=== PATIENT | female | born 1950 | race Caucasian/White ===

== ENCOUNTER → 2016-03-24 | Outpatient (REF) | payer MEDICARE ==
[2016-03-24 12:50] LABS: ALBUMIN 4.2 GM/DL (3.2-5.2); ALBUMIN/GLOBULIN RATIO 1.68 (1.00-1.93); BILIRUBIN,TOTAL 0.5 MG/DL (0.2-1.0); CALCIUM LEVEL 9.8 MG/DL (8.8-10.2); CREATININE FOR GFR 1.12 MG/DL (0.55-1.02); POTASSIUM SERUM 4.5 MEQ/L (3.5-5.1); TOTAL PROTEIN 6.7 GM/DL (6.4-8.2)
[2016-03-24 13:06] LABS: MEAN CORPUSCULAR HEMOGLOBIN 28.9 pg (27.0-33.0); MEAN CORPUSCULAR HGB CONC 32.9 g/dl (32.0-36.5); WHITE BLOOD COUNT 4.5 K/mm3 (4.0-10.0)
== END ==
LOC: M SFHCPLAZ 08:20
PROVIDERS: ATTEND Internal Medicine
DX: Z85.3 Personal history of malignant neoplasm of breast (principal); E11.9 Type 2 diabetes mellitus without complications; E78.00 Pure hypercholesterolemia, unspecified; M85.80 Other specified disorders of bone density and structure, unspecified site

== ENCOUNTER → 2016-05-16 | Outpatient (RCR) | payer MEDICARE | LOC: M PT 08:58 | PROVIDERS: ATTEND Physician Assistant Medical | DX: Z51.89 Encounter for other specified aftercare (principal); M76.62 Achilles tendinitis, left leg | CPT/HCPCS: 97161; G8978; G8979 ==

== ENCOUNTER 2016-06-12 08:44 | Outpatient (RCR) | payer MEDICARE | END 2016-06-15 | LOC: M PT 08:44 | PROVIDERS: ATTEND Physician Assistant Medical | DX: M76.62 Achilles tendinitis, left leg (principal) ==

== ENCOUNTER 2016-07-08 10:57 | Outpatient (RCR) | payer MEDICARE | END 2016-07-08 12:32 | disposition home or self-care (01) | LOC: M PT 10:57 | PROVIDERS: ATTEND Physician Assistant Medical | DX: Z51.89 Encounter for other specified aftercare (principal); M76.62 Achilles tendinitis, left leg | CPT/HCPCS: 97110; 97140; 97530; G8978; G8979; G8980 ==

== ENCOUNTER → 2016-07-31 | Outpatient (CLI) | payer MEDICARE ==
--- NOTE | 2016-07-31 12:36 | REP ---
Chest two views HISTORY: Cough Comparison: 02/21/2011 The lungs are clear. The heart is normal in size. The pulmonary vasculature is normal in appearance. The bony structure is intact. IMPRESSION: No acute disease. Signed by Mike Garcia MD 07/31/2016 12:28 P
== END ==
LOC: M SMT 12:04
PROVIDERS: ATTEND Family Medicine
DX: R05 Cough (principal)
CPT/HCPCS: 71020; 94010; G0463

== ENCOUNTER → 2016-09-12 | Outpatient (CLI) | payer MEDICARE ==
--- NOTE | 2016-09-12 11:56 | REP ---
MRI LEFT ANKLE: TECHNIQUE: Sagittal proton density, STIR, axial proton density fat sat, T1, coronal proton density, STIR. The Achilles tendon is thickened diffusely with mild intrasubstance increased signal. There is diffuse high signal edema in the soft tissues directly anterior to the tendon. Findings are compatible with tendinopathy and significant tendonitis. The anterior tibial, posterior tibial, flexor hallucis longus, flexor digitorum longus, and peroneal tendons are all intact without significant tenosynovitis. The plantar tendon is intact. There is no evidence of plantar fascitis. Anterior and posterior talofibular, calcaneofibular, and deltoid ligaments appear intact. No fluid collections are seen. Visualized osseous structures demonstrate normal marrow signal with no occult fracture. Tibiotalar joint is unremarkable with no osteochrondral lesion identified. IMPRESSION: Findings consistent with significant Achilles tendonitis and peritendinitis. Possible tiny intrasubstance tear in the Achilles denoted by a tiny high signal focus on STIR images and other T2-weighted sequences. No other evidence of tendon or ligament tear. Signed by Yuri Hernandez MD 09/12/2016 03:30 P
== END ==
LOC: M RAD 10:11
PROVIDERS: ATTEND Orthopaedic Surgery
DX: M25.572 Pain in left ankle and joints of left foot (principal)

== ENCOUNTER → 2016-11-06 | Outpatient (REF) | payer MEDICARE ==
[2016-11-06 12:51] LABS: CREATININE FOR GFR 1.05 MG/DL (0.55-1.02); GLOMERULAR FILTRATION RATE 55.8 (>45)
[2016-11-06 12:52] LABS: ALBUMIN 3.8 GM/DL (3.2-5.2); ALBUMIN/GLOBULIN RATIO 1.23 (1.00-1.93); BILIRUBIN,TOTAL 0.7 MG/DL (0.2-1.0); CALCIUM LEVEL 9.4 MG/DL (8.8-10.2); POTASSIUM SERUM 4.6 MEQ/L (3.5-5.1); TOTAL PROTEIN 6.9 GM/DL (6.4-8.2)
== END ==
LOC: M SFHCPLAZ 08:52
PROVIDERS: ATTEND Internal Medicine
DX: I10 Essential (primary) hypertension (principal); E11.9 Type 2 diabetes mellitus without complications; E78.00 Pure hypercholesterolemia, unspecified

== ENCOUNTER → 2017-05-01 | Outpatient (REF) | payer MEDICARE ==
[2017-05-01 11:03] LABS: ALBUMIN 3.8 GM/DL (3.2-5.2); ALBUMIN/GLOBULIN RATIO 1.31 (1.00-1.93); ALKALINE PHOSPHATASE 73 U/L (45-117); ALT/SGPT 28 U/L (12-78); ANION GAP 7 MEQ/L (8-16); AST/SGOT 15 U/L (7-37); BILIRUBIN,TOTAL 0.5 MG/DL (0.2-1.0); BLOOD UREA NITROGEN 21 MG/DL (7-18); CARBON DIOXIDE LEVEL 28 MEQ/L (21-32); CHLORIDE LEVEL 109 MEQ/L (98-107); GLOMERULAR FILTRATION RATE 59.1 (>45); GLUCOSE, FASTING 95 MG/DL (70-100); MAGNESIUM LEVEL 1.8 MG/DL (1.8-2.4); POTASSIUM SERUM 4.6 MEQ/L (3.5-5.1); SODIUM LEVEL 144 MEQ/L (136-145); TOTAL PROTEIN 6.7 GM/DL (6.4-8.2)
[2017-05-01 11:05] LABS: ESTIMATED AVERAGE GLUCOSE 111 MG/DL (60-110); HEMOGLOBIN A1c 5.5 %
[2017-05-01 11:29] LABS: MALB URINE SIEMENS 18.1 MG/L; MAU/CREAT RATIO 10.2 MCG/MG (0.0-30.0)
[2017-05-01 12:05] LABS: FOLATE 22.9 NG/ML; VITAMIN B12 LEVEL 478 PG/ML
== END ==
LOC: M SFHCPLAZ 08:06
DX: R53.82 Chronic fatigue, unspecified (principal); E11.9 Type 2 diabetes mellitus without complications; I10 Essential (primary) hypertension
CPT/HCPCS: 82746

== ENCOUNTER → 2017-10-26 | Outpatient (REF) | payer MEDICARE ==
[2017-10-26 10:31] LABS: ALBUMIN 3.8 GM/DL (3.2-5.2); ALBUMIN/GLOBULIN RATIO 1.23 (1.00-1.93); ALKALINE PHOSPHATASE 76 U/L (45-117); ALT/SGPT 26 U/L (12-78); ANION GAP 7 MEQ/L (8-16); AST/SGOT 16 U/L (7-37); BILIRUBIN,TOTAL 0.5 MG/DL (0.2-1.0); BLOOD UREA NITROGEN 20 MG/DL (7-18); CALCIUM LEVEL 9.4 MG/DL (8.8-10.2); CARBON DIOXIDE LEVEL 29 MEQ/L (21-32); CHLORIDE LEVEL 106 MEQ/L (98-107); GLOMERULAR FILTRATION RATE 52.7 (>45); GLUCOSE, FASTING 102 MG/DL (70-100); POTASSIUM SERUM 4.3 MEQ/L (3.5-5.1); SODIUM LEVEL 142 MEQ/L (136-145); TOTAL PROTEIN 6.9 GM/DL (6.4-8.2)
[2017-10-26 14:53] LABS: MALB URINE SIEMENS 53.2 MG/L
[2017-10-27 01:22] LABS: ESTIMATED AVERAGE GLUCOSE 108 MG/DL (60-110); HEMOGLOBIN A1c 5.4 %
[2017-10-27 04:36] LABS: MAU/CREAT RATIO 0.2 MCG/MG (0.0-30.0)
== END ==
LOC: M SFHCPLAZ 08:11
DX: I10 Essential (primary) hypertension (principal); E11.9 Type 2 diabetes mellitus without complications
CPT/HCPCS: 80053

== ENCOUNTER → 2018-01-17 | Outpatient (CLI) | payer MEDICARE | LOC: M WUC 13:52 | DX: S40.012A Contusion of left shoulder, initial encounter (principal); S40.022A Contusion of left upper arm, initial encounter; S70.01XA Contusion of right hip, initial encounter; M19.012 Primary osteoarthritis, left shoulder; X58.XXXA Exposure to other specified factors, initial encounter; Y92.9 Unspecified place or not applicable; Y93.9 Activity, unspecified; Y99.9 Unspecified external cause status | CPT/HCPCS: 73000 ==

== ENCOUNTER → 2018-04-22 | Outpatient (REF) | payer MEDICARE ==
[~2018-04-22] MED LIST: ACET25TA12 PO; CALCTAB41 PO; D3 22000 PO; ESOM40CA35 PO; FLUTISP NARES; HUMI40IN2 SC; HUMI40KI2; HYDR200T3 PO; LISI-538 PO; MIRA3350 PO; MIRA33504 PO; MULTCAP PO; NAPR-885 PO; NEXI40GR PO; VITA200025 PO; VITMTA PO; plaquenil
[2018-04-22 14:07] LABS: ALBUMIN 3.7 GM/DL (3.2-5.2); BILIRUBIN,TOTAL 0.6 MG/DL (0.2-1.0); CALCIUM LEVEL 8.6 MG/DL (8.8-10.2); CHOLESTEROL RISK RATIO 3.029 (<5); CREATININE FOR GFR 1.05 MG/DL (0.55-1.30); GLOMERULAR FILTRATION RATE 55.7 (>45); MAGNESIUM LEVEL 2.1 MG/DL (1.8-2.4); POTASSIUM SERUM 4.7 MEQ/L (3.5-5.1); TOTAL PROTEIN 6.6 GM/DL (6.4-8.2)
[2018-04-22 14:44] LABS: HEMOGLOBIN A1c 5.8 %
== END ==
LOC: M SFHCPLAZ 07:52
PROVIDERS: ATTEND Internal Medicine
DX: I10 Essential (primary) hypertension (principal); E11.9 Type 2 diabetes mellitus without complications; E78.00 Pure hypercholesterolemia, unspecified

== ENCOUNTER 2018-04-25 06:18 | Inpatient (IN) | payer MEDICARE ==
[~2018-04-25] VITALS: Ht 167.6 cm; Wt 88.6 kg
[2018-04-25] MEDS ORDERED: NEXI40GR PO (07:04)
[2018-04-25] MEDS ORDERED: CALCTAB41 PO (07:04)
[2018-04-25] MEDS ORDERED: MULTCAP PO (07:04)
[2018-04-25] MEDS ORDERED: VITA200025 PO (07:04)
[2018-04-25] MEDS ORDERED: LISI-538 PO (07:04)
[2018-04-25] MEDS ORDERED: MIRA3350 PO (07:04)
[2018-04-25] MEDS ORDERED: NAPR-885 PO (07:04)
[2018-04-25] MEDS ORDERED: HUMI40KI2 (07:04)
[2018-04-25] MEDS ORDERED: plaquenil (07:04)
[2018-04-25] MEDS ORDERED: NS 1,000 ML IV SCH (09:28)
[2018-04-25] MEDS ORDERED: KETOROLAC 30 MG/ML VIAL (J1885) IV ONE (09:30)
[2018-04-25 09:33] LABS: BASO % 0.3 % (0.0-1.0); EOS # 0.1 10^3/uL (0.0-0.50); EOS % 0.5 % (0.0-3.0); HEMATOCRIT 36.9 % (36.0-47.0); LYMPH # 1.3 10^3/uL (1.5-4.5); LYMPH % 10.3 % (24.0-44.0); MEAN CORPUSCULAR HEMOGLOBIN 28.4 pg (27.0-33.0); MEAN CORPUSCULAR HGB CONC 32.5 g/dl (32.0-36.5); MEAN CORPUSCULAR VOLUME 87.4 fl (80.0-96.0); MONO # 1.1 10^3/uL (0.0-0.8); MONO % 8.6 % (0.0-5.0); NEUTROPHILS % 79.8 % (36.0-66.0); PLATELET COUNT, AUTOMATED 217 10^3/uL (150-450); RED BLOOD COUNT 4.22 10^6/uL (4.00-5.40); WHITE BLOOD COUNT 12.5 10^3/uL (4.0-10.0)
[2018-04-25] MEDS: GASTROGRAFIN SOLUTION 30ML PO SCH ×2 (10:09→10:40)
[2018-04-25 10:34] LABS: ALBUMIN 3.4 GM/DL (3.2-5.2); BILIRUBIN,DIRECT 0.3 MG/DL (0.0-0.2); CREATININE FOR GFR 1.02 MG/DL (0.55-1.30); GLOMERULAR FILTRATION RATE 57.5 (>45); POTASSIUM SERUM 3.8 MEQ/L (3.5-5.1); TOTAL PROTEIN 7.6 GM/DL (6.4-8.2)
[2018-04-25] MEDS ORDERED: ISOVUE-370 76% 100ML VIAL (Q9967) As Ordered ONE (10:56)
--- NOTE | 2018-04-25 13:20 | REP ---
CT of the abdomen pelvis with IV and oral contrast for right lower quadrant pain: There are no comparison studies. The appendix cannot be identified, however, there is no pericecal inflammation or abscess. There are numerous diverticula in the sigmoid colon. There is diffuse sigmoid colon wall thickening. There is pericolonic phlegmon of the sigmoid colon. There is a loop of distal small bowel within the phlegmon also demonstrating wall thickening compatible with ileitis. The terminal ileum is unremarkable. There is no ascites. There is no pneumoperitoneum. The findings are compatible with acute and chronic diverticulitis. The visualized lung root are unremarkable. The hepatic parenchyma, gallbladder, pancreas, spleen, adrenals, kidneys and abdominal aorta are unremarkable. There is no bowel distension or obstruction. Pelvis: Acute on chronic diverticulitis as described. No pneumoperitoneum or ascites. No adenopathy or mass. The bladder is unremarkable. Uterus and adnexa are otherwise unremarkable. Impression: Acute on chronic sigmoid colon diverticulitis as described. There is a loop of distal small bowel within the pericolonic phlegmon also demonstrating wall thickness compatible with focal enteritis. No pneumoperitoneum or ascites. No bowel distension or obstruction. Electronically Signed by Yuri Ureña MD 04/25/2018 01:11 P
[2018-04-25] MEDS ORDERED: ERTAPENEM SODIUM 1 GM in NS MINI-BAG PLUS 50 ML IV ONE (14:30)
[2018-04-25] MEDS ORDERED: D3 22000 PO (14:35)
[2018-04-25] MEDS ORDERED: HYDR200T3 PO (14:35)
[2018-04-25] MEDS ORDERED: MIRA33504 PO (14:35)
[2018-04-25] MEDS ORDERED: ESOM40CA35 PO (14:35)
[2018-04-25] MEDS ORDERED: HUMI40IN2 SC (14:35)
[2018-04-25] MEDS ORDERED: VITMTA PO (14:35)
[2018-04-25] MEDS ORDERED: ACET25TA12 PO (14:35)
[2018-04-25] MEDS ORDERED: FLUTISP NARES (14:37)
[2018-04-25] MEDS ORDERED: FLUTICASONE PROP 0.05% NASAL SPRAY 16 GM (FLONASE) NARES PRN (16:30)
[2018-04-25] MEDS ORDERED: traMADol 50 MG TAB PO PRN (16:30)
[2018-04-25] MEDS ORDERED: MIRALAX *UNIT DOSE* 17GM PACKET PO PRN (16:30)
[2018-04-25] MEDS: NAPROXEN 250 MG TAB PO PRN (17:20)
[2018-04-25] MEDS: MORPHINE 4 MG/ML 1ML VIAL/SYRINGE (J2270) IV PRN (17:20)
[2018-04-25] MEDS: ONDANSETRON 4MG/2ML VIAL (J2405) IV PRN (17:20)
--- NOTE | 2018-04-25 18:03 | HPE ---
DATE OF ADMISSION: 04/25/2018 CHIEF COMPLAINT: Right lower quadrant abdominal pain. HISTORY OF PRESENT ILLNESS: This is a 67-year-old female with past medical history of rheumatoid arthritis on Humira, gastroesophageal reflux disease (GERD), fatty liver disease, who presents with chief complaint of 3 days of right-sided abdominal pain. She reports that over the last 3 days she has had this sharp pain in her right lower quadrant which is particularly worse when she moves. She denies any diarrhea, but does report some chronic constipation. She denies any vomiting, but does report that she has had some decreased by mouth intake and by mouth intolerance recently. No known fevers. Her last bout of diverticulitis was over 25 years ago. She did have a colonoscopy about [address] Gonzales that she reports had known diverticulosis. EMERGENCY ROOM COURSE: Patient in the emergency room (ER) was noted on CT scan to have acute on chronic sigmoid colon diverticulitis. There was concern of possibly a pericolonic phlegmon and Dr. Cristobal was called by the emergency room. Given patient's relative immunosuppression with rheumatoid arthritis on Humira and possible pericolonic phlegmon, she was admitted for IV antibiotic administration for her diverticulitis. REVIEW OF SYSTEMS: Negative in 14 out of 14 systems except as noted above. PAST MEDICAL HISTORY: As noted above in history of present illness (HPI). PAST SURGICAL HISTORY: Patient has a history of left lumpectomy from a breast cancer which is now cured. She also has three prior breast biopsies for growths that turned out to be benign. MEDICATIONS: Patient's home medications are: - calcium/vitamin D tablets one tablet by mouth every evening - Tylenol Extra Strength one tablet nightly as needed for pain - vitamin D 2000 units by mouth daily - Humira 40 mg subcutaneous every 2 weeks - Nexium 40 mg daily - fluticasone 50 mcg two sprays daily as needed for nasal congestion - Plaquenil 200 mg twice a day - lisinopril 20 mg daily - multivitamin one tablet daily - Naprosyn 500 mg by mouth twice a day as needed for pain - MiraLAX one packet daily as needed for constipation ALLERGIES: Patient has multiple allergies to BACITRACIN, CELECOXIB, CODEINE, DOXYCYCLINE, FLAGYL, NEOMYCIN, PENICILLIN, PENICILLIN CROSS-REACTORS, POLYMYXIN, RAMIPRIL, SULFA DRUGS, SULFA DRUG CROSS-REACTORS. SOCIAL HISTORY: Patient is a [employer] and lives with 30 other sisters. No smoking, alcohol, or drugs. FAMILY HISTORY: She has three uncles with a history of colon cancer. PHYSICAL EXAMINATION: On exam, patient is currently afebrile to 97.4, blood pressure 137/66, pulse is 76, respirations 16, saturating at 99% in room air. GENERAL: She is in no acute distress and a pleasant, elderly female. HEENT EXAM: Oropharynx clear. CARDIOVASCULAR: Regular rate and rhythm, no murmurs, rubs, gallops. LUNGS: Clear to auscultation bilaterally. ABDOMEN: Obese, she has some tenderness to palpation most prominently in the right lower quadrant, no rebound or guarding. EXTREMITIES: No clubbing, cyanosis, edema. NEUROLOGIC: She is alert and oriented times three, follows simple commands, no focal neurologic deficit. SKIN: Intact. PSYCHIATRIC: Mood stable. LABORATORY DATA: Reveal white count of 12.5, hemoglobin of 12, platelets of 217. Chemistry with a creatinine of 1.02, BUN of 20. Urine shows 4 whites, 2 reds. IMAGING: CT abdomen and pelvis shows acute on chronic sigmoid colon diverticulitis as described. There is a loop of small bowel within the pericolonic phlegmon also demonstrating wall thickness compatible with focal enteritis. No pneumoperitoneum or ascites. No bowel distention or obstruction. ASSESSMENT AND PLAN: This is a 67-year-old female with rheumatoid arthritis on Humira, gastroesophageal reflux disease (GERD), fatty liver, who presents with right lower quadrant abdominal pain, being admitted for acute on chronic diverticulitis. 1. Diverticulitis. Given patient's relative immunosuppression and decreased by mouth intake and also multiple drug allergies, we will admit her for IV administration of antibiotics in place of outpatient therapy. Additionally, her CT scan warrants at least a surgical evaluation. Given her multiple allergies, I am starting her on ertapenem for the treatment of diverticulitis which is the single regimen recommendation for patients with allergies to penicillin. Her Flagyl allergy is really unknown, so primary team tomorrow can consider giving her a trial of the Flagyl to see if she can tolerate this as an outpatient medication. She will need approximately 10 days for treatment for the diverticulitis. I am starting her on a full liquid diet and she can be advanced as tolerated. For pain control, I am giving her tramadol as needed for moderate pain and morphine as needed for severe pain. She is very hesitant to take any opioids, however I emphasized to her that she needs to be comfortable. She also takes Naprosyn chronically for her arthritic pain which I will continue. I placed her on a bowel regimen in the setting of chronic constipation now potentially receiving opioids. Of note, Dr. Cristobal with surgery will see the patient and an order has been placed in the chart. 2. History of rheumatoid arthritis. I am continuing her home Plaquenil. 3. Chronic constipation. She is on MiraLAX as needed which I will continue. Also, I am starting her on a Senna/Colace combination to prevent worsening constipation with opioids. 4. Fluid, electrolytes, nutrition. She is on a full liquid diet and receiving IV fluids at 150 mL/hour by the ED which I will discontinue as patient can tolerate PO and is not overtly dehydrated 5. Deep venous thrombosis (DVT) prophylaxis. Subcutaneous heparin. MTDD
[2018-04-25 18:37] VITALS: BP 180/76
[2018-04-25] MEDS: HYDROXYCHLOROQUINE 200 MG TAB PO SCH (21:01)
[2018-04-25] MEDS: LISINOPRIL 20 MG TAB PO SCH (21:01)
[2018-04-25] MEDS: SENOKOT S TAB PO SCH (21:01)
[2018-04-25] MEDS: ACETAMINOPHEN TAB 650MG DOSE (2X325MG) PO PRN (21:02)
[2018-04-25 22:00] VITALS: BP 150/70
[2018-04-26 06:00] VITALS: BP 133/65
[2018-04-26 07:08] LABS: HEMATOCRIT 32.5 % (36.0-47.0); HEMOGLOBIN 10.6 g/dl (12.0-15.5); MEAN CORPUSCULAR HEMOGLOBIN 28.6 pg (27.0-33.0); MEAN CORPUSCULAR HGB CONC 32.6 g/dl (32.0-36.5); MEAN CORPUSCULAR VOLUME 87.6 fl (80.0-96.0); PLATELET COUNT, AUTOMATED 186 10^3/uL (150-450); RED BLOOD COUNT 3.71 10^6/uL (4.00-5.40); WHITE BLOOD COUNT 9.4 10^3/uL (4.0-10.0)
[2018-04-26 07:38] LABS: BLOOD UREA NITROGEN 18 MG/DL (7-18); CALCIUM LEVEL 8.4 MG/DL (8.8-10.2); CARBON DIOXIDE LEVEL 24 MEQ/L (21-32); CHLORIDE LEVEL 109 MEQ/L (98-107); CREATININE FOR GFR 0.93 MG/DL (0.55-1.30); GLOMERULAR FILTRATION RATE > 60.0 (>45); GLUCOSE, FASTING 75 MG/DL (70-100); POTASSIUM SERUM 3.7 MEQ/L (3.5-5.1); SODIUM LEVEL 142 MEQ/L (136-145)
[2018-04-26] MEDS ORDERED: PANTOPRAZOLE 40MG TAB (PROTONIX) PO SCH (09:00)
[2018-04-26] MEDS: ERTAPENEM SODIUM 1 GM in NS MINI-BAG PLUS 50 ML IV SCH (10:04)
[2018-04-26] MEDS: MULTIVITAMINS/MINERALS THERAP 1 TAB PO SCH (10:05)
[2018-04-26] MEDS: LISINOPRIL 20 MG TAB PO SCH (10:05)
[2018-04-26] MEDS: SENOKOT S TAB PO SCH ×2 (10:05→20:13)
[2018-04-26] MEDS: HYDROXYCHLOROQUINE 200 MG TAB PO SCH (10:05)
[2018-04-26] MEDS: ENOXAPARIN 40 MG/0.4 ML SYRINGE (J1650) SC SCH (10:06)
[2018-04-26] MEDS: NAPROXEN 250 MG TAB PO PRN (10:21)
[2018-04-26] MEDS: ONDANSETRON 4MG/2ML VIAL (J2405) IV PRN (12:09)
[2018-04-26] MEDS: MORPHINE 4 MG/ML 1ML VIAL/SYRINGE (J2270) IV PRN (12:10)
[2018-04-26] MEDS: NS 0.45% 1,000 ML IV SCH ×2 (13:12→22:35)
[2018-04-26 14:00] VITALS: BP 185/82
--- NOTE | 2018-04-26 15:48 | IPNPDOC ---
Subjective Date Seen The patient was seen on 04/26/18. Subjective Chief Complaint/HPI Patient seen and examined at bedside. Reports overall improvement of her abdominal pain. However, still notes that she had some abdominal pain this morning when eating breakfast mostly in the right lower quadrant area. Denies any complaints of nausea, vomiting, or diarrhea. Objective Physical Examination General Exam: Positive: Alert, Cooperative, No Acute Distress ENT Exam: Positive: Atraumatic, Mucous membr. moist/pink Neck Exam: Negative: JVD Chest Exam: Positive: Clear to auscultation, Normal air movement Heart Exam: Positive: Rate Normal, Normal S1, Normal S2 Abdomen Exam: Positive: Soft, Tenderness (tenderness to deep palpation in the right lower quadrant area and left lower quadrant area. No rebound tenderness, guarding, or rigidity noted.) Extremity Exam: Negative: Tenderness, Swelling Psych Exam: Positive: Oriented x 3 Assessment /Plan Plan/VTE VTE Prophylaxis Ordered?: Yes Plan Acute on Chronic Sigmoid Colon Diverticulitis, Distal Small Bowel Enteritis CT Abd/Pel noted Patient reports improvement of overall pain this morning She has remained afebrile and her WBC has normalized General Surgery consulted Cont on IV Ertapenem for now given extensive Hx of allergies to Abx IV fluid hydration ordered We will cont to monitor the patient Hx of rheumatoid arthritis On Humira as outpatient Plaquenil on hold 2/2 acute infection Hypertension, stable Continue lisinopril Seasonal allergies Flonase when necessary GERD Continue Protonix DVT prophylaxis Lovenox subcutaneous VS, I&O, 24H, Fishbone Vital Signs/I&O Vital Signs Date Time Temp Pulse Resp B/P (MAP) Pulse Ox O2 Delivery O2 Flow Rate FiO2 04/26/18 14:00 98.1 70 20 185/82 (116) 90 04/25/18 18:15 Room Air I&O- Last 24 Hours up to 6 AM 04/26/18 06:00 Intake Total 660 ml Output Total 0 ml Balance 660 ml Laboratory Data 24H LABS Laboratory Tests 2 04/26/18 06:26: Nucleated Red Blood Cells % (auto) 0.0, Anion Gap 9, Glomerular Filtration Rate > 60.0, Blood Urea Nitrogen 18, Creatinine 0.93, Sodium Level 142, Potassium Level 3.7, Chloride Level 109H, Carbon Dioxide Level 24, Calcium Level 8.4L CBC/BMP Laboratory Tests 04/26/18 06:26 Red Blood Count 3.71 L, Mean Corpuscular Volume 87.6, Mean Corpuscular Hemoglobin 28.6, Mean Corpuscular Hemoglobin Concent 32.6, Red Cell Distribution Width 13.2, Calcium Level 8.4 L Microbiology Microbiology 04/25/18 Urine Culture - Final, Complete RADHA DELAROSA MD Apr 26, 2018 15:48
[2018-04-26 18:00] VITALS: BP 144/67
[2018-04-26 22:00] VITALS: BP 159/72
[2018-04-27 02:00] VITALS: BP 143/70
[2018-04-27] MEDS: ACETAMINOPHEN TAB 650MG DOSE (2X325MG) PO PRN (02:33)
[2018-04-27] MEDS: PANTOPRAZOLE 40MG TAB (PROTONIX) PO SCH (05:33)
[2018-04-27 06:00] VITALS: BP 135/65
[2018-04-27 09:45] LABS: HEMATOCRIT 34.1 % (36.0-47.0); HEMOGLOBIN 10.9 g/dl (12.0-15.5); MEAN CORPUSCULAR HEMOGLOBIN 28.2 pg (27.0-33.0); MEAN CORPUSCULAR VOLUME 88.1 fl (80.0-96.0); PLATELET COUNT, AUTOMATED 215 10^3/uL (150-450); RED BLOOD COUNT 3.87 10^6/uL (4.00-5.40); WHITE BLOOD COUNT 7.9 10^3/uL (4.0-10.0)
[2018-04-27 09:48] LABS: BLOOD UREA NITROGEN 14 MG/DL (7-18); CALCIUM LEVEL 8.7 MG/DL (8.8-10.2); CARBON DIOXIDE LEVEL 22 MEQ/L (21-32); CHLORIDE LEVEL 110 MEQ/L (98-107); GLOMERULAR FILTRATION RATE > 60.0 (>45); GLUCOSE, FASTING 76 MG/DL (70-100); POTASSIUM SERUM 3.8 MEQ/L (3.5-5.1); SODIUM LEVEL 141 MEQ/L (136-145)
[2018-04-27] MEDS: ERTAPENEM SODIUM 1 GM in NS MINI-BAG PLUS 50 ML IV SCH (09:53)
[2018-04-27] MEDS: ENOXAPARIN 40 MG/0.4 ML SYRINGE (J1650) SC SCH (09:53)
[2018-04-27] MEDS: SENOKOT S TAB PO SCH ×2 (09:54→21:13)
[2018-04-27] MEDS: NS 0.45% 1,000 ML IV SCH (09:54)
[2018-04-27] MEDS: MULTIVITAMINS/MINERALS THERAP 1 TAB PO SCH (09:54)
[2018-04-27] MEDS: LISINOPRIL 20 MG TAB PO SCH (09:58)
[2018-04-27] MEDS: NAPROXEN 250 MG TAB PO PRN ×2 (10:30→21:18)
[2018-04-27 11:00] VITALS: BP 150/70
[2018-04-27 14:00] VITALS: BP 167/77
--- NOTE | 2018-04-27 14:03 | IPNPDOC ---
Subjective Date Seen The patient was seen on 04/27/18. Subjective Chief Complaint/HPI Patient seen and examined at bedside. Reports that her abdominal pain is significantly improved this morning. Her diet status was changed to nothing by mouth yesterday afternoon after she reported a worsening of her abdominal pain. However, the patient states that she is feeling better today and would like to try a diet. She has been started on a clear liquid diet by surgery. Otherwise, the patient denies any overnight fevers, chills, nausea, vomiting, or diarrhea. Objective Physical Examination General Exam: Positive: Alert, Cooperative, No Acute Distress ENT Exam: Positive: Atraumatic, Mucous membr. moist/pink Neck Exam: Negative: JVD Chest Exam: Positive: Clear to auscultation, Normal air movement Heart Exam: Positive: Rate Normal, Normal S1, Normal S2 Abdomen Exam: Positive: Soft, Tenderness (mild tenderness to deep palpation in the right lower quadrant area. No rebound tenderness, guarding, or rigidity noted.) Extremity Exam: Negative: Tenderness, Swelling Psych Exam: Positive: Oriented x 3 Assessment /Plan Plan/VTE VTE Prophylaxis Ordered?: Yes Plan Acute on Chronic Sigmoid Colon Diverticulitis, Distal Small Bowel Enteritis CT Abd/Pel noted Patient reports improvement of overall pain this morning, started on clear liquid diet--We will advance as tolerated She has remained afebrile and her WBC has normalized General Surgery on board Cont on IV Ertapenem for now given extensive Hx of allergies to Abx IV fluid hydration ordered--Will D/C once the patient is able to tolerate a diet We will cont to monitor the patient Hx of rheumatoid arthritis On Humira as outpatient Plaquenil on hold 2/2 acute infection Hypertension, stable Continue lisinopril Seasonal allergies Flonase when necessary GERD Continue Protonix DVT prophylaxis Lovenox subcutaneous Disposition--Anticipate D/C in the next 24-48 hrs pending continued clinical improvement. VS, I&O, 24H, Fishbone Vital Signs/I&O Vital Signs Date Time Temp Pulse Resp B/P (MAP) Pulse Ox O2 Delivery O2 Flow Rate FiO2 04/27/18 11:00 98.3 70 19 150/70 (96) 99 04/25/18 18:15 Room Air I&O- Last 24 Hours up to 6 AM 04/27/18 06:00 Intake Total 2540 ml Output Total 800 ml Balance 1740 ml Laboratory Data 24H LABS Laboratory Tests 2 04/27/18 06:11: Nucleated Red Blood Cells % (auto) 0.0 04/27/18 06:15: Anion Gap 9, Glomerular Filtration Rate > 60.0, Blood Urea Nitrogen 14, Creatinine 0.90, Sodium Level 141, Potassium Level 3.8, Chloride Level 110H, Carbon Dioxide Level 22, Calcium Level 8.7L, C-Reactive Protein, Quantitative 20.70H CBC/BMP Laboratory Tests 04/27/18 06:11 Red Blood Count 3.87 L, Mean Corpuscular Volume 88.1, Mean Corpuscular Hemoglobin 28.2, Mean Corpuscular Hemoglobin Concent 32.0, Red Cell Distribution Width 13.1 04/27/18 06:15 Calcium Level 8.7 L Microbiology Microbiology 04/25/18 Urine Culture - Final, Complete RADHA DELAROSA MD Apr 27, 2018 14:03
--- NOTE | 2018-04-27 16:44 | IPN ---
DATE: 04/27/2018 The patient yesterday had some severe crampy abdominal pain which, at that time, I placed her nothing by mouth, and over the day, she has improved substantially from the abdominal pain standpoint, essentially still has some mild pain and tenderness to palpation, but much better than it was yesterday. She has been afebrile and her white count has been normal for the last 48 hours. She has had some flatus and no bowel movements, however. On her physical examination, she still has some tenderness but this is much better than it was yesterday and there is no significant guarding or rebound. IMPRESSION AND PLAN: The patient has improving diverticulitis and my recommendation is to start her on a clear liquid diet. If she does well today with clear liquids, possibly advancing her to a low-residue diet tomorrow would be warranted, once again if she tolerates this. Otherwise, we will continue with current treatment for her at this point.
[2018-04-27 18:30] VITALS: BP 143/65
[2018-04-27 22:00] VITALS: BP 148/70
[2018-04-28 02:00] VITALS: BP 171/74
[2018-04-28] MEDS: PANTOPRAZOLE 40MG TAB (PROTONIX) PO SCH (05:16)
[2018-04-28 06:00] VITALS: BP 168/71
[2018-04-28 06:45] LABS: HEMATOCRIT 34.8 % (36.0-47.0); HEMOGLOBIN 11.1 g/dl (12.0-15.5); MEAN CORPUSCULAR HGB CONC 31.9 g/dl (32.0-36.5); MEAN CORPUSCULAR VOLUME 87.9 fl (80.0-96.0); PLATELET COUNT, AUTOMATED 240 10^3/uL (150-450); RED BLOOD COUNT 3.96 10^6/uL (4.00-5.40)
[2018-04-28 07:05] LABS: BLOOD UREA NITROGEN 10 MG/DL (7-18); CALCIUM LEVEL 8.4 MG/DL (8.8-10.2); CARBON DIOXIDE LEVEL 26 MEQ/L (21-32); CHLORIDE LEVEL 109 MEQ/L (98-107); CREATININE FOR GFR 0.89 MG/DL (0.55-1.30); GLOMERULAR FILTRATION RATE > 60.0 (>45); GLUCOSE, FASTING 89 MG/DL (70-100); POTASSIUM SERUM 3.8 MEQ/L (3.5-5.1); SODIUM LEVEL 141 MEQ/L (136-145)
[2018-04-28] MEDS: MULTIVITAMINS/MINERALS THERAP 1 TAB PO SCH (08:43)
[2018-04-28] MEDS: SENOKOT S TAB PO SCH ×2 (08:43→21:31)
[2018-04-28] MEDS: LISINOPRIL 20 MG TAB PO SCH (08:43)
[2018-04-28] MEDS: ENOXAPARIN 40 MG/0.4 ML SYRINGE (J1650) SC SCH (08:44)
[2018-04-28] MEDS: NAPROXEN 250 MG TAB PO PRN ×2 (08:45→21:39)
[2018-04-28] MEDS: ERTAPENEM SODIUM 1 GM in NS MINI-BAG PLUS 50 ML IV SCH (08:45)
[2018-04-28 10:00] VITALS: BP 162/78
--- NOTE | 2018-04-28 12:06 | IPN ---
DATE: 04/28/2018 The patient overall has been doing a little better than she was yesterday. She has been afebrile and decreasing abdominal pain. Did have some diarrhea this morning as expected with typical diverticulitis resolution and had a white count which was 6.0 this morning. Otherwise doing well. States that she still has pain discomfort on the right lateral border of her rectus muscle in the suprapubic area. This has been persistent for her and a little bit better than it was, but still is the problem area. Otherwise she has benign abdomen, softer than it was previously, less distended. IMPRESSION AND PLAN: The patient has evidence of resolving diverticulitis and at this point would recommend that she started on low residue diet and if she tolerates this overnight discharge to home tomorrow with by mouth antibiotics for 7-10 days and then follow with myself in 2-3 weeks.
[2018-04-28 14:00] VITALS: BP 128/59
--- NOTE | 2018-04-28 16:14 | IPNPDOC ---
Subjective Date Seen The patient was seen on 04/28/18. Subjective Chief Complaint/HPI Patient seen and examined at the bedside this morning. She states that her abdominal pain is improving, as she would like her diet to be advanced. She denies any acute overnight events. Objective Physical Examination General Exam: Positive: Alert, Cooperative, No Acute Distress ENT Exam: Positive: Atraumatic, Mucous membr. moist/pink Neck Exam: Negative: JVD Chest Exam: Positive: Clear to auscultation, Normal air movement Heart Exam: Positive: Rate Normal, Normal S1, Normal S2 Abdomen Exam: Positive: Soft, Tenderness (mild tenderness to deep palpation in the right lower quadrant area. No rebound tenderness, guarding, or rigidity noted.) Extremity Exam: Negative: Tenderness, Swelling Psych Exam: Positive: Oriented x 3 Assessment /Plan Plan/VTE VTE Prophylaxis Ordered?: Yes Plan Acute on Chronic Sigmoid Colon Diverticulitis, Distal Small Bowel Enteritis CT Abd/Pel noted She has remained afebrile and her WBC has normalized General Surgery on board Cont on IV Ertapenem for now given extensive Hx of allergies to Abx Diet advanced to Low Residue We will cont to monitor the patient Hx of rheumatoid arthritis On Humira as outpatient Plaquenil on hold 2/ acute infection Hypertension, stable Continue lisinopril Seasonal allergies Flonase when necessary GERD Continue Protonix DVT prophylaxis Lovenox subcutaneous Disposition--Anticipate D/C in the next 24 hrs pending continued clinical improvement. VS, I&O, 24H, Fishbone Vital Signs/I&O Vital Signs Date Time Temp Pulse Resp B/P (MAP) Pulse Ox O2 Delivery O2 Flow Rate FiO2 04/28/18 10:00 97.8 60 22 162/78 (106) 99 04/25/18 18:15 Room Air I&O- Last 24 Hours up to 6 AM 04/28/18 06:00 Intake Total 2400 ml Output Total 1900 ml Balance 500 ml Laboratory Data 24H LABS Laboratory Tests 2 04/28/18 06:27: Nucleated Red Blood Cells % (auto) 0.0, Anion Gap 6L, Glomerular Filtration Rate > 60.0, Blood Urea Nitrogen 10, Creatinine 0.89, Sodium Level 141, Potassium Level 3.8, Chloride Level 109H, Carbon Dioxide Level 26, Calcium Level 8.4L, C- Reactive Protein, Quantitative 13.90H CBC/BMP Laboratory Tests 04/28/18 06:27 Red Blood Count 3.96 L, Mean Corpuscular Volume 87.9, Mean Corpuscular Hemoglobin 28.0, Mean Corpuscular Hemoglobin Concent 31.9 L, Red Cell Distribution Width 13.0, Calcium Level 8.4 L Microbiology Microbiology 04/25/18 Urine Culture - Final, Complete RADHA DELAROSA MD Apr 28, 2018 16:14
[2018-04-28 18:00] VITALS: BP 133/62
[2018-04-28 22:00] VITALS: BP 141/68
[2018-04-29 02:00] VITALS: BP 140/66
[2018-04-29 06:00] VITALS: BP 132/87
[2018-04-29] MEDS: PANTOPRAZOLE 40MG TAB (PROTONIX) PO SCH (06:23)
[2018-04-29 06:47] LABS: HEMATOCRIT 34.8 % (36.0-47.0); HEMOGLOBIN 11.4 g/dl (12.0-15.5); MEAN CORPUSCULAR HEMOGLOBIN 28.4 pg (27.0-33.0); MEAN CORPUSCULAR HGB CONC 32.8 g/dl (32.0-36.5); MEAN CORPUSCULAR VOLUME 86.8 fl (80.0-96.0); PLATELET COUNT, AUTOMATED 253 10^3/uL (150-450); RED BLOOD COUNT 4.01 10^6/uL (4.00-5.40); WHITE BLOOD COUNT 5.8 10^3/uL (4.0-10.0)
[2018-04-29 07:15] LABS: BLOOD UREA NITROGEN 9 MG/DL (7-18); C REACTIVE PROTEIN QUANTITATIV 7.77 MG/DL (0.00-0.30); CALCIUM LEVEL 8.9 MG/DL (8.8-10.2); CARBON DIOXIDE LEVEL 27 MEQ/L (21-32); CHLORIDE LEVEL 109 MEQ/L (98-107); CREATININE FOR GFR 0.87 MG/DL (0.55-1.30); GLOMERULAR FILTRATION RATE > 60.0 (>45); GLUCOSE, FASTING 98 MG/DL (70-100); POTASSIUM SERUM 4.2 MEQ/L (3.5-5.1); SODIUM LEVEL 143 MEQ/L (136-145)
[2018-04-29] MEDS: ERTAPENEM SODIUM 1 GM in NS MINI-BAG PLUS 50 ML IV SCH (09:09)
[2018-04-29] MEDS: SENOKOT S TAB PO SCH ×2 (09:09→21:15)
[2018-04-29] MEDS: MULTIVITAMINS/MINERALS THERAP 1 TAB PO SCH (09:09)
[2018-04-29] MEDS: ENOXAPARIN 40 MG/0.4 ML SYRINGE (J1650) SC SCH (09:09)
[2018-04-29] MEDS: LISINOPRIL 20 MG TAB PO SCH (09:09)
[2018-04-29 10:00] VITALS: BP 155/72
[2018-04-29 14:00] VITALS: BP 145/63
[2018-04-29] MEDS: metroNIDAZOLE 500 MG in APPROPRIATE DILUENT 1 EA IV SCH ×2 (14:35→21:15)
[2018-04-29 18:00] VITALS: BP_SYST 147; BP_SYST 195; BP_DIAS 87; BP_DIAS 95
[2018-04-29 22:00] VITALS: BP 164/80
--- NOTE | 2018-04-29 23:29 | IPNPDOC ---
Subjective Date Seen The patient was seen on 04/29/18. Subjective Chief Complaint/HPI right lower abdominal pain Events since last encounter abdominal pain has almost resolved only a little sore.No fever or chills, no diarrhea or constipation , no nausea or vomiting Objective Physical Examination General Exam: Positive: Alert, Cooperative, No Acute Distress ENT Exam: Positive: Atraumatic, Mucous membr. moist/pink Neck Exam: Negative: JVD Chest Exam: Positive: Clear to auscultation, Normal air movement Heart Exam: Positive: Rate Normal, Normal S1, Normal S2 Abdomen Exam: Positive: Soft, Tenderness (mild tenderness to deep palpation in the right lower quadrant area. No rebound tenderness, guarding, or rigidity noted.) Extremity Exam: Negative: Tenderness, Swelling Psych Exam: Positive: Oriented x 3 Assessment /Plan Assessment Acute on Chronic Sigmoid Colon Diverticulitis, Distal Small Bowel Enteritis CT Abd/Pel noted She has remained afebrile and her WBC has normalized General Surgery on board on IV Ertapenem for now given extensive Hx of allergies to Abx Diet advanced to Low Residue We will cont to monitor the patient Will try the patient on metronidazole as she does not even remember ever having a reaction to this. If pateint can tolerate metronidazole then will dc patient with cipro and flagyl to complete a 10 day course then follow up with surgery in 2 to 3 weeks. Hx of rheumatoid arthritis On Humira as outpatient Plaquenil on hold 2/2 acute infection Hypertension, stable Continue lisinopril Seasonal allergies Flonase when necessary GERD Continue Protonix DVT prophylaxis Lovenox subcutaneous Disposition--Anticipate D/C in the next 24 hrs pending continued clinical improvement. Plan/VTE VTE Prophylaxis Ordered?: Yes VS, I&O, 24H, Fishbone Vital Signs/I&O Vital Signs Date Time Temp Pulse Resp B/P (MAP) Pulse Ox O2 Delivery O2 Flow Rate FiO2 04/29/18 18:00 97.9 80 19 147/87 (107) 98 04/25/18 18:15 Room Air I&O- Last 24 Hours up to 6 AM 04/29/18 06:00 Intake Total 2040 ml Output Total 1350 ml Balance 690 ml Laboratory Data 24H LABS Laboratory Tests 2 04/29/18 06:30: Nucleated Red Blood Cells % (auto) 0.0, Anion Gap 7L, Glomerular Filtration Rate > 60.0, Blood Urea Nitrogen 9, Creatinine 0.87, Sodium Level 143, Potassium Leve l 4.2, Chloride Level 109H, Carbon Dioxide Level 27, Calcium Level 8.9, C- Reactive Protein, Quantitative 7.77H CBC/BMP Laboratory Tests 04/29/18 06:30 Red Blood Count 4.01, Mean Corpuscular Volume 86.8, Mean Corpuscular Hemoglobin 28.4, Mean Corpuscular Hemoglobin Concent 32.8, Red Cell Distribution Width 12.9, Calcium Level 8.9 Microbiology Microbiology 04/25/18 Urine Culture - Final, Complete RAY,GARCÍA MONTOYA Apr 29, 2018 23:26
[2018-04-30] MEDS: NAPROXEN 250 MG TAB PO PRN (00:43)
[2018-04-30 02:00] VITALS: BP 144/78
[2018-04-30 06:00] VITALS: BP 148/80
[2018-04-30] MEDS ORDERED: metroNIDAZOLE (FLAGYL) 500 MG TAB PO SCH (06:00)
[2018-04-30] MEDS ORDERED: CIPROFLOXACIN 500 MG TAB PO SCH (06:00)
[2018-04-30] MEDS: PANTOPRAZOLE 40MG TAB (PROTONIX) PO SCH (06:02)
[2018-04-30 06:53] LABS: HEMATOCRIT 35.1 % (36.0-47.0); HEMOGLOBIN 11.4 g/dl (12.0-15.5); MEAN CORPUSCULAR HEMOGLOBIN 28.7 pg (27.0-33.0); MEAN CORPUSCULAR HGB CONC 32.5 g/dl (32.0-36.5); MEAN CORPUSCULAR VOLUME 88.4 fl (80.0-96.0); PLATELET COUNT, AUTOMATED 258 10^3/uL (150-450); RED BLOOD COUNT 3.97 10^6/uL (4.00-5.40); WHITE BLOOD COUNT 5.9 10^3/uL (4.0-10.0)
[2018-04-30 07:27] LABS: BLOOD UREA NITROGEN 14 MG/DL (7-18); C REACTIVE PROTEIN QUANTITATIV 4.75 MG/DL (0.00-0.30); CALCIUM LEVEL 8.7 MG/DL (8.8-10.2); CARBON DIOXIDE LEVEL 29 MEQ/L (21-32); CHLORIDE LEVEL 108 MEQ/L (98-107); GLOMERULAR FILTRATION RATE > 60.0 (>45); GLUCOSE, FASTING 100 MG/DL (70-100); SODIUM LEVEL 141 MEQ/L (136-145)
[2018-04-30 08:22] VITALS: BP 148/80
[2018-04-30] MEDS: ENOXAPARIN 40 MG/0.4 ML SYRINGE (J1650) SC SCH (08:22)
[2018-04-30] MEDS: MULTIVITAMINS/MINERALS THERAP 1 TAB PO SCH (08:22)
[2018-04-30] MEDS: SENOKOT S TAB PO SCH (08:22)
[2018-04-30] MEDS: LISINOPRIL 20 MG TAB PO SCH (08:22)
[2018-04-30] MEDS ORDERED: CIPR-249 PO (09:25)
[2018-04-30] MEDS ORDERED: FLAG500T PO (09:25)
--- NOTE | 2018-04-30 09:56 | IPN ---
DATE: 04/30/2018 Patient is doing well. Still remains afebrile. Notices that her stools are starting to firm up nicely, but otherwise seems to be making some good progress from the GI standpoint. Her abdominal pain is almost completely resolved and she has still some minimal right lower quadrant tenderness, but otherwise no other significant guarding, rebound or peritoneal signs. No other GI complaints at this time. She is tolerating a low residue diet and tolerating by mouth medications. IMPRESSION/PLAN: Patient seems to be making some good progress. My recommendation at this time is to follow-up with her primary care in the next week or two and then follow-up with GI (Dr. Gonzales in [place] for a follow-up colonoscopy). She has a follow-up colonoscopy scheduled every 5 years and this is the time at which she will need the follow-up colonoscopy so she will contact the office if she does not get a referral from her primary. Discussion of low residue diet was discussed with the patient and encouraged her to increase to a high fiber diet after about a month.
== END 2018-04-30 11:50 | disposition home or self-care (01) | DRG 392 ==
LOC: M ED 06:18 → M ED INP 16:23 → M MS5PR 18:29
PROVIDERS: ADMIT Internal Medicine; ATTEND Internal Medicine Nephrology
DX: K57.92 Diverticulitis of intestine, part unspecified, without perforation or abscess without bleeding (principal); I10 Essential (primary) hypertension; M06.9 Rheumatoid arthritis, unspecified; K21.9 Gastro-esophageal reflux disease without esophagitis; Z79.899 Other long term (current) drug therapy; Z88.2 Allergy status to sulfonamides; Z88.8 Allergy status to other drugs, medicaments and biological substances; Z88.0 Allergy status to penicillin; K59.00 Constipation, unspecified

== ENCOUNTER 2018-06-25 22:45 | Inpatient (IN) | payer MEDICARE ==
[~2018-06-25] VITALS: Ht 165.1 cm; Wt 87.3 kg
[~2018-06-25 22:45] MED LIST changes: +CIPR-249 PO; +FLAG500T PO
[2018-06-25 23:31] LABS: BASO % 0.1 % (0.0-1.0); EOS # 0.1 10^3/uL (0.0-0.50); EOS % 0.2 % (0.0-3.0); HEMATOCRIT 40.9 % (36.0-47.0); HEMOGLOBIN 13.3 g/dl (12.0-15.5); LYMPH # 2.4 10^3/uL (1.5-4.5); LYMPH % 11.6 % (24.0-44.0); MEAN CORPUSCULAR HEMOGLOBIN 28.4 pg (27.0-33.0); MEAN CORPUSCULAR HGB CONC 32.5 g/dl (32.0-36.5); MEAN CORPUSCULAR VOLUME 87.2 fl (80.0-96.0); MONO # 1.3 10^3/uL (0.0-0.8); MONO % 6.6 % (0.0-5.0); NEUTROPHILS # 16.4 10^3/uL (1.8-7.7); PLATELET COUNT, AUTOMATED 288 10^3/uL (150-450); RED BLOOD COUNT 4.69 10^6/uL (4.00-5.40); WHITE BLOOD COUNT 20.3 10^3/uL (4.0-10.0)
[2018-06-25 23:56] LABS: ALBUMIN 3.5 GM/DL (3.2-5.2); BILIRUBIN,DIRECT 0.2 MG/DL (0.0-0.2); BILIRUBIN,TOTAL 0.9 MG/DL (0.2-1.0); CALCIUM LEVEL 9.1 MG/DL (8.8-10.2); CREATININE FOR GFR 1.41 MG/DL (0.55-1.30); GLOMERULAR FILTRATION RATE 39.6 (>45); POTASSIUM SERUM 4.4 MEQ/L (3.5-5.1); TOTAL PROTEIN 6.9 GM/DL (6.4-8.2)
[2018-06-26] VITALS (8 sets, daily range): BP systolic 123–136; BP diastolic 52–71
[2018-06-26] MEDS ORDERED: MORPHINE 10 MG/ML 1ML VIAL (J2270) IV ONE (00:15)
[2018-06-26] MEDS ORDERED: NS 1,000 ML IV ONE ×2 (00:15→01:45)
[2018-06-26] MEDS ORDERED: metroNIDAZOLE 750 MG in APPROPRIATE DILUENT 1 EA IV ONE (00:15)
[2018-06-26] MEDS ORDERED: CIPROFLOXACIN 400 MG in APPROPRIATE DILUENT 1 EA IV ONE (00:15)
[2018-06-26] MEDS ORDERED: METOCLOPRAMIDE INJ 10MG/2ML VIAL (J2765) IV ONE (00:15)
[2018-06-26] MEDS ORDERED: ISOVUE-370 76% 100ML VIAL (Q9967) As Ordered ONE (00:20)
[2018-06-26] MEDS ORDERED: diphenhydrAMINE INJ 50MG/ML VIAL (J1200) IV STA (00:52)
--- NOTE | 2018-06-26 01:36 | REPVR ---
EXAM: CT Abdomen and Pelvis With Contrast EXAM DATE/TIME: 06/26/2018 12:14 AM CLINICAL HISTORY: 67 years old, female; Abdominal pain; Localized; Lower; Patient HX: HX diverticulitis. ; Additional info: Divertic TECHNIQUE: Imaging protocol: Axial computed tomography images of the abdomen and pelvis with intravenous contrast. Coronal and sagittal reformatted images were created and reviewed. Radiation optimization: All CT scans at this facility use at least one of these dose optimization techniques: automated exposure control; mA and/or kV adjustment per patient size (includes targeted exams where dose is matched to clinical indication); or iterative reconstruction. Contrast material: ISO; Contrast volume: 100 ml; Contrast route: AC; COMPARISON: CT ABD/PEL W/IV ORAL CONTRAS 04/25/2018 11:41 AM FINDINGS: Mediastinum: Small hiatal hernia. ABDOMEN: Liver: Normal. No mass. Gallbladder and bile ducts: Normal. No calcified stones. No ductal dilation. Pancreas: Normal. No ductal dilation. Spleen: Normal. No splenomegaly. Adrenals: Normal. No mass. Kidneys and ureters: Normal. No hydronephrosis. Stomach and bowel: Mild thickening of small bowel loops adjacent to the inflamed sigmoid colon in the right lower quadrant. Moderate inflammation surrounding the sigmoid colon with multiple diverticula representing diverticulitis with perforation and free air. Appendix: No evidence of appendicitis. PELVIS: Bladder: Unremarkable as visualized. Reproductive: Unremarkable as visualized. ABDOMEN and PELVIS: Intraperitoneal space: Moderate free air. Small amount of free fluid in the pelvis. Bones/joints: Degenerative changes. Soft tissues: Unremarkable. Vasculature: Normal. No abdominal aortic aneurysm. Lymph nodes: Normal. No enlarged lymph nodes. IMPRESSION: Moderate inflammation surrounding the sigmoid colon with multiple diverticula representing diverticulitis with perforation and moderate free air. Mild thickening of small bowel loops adjacent to the inflamed sigmoid colon in the right lower quadrant. Findings most likely representing reactive enteritis. Small amount of free fluid in the pelvis. Electronically signed by: Skylar Galloway On 06/26/2018 01:35:52 AM
[2018-06-26] MEDS ORDERED: TYLE650T35 PO (02:11)
[2018-06-26] MEDS ORDERED: HYLAND'S LEG CRAMPS SL (02:11)
[2018-06-26] MEDS ORDERED: ICYCRE TOP (02:11)
[2018-06-26] MEDS ORDERED: METR-265 PO (02:12)
[2018-06-26] MEDS ORDERED: CIPR-249 PO (02:12)
[2018-06-26] MEDS ORDERED: HUMI40KI2 SC (02:15)
[2018-06-26] MEDS ORDERED: MIRA3350 PO (02:15)
--- NOTE | 2018-06-26 03:57 | HPEPDOC ---
General Surgery H&P Date of Admission June 26, 2018 Attending Physician: ALEXANDER FAYE MD History and Physical CHIEF COMPLAINT: Abdominal pain HISTORY OF PRESENT ILLNESS: Patient presented to the emergency room on 06/25/2018 approximately 11 AM complaints of sudden onset of right-sided abdominal pain, nausea and vomiting. She was previously admitted back on 04/25/2018 for acute diverticulitis. At times she was treated with IV antibiotics and short period of bowel rest with improvement of her symptoms. She reports feeling better after discharge and has completed her antibiotic course and is scheduled to have colonoscopy done by Dr. Gonzales on July. She felt constipated and has been taking MiraLAX. Last bowel movement was yesterday morning. She does not notice any fevers, chills, diarrhea. Last colonoscopy was in 2013 when he found diverticulosis and polyps. ALLERGIES: Please see below. HOME MEDICATIONS: Please see below. PAST MEDICAL HISTORY: 1. Hypertension 2. Rheumatoid arthritis. 3. History of left breast cancer status post left breast lumpectomy, radiation, chemotherapy 4. History of peptic ulcer disease 5. Asthma PAST SURGICAL HISTORY: 1. Left breast lumpectomy for breast cancer. 2. Colonoscopy in 2013 3. Tonsillectomy PERSONAL/SOCIAL HISTORY: [Denies smoking, alcohol use, or recreational drug use]. REVIEW OF SYSTEMS: GENERAL: [Denies chills, fatigue, fever, weight gain and weight loss]. HEENT: [Denies blurred vision and double vision. Denies ear symptoms. Denies hoarseness]. NECK: [Denies any neck pain]. CARDIOVASCULAR: [Denies chest pain and palpitations]. MUSCULOSKELETAL: [Denies arthralgias, back pain and thrombophlebitis]. Reports rheumatoid arthritis with pains and joints and shoulders elbows hips SKIN: [Denies rash]. NEUROLOGIC: [Denies headache, stroke and transient ischemic attack]. PSYCHIATRIC: [Denies anxiety and depression]. ENDOCRINE: [Denies thyroid disease]. HEMATOLOGY/ONCOLOGY: [Denies any bleeding or clotting disorder]. Patient on Humira for rheumatoid arthritis (last dose is this week) HEART: [Denies any chest pains, palpitations, paroxysmal dyspnea, orthopnea]. PULMONARY: [Denies chronic cough, dyspnea and wheezing]. Patient reports a history of mild asthma, acute bronchitis GASTROINTESTINAL: See HPI GENITOURINARY: [Denies dysuria, frequency, hematuria and nocturia]. ENDOCRINE: [Denies polydipsia, polyphagia, polyuria, heat or cold intolerance]. Patient reports she is considered prediabetic. She is not on any medications. INFECTIOUS: [Denies any recent upper respiratory tract infection, UTI, need for use of antibiotics]. NUTRITION: [Reports good appetite]. PHYSICAL EXAMINATION: VITAL SIGNS: Please see below. GENERAL APPEARANCE: [Patient seen at bedside, appears comfortable]. [Awake, alert, oriented]. HEENT: [Normocephalic, atraumatic. [place] palpebral conjunctivae. Anicteric sclerae. Lips moist]. CHEST: [No chest wall abnormalities. Normal respiratory motion/effort]. NECK: [Supple. No thyromegaly. No lymphadenopathies]. LUNGS: [Lung sounds are clear to auscultation bilaterally. No wheezing appreciated]. HEART: [No chest wall abnormalities. Heart rate and rhythm are regular with no murmurs]. ABDOMEN: [Abdomen is obese, soft, slightly rounded. No hepatosplenomegaly. No umbilical or groin herniations, nondistended. No noticeable rebound or guarding. No grimacing with palpation. No rebound tenderness. No masses appreciated]. SKIN: [Warm, moist]. EXTREMITIES: [Extremities have no deformities. No edema identified]. NEUROLOGICAL: . ANCILLARIES: . LABORATORY DATA: Please see below. MICROBIOLOGY: Please see below. IMAGING: CT abdomen and pelvis Moderate inflammation surrounding the sigmoid colon with multiple diverticula representing diverticulitis with perforation and moderate free air. Mild thickening of small bowel loops adjacent to the inflamed sigmoid colon in the right lower quadrant. Findings most likely representing reactive enteritis. Small amount of free fluid in the pelvis. IMPRESSION AND PLAN: Perforated diverticulitis Patient is found to have moderate inflammation related to her diverticulitis with pockets of free intraperitoneal air above the liver and scattered within the abdomen. Her examination consistent with localized peritonitis with some extension to the mid periumbilical area with mild guarding. She has leukocytosis of 20,000. She is hemodynamically stable. I advised her of the diagnosis and I reviewed the images of the CT with her including of the CT done on 04/25/2018 and advised her of the need for surgery for the perforation. At first she was reluctant to agree to surgery and was hoping for a second opinion to the point that she initially decided to wait until Thursday for second opinion with . goes less than home she is familiar with an comfortable with for second opinion. I discussed the ramifications of that decision whether and likewise d iscussed other options including transferred to another institution for second opinion with another surgeon in a more urgent matter. After discussion with her french binder, she has decided to proceed with surgery but is. We will proceed with exploratory laparotomy. I certainly need to resect the inflamed portion of the colon and leave her with a colostomy until the inflammation resolves before hooking her back up together. This would usually take a few months. I discussed with the patient the details of the proposed procedure, the benefits of performing the procedure, the most common risks on doing the procedure. This may include risks for bleeding, infection, abscess formation, injury to nearby structures including bowel injury, ureter injury, vascular injury, subsequent hernia formation. I have given her a chance to ask questions, voice out concerns. Patient has agreed to proceed She has received ciprofloxacin and metronidazole from the emergency room. This should be adequate perioperative antibiotics. She reports allergy to penicillin though allergy is stated as "ulcerated throat". I will need to verify this with her and whether we can expand or use penicillin later on if we need to. She is on Humira and her last dose was this week. She is not on steroids. So this is anti-inflammatory and may have effects on her healing as well as on her resistance to infection. I also suspect that this may have impacted the severity of her diverticulitis. Vital Signs Vital Signs Date Time Temp Pulse Resp B/P (MAP) Pulse Ox O2 Delivery O2 Flow Rate FiO2 06/26/18 02:16 67 20 142/72 (95) 100 Room Air 06/26/18 01:07 97.8 I&Os I&O- Last 24 Hours up to 6 AM 06/26/18 06:00 Intake Total 2350 ml Balance 2350 ml Laboratory Data Labs 24H Laboratory Tests 2 06/25/18 23:26: Immature Granulocyte % (Auto) 0.5, White Blood Count 20.3H, Red Blood Count 4.69, Hemoglobin 13.3, Hematocrit 40.9, Mean Corpuscular Volume 87.2, Mean Corpuscular Hemoglobin 28.4, Mean Corpuscular Hemoglobin Concent 32.5, Red Cell Distribution Width 13.2, Platelet Count 288, Neutrophils (%) (Auto) 81.0H, Lymphocytes (%) (Auto) 11.6L, Monocytes (%) (Auto) 6.6H, Eosinophils (%) (Auto) 0.2, Basophils (%) (Auto) 0.1, Neutrophils # (Auto) 16.4H, Lymphocytes # (Auto) 2.4, Monocytes # (Auto) 1.3H, Eosinophils # (Auto) 0.1, Basophils # (Auto) 0.0, Nucleated Red Blood Cells % (auto) 0.0, Anion Gap 10, Glomerular Filtration Rate 39.6L, Calcium Level 9.1, Aspartate Amino Transf (AST/SGOT) 19, Alanine Aminotransferase (ALT/SGPT) 26, Alkaline Phosphatase 90, Total Bilirubin 0.9, Direct Bilirubin 0.2, Total Protein 6.9, Albumin 3.5, Albumin/Globulin Ratio 1.03, Lipase 148 06/25/18 23:53: Lactic Acid Level 1.3 CBC/BMP Laboratory Tests 06/25/18 23:26 Red Blood Count 4.69, Mean Corpuscular Volume 87.2, Mean Corpuscular Hemoglobin 28.4, Mean Corpuscular Hemoglobin Concent 32.5, Red Cell Distribution Width 13.2, Neutrophils (%) (Auto) 81.0 H, Lymphocytes (%) (Auto) 11.6 L, Monocytes (%) (Auto) 6.6 H, Eosinophils (%) (Auto) 0.2, Basophils (%) (Auto) 0.1, Neutrophils # (Auto) 16.4 H, Lymphocytes # (Auto) 2.4, Monocytes # (Auto) 1.3 H, Eosinophils # (Auto) 0.1, Basophils # (Auto) 0.0 Home Medications Scheduled Adalimumab (Humira Pen) 40 Mg/0.8 Ml [email or web address], 40 MG SC Q2WK, (Reported) Calcium Carbonate/Vitamin D3 (Calcium 500-Vit D3 400 Tablet) 1 Tab Tab, 1 TAB PO QPM, (Reported) Cholecalciferol (Vitamin D3) (Vitamin D3) 2,000 Unit Tab, 2,000 UNIT PO DAILY, (Reported) Ciprofloxacin HCl (Cipro) 500 Mg Tablet, 500 MG PO BID, (Reported) Esomeprazole Magnesium (Esomeprazole Magnesium Dr) 40 Mg Cap, 40 MG PO DAILY, (Reported) Hydroxychloroquine Sulfate (Hydroxychloroquine Sulfate) 200 Mg Tab, 200 MG PO BID, (Reported) Lisinopril (Lisinopril) 20 Mg Tab, 20 MG PO DAILY, (Reported) Metronidazole (Metronidazole) 500 Mg Tablet, 500 MG PO TID, (Reported) Multivitamins (Thera M Plus Tablet) 1 Tab Tab, 1 TAB PO DAILY, (Reported) Polyethylene Glycol 3350 (Miralax) 119 Gm Powder, 17 GM PO QHS, (Reported) Scheduled PRN Acetaminophen (Tylenol Arthritis) 650 Mg Tablet.er, 1,300 MG PO QHS PRN for PAIN, (Reported) Fluticasone Propionate (Fluticasone Propionate) 50 Mcg/Act Spr, 2 SPRAY NARES DAILY PRN for NASAL CONGESTION, (Reported) Methyl Salicylate/Menthol (Icy Hot Cream) 35.4 Gm Cream..g., 1 APLCT TOP QHS PRN for PAIN, (Reported) Naproxen (Naproxen) 500 Mg Tab, 500 MG PO BID PRN for PAIN, (Reported) [Meli's Leg Cramps] , 2 TAB SL Q4H PRN for CRAMPS, (Reported) Allergies Coded Allergies: Penicillins (Verified Allergy, Severe, ULCERATED THROAT, 06/26/18) Sulfa (Sulfonamide Antibiotics) (Verified Allergy, Intermediate, NAUSEA/ VOMITING, 06/26/18) bacitracin (Verified Allergy, Intermediate, RASH, 06/25/18) celecoxib (Verified Allergy, Intermediate, RASH, 06/25/18) codeine (Verified Allergy, Intermediate, NAUSEA/VOMITING, 06/26/18) doxycycline (Verified Allergy, Intermediate, VOMITING, 06/26/18) neomycin (Verified Allergy, Intermediate, RASH, 06/25/18) polymyxin B (Verified Allergy, Intermediate, RASH , 06/25/18) ramipril (Verified Allergy, Intermediate, RASH, 06/26/18) metronidazole (Verified Allergy, Unknown, UNKNOWN , 06/25/18) PT DOES NOT RECALL THIS ALLERGY A-FIB/CHADSVASC A-FIB History Current/History of A-Fib/PAF?: No Current Oral Anticoagulant The: No ALEXANDER FAYE MD June 26, 2018 03:57
[2018-06-26] MEDS ORDERED: fentaNYL 100 MCG/2 ML INJECTION (J3010) As Ordered ONE (04:09)
[2018-06-26] MEDS ORDERED: LIDOCAINE 2% INJ 100 MG/5 ML SDV (FOR ANES.) As Ordered ONE (04:09)
[2018-06-26] MEDS ORDERED: PROPOFOL 200 MG/20 ML VIAL As Ordered ONE (04:09)
[2018-06-26] MEDS ORDERED: ROCURONIUM BROMIDE 50 MG/5 ML VIAL As Ordered ONE ×2 (04:09→04:36)
[2018-06-26] MEDS ORDERED: MIDAZOLAM INJ 2 MG/2 ML VIAL (J2250) As Ordered ONE (04:10)
[2018-06-26] MEDS ORDERED: PHENYLephrine HCL 500 MCG/5 ML (100MCG/ML) SYRINGE (J2370) As Ordered ONE ×2 (04:26→05:08)
[2018-06-26] MEDS ORDERED: ePHEDrine SULFATE 25 MG/5 ML(5MG/ML) SYRINGE As Ordered ONE (04:26)
[2018-06-26] MEDS ORDERED: dexameTHASONE 4 MG/ML 1ML VIAL (J1100) As Ordered ONE (04:47)
[2018-06-26] MEDS ORDERED: HYDROmorphone HCL 2 MG/ML 1ML VIAL (J1170) As Ordered ONE (04:51)
[2018-06-26] MEDS ORDERED: ONDANSETRON 4MG/2ML VIAL (J2405) As Ordered ONE (04:53)
[2018-06-26] MEDS ORDERED: NEOSTIGMINE 10 MG/10 ML VIAL (J2710) As Ordered ONE (06:21)
[2018-06-26] MEDS ORDERED: GLYCOPYRROLATE INJ 0.2 MG/ML 2 ML VIAL As Ordered ONE (06:21)
[2018-06-26] MEDS ORDERED: FLUTICASONE PROP 0.05% NASAL SPRAY 16 GM (FLONASE) NARES PRN (07:15)
[2018-06-26] MEDS ORDERED: MORPHINE 1MG/ML IN 0.9% NACL 100ML IV BAG As Ordered ONE (07:18)
[2018-06-26] MEDS ORDERED: NS 1,000 ML IV SCH (07:22)
[2018-06-26] MEDS ORDERED: NALBUPHINE HCL 10 MG/ML AMP (J2300) IV PRN (07:30)
[2018-06-26] MEDS ORDERED: diphenhydrAMINE INJ 50MG/ML VIAL (J1200) IV PRN (07:30)
[2018-06-26] MEDS ORDERED: MORPHINE 1MG/ML IN 0.9% NACL 100ML IV BAG IV PRN (07:30)
[2018-06-26] MEDS ORDERED: EPIDURAL/PCA KEYS XX PRN (07:30)
[2018-06-26] MEDS ORDERED: NALOXONE INJ 0.4 MG/1 ML VIAL (J2310) IV PRN (07:30)
[2018-06-26] MEDS ORDERED: KETOROLAC 30 MG/ML VIAL (J1885) As Ordered ONE (07:56)
[2018-06-26] MEDS: KETOROLAC 30 MG/ML VIAL (J1885) IV PRN (08:00)
[2018-06-26] MEDS ORDERED: LR 1,000 ML IV SCH (08:15)
[2018-06-26] MEDS ORDERED: PERCOCET 5MG/325MG TAB PO PRN (08:15)
[2018-06-26] MEDS ORDERED: MORPHINE 10 MG/ML 1ML VIAL (J2270) IV PRN (08:15)
[2018-06-26] MEDS ORDERED: fentaNYL 100 MCG/2 ML INJECTION (J3010) IV PRN (08:15)
[2018-06-26] MEDS ORDERED: ONDANSETRON 4MG/2ML VIAL (J2405) IV PRN (08:15)
[2018-06-26] MEDS: ENOXAPARIN 40 MG/0.4 ML SYRINGE (J1650) SC SCH (10:34)
[2018-06-26] MEDS: PANTOPRAZOLE 40MG INJ (PROTONIX) (C9113) IV SCH (10:34)
[2018-06-26] MEDS: ALVIMOPAN 12 MG CAPSULE (ENTEREG) PO SCH ×2 (10:35→21:15)
[2018-06-26] MEDS: HYDROXYCHLOROQUINE 200 MG TAB PO SCH ×2 (10:35→21:15)
[2018-06-26] MEDS: SENOKOT S TAB PO SCH ×2 (10:35→21:16)
[2018-06-26] MEDS: LISINOPRIL 20 MG TAB PO SCH (10:36)
[2018-06-26] MEDS: metroNIDAZOLE 500 MG in APPROPRIATE DILUENT 1 EA IV SCH ×2 (10:37→18:15)
[2018-06-26] MEDS: LR 1,000 ML IV SCH ×2 (10:42→18:18)
[2018-06-26] MEDS: CIPROFLOXACIN 400 MG in APPROPRIATE DILUENT 1 EA IV SCH (12:23)
--- NOTE | 2018-06-26 17:11 | ECGEPIP ---
Stationary ECG Study [facility] - ED Test Date: 2018-06-26 Pat Name: TANMAY DAVENPORT Department: Room: - Gender: F Belly Dancer: jose miguel : 1950 Requested By: WILLIS YANG Order Number: [id number] Reading MD: Rubén Pereira Measurements Intervals [place] Rate: 76 P: 28 HI: 144 QRS: -32 QRSD: 111 T: 12 QT: 395 QTc: 446 Interpretive Statements SINUS RHYTHM MARKED LEFT AXIS DEVIATION VOLTAGE CRITERIA FOR LVH POSSIBLE LATERAL MYOCARDIAL INFARCTION, PROBABLY OLD SIMILAR TO 09/28/15 Electronically Signed On 06-26-2018 17:10:37 EDT by Rubén Pereira
[2018-06-27] MEDS: CIPROFLOXACIN 400 MG in APPROPRIATE DILUENT 1 EA IV SCH ×2 (00:57→13:01)
[2018-06-27 02:00] VITALS: BP 120/55
[2018-06-27] MEDS: metroNIDAZOLE 500 MG in APPROPRIATE DILUENT 1 EA IV SCH ×3 (02:00→17:59)
[2018-06-27 06:00] VITALS: BP 114/58
[2018-06-27] MEDS: LR 1,000 ML IV SCH ×4 (06:00→23:13)
[2018-06-27 06:33] LABS: BASO % 0.2 % (0.0-1.0); EOS % 0.1 % (0.0-3.0); HEMATOCRIT 31.2 % (36.0-47.0); LYMPH # 1.8 10^3/uL (1.5-4.5); LYMPH % 10.4 % (24.0-44.0); MEAN CORPUSCULAR HEMOGLOBIN 28.9 pg (27.0-33.0); MEAN CORPUSCULAR HGB CONC 32.7 g/dl (32.0-36.5); MEAN CORPUSCULAR VOLUME 88.4 fl (80.0-96.0); MONO # 1.3 10^3/uL (0.0-0.8); MONO % 7.1 % (0.0-5.0); NEUTROPHILS # 14.4 10^3/uL (1.8-7.7); NEUTROPHILS % 81.6 % (36.0-66.0); PLATELET COUNT, AUTOMATED 208 10^3/uL (150-450); RED BLOOD COUNT 3.53 10^6/uL (4.00-5.40); WHITE BLOOD COUNT 17.6 10^3/uL (4.0-10.0)
[2018-06-27 06:44] LABS: HEMOGLOBIN 10.2 g/dl (12.0-15.5)
[2018-06-27 06:58] LABS: CALCIUM LEVEL 8.2 MG/DL (8.8-10.2); CREATININE FOR GFR 1.08 MG/DL (0.55-1.30); GLOMERULAR FILTRATION RATE 53.9 (>45); POTASSIUM SERUM 4.3 MEQ/L (3.5-5.1)
--- NOTE | 2018-06-27 07:13 | ROOPDOC ---
[facility] Report Of Operation Report of Operation DATE OF PROCEDURE: 06/26/18 PREPROCEDURE DIAGNOSES: perforated diverticulitis. POSTPROCEDURE DIAGNOSES: perorated diverticulitis with abscess. PROCEDURE: Exploratory Laparotomy, sigmoid colon resection, Ciro's pouch, end colostomy. SURGEON: Tyler Bain MD ANESTHESIA: General Anesthesia. ESTIMATED BLOOD LOSS: Approximately 50 mL. COMPLICATIONS: none. REMARKS: inflamed portion of sigmoid colon with focal perforation and abscess around it. Secondary inflammation of a loop of small bowel attached to the sigmoid colon. DRAIN: 10 flat CHANDLER drain left in the pelvis DESCRIPTION OF PROCEDURE: Patient was given a dose of Ancef 2 g IV for prophylactic antibiotic. She is brought to the operating room, placed supine on the table. Sequential Compression boots placed on both lower extremities for DVT prophylaxis. A Burgess catheter placed for urine output monitoring. Her abdomen was then prepped and draped widely in usual sterile fashion.We paused for a surgical timeout using both pre-incision safety checklist to verify correct patient, procedure site and additional clinical information prior to beginning the procedure I marked the abdominal wall landmarks and pre-marked possible areas of colostomy placement on both left and right sides. Immediately lower midline incision and entered the abdomen. A [place] self-retaining retractor was placed for adequate exposure. There was minimal ascites on entering the abdomen. The small bowel seems to be tethered to the inflamed portion of sigmoid colon. A portion of omentum likewise was tethered to the area of the inflammation. There was hardening involved at the portion of the mid to distal sigmoid colon. As I palpate and try to free up both omentum and small bowel incontinent into a pocket of abscess with drainage of purulent material. Cultures were obtained. The omentum were lysed away from the area of inflammation and tucked over the patient's upper quadrant area. The small bowel likewise was lysed with sharp dissection using Metzenbaum scissors. Initial inspection shows some fibrin covering the secondary same bowel but no gross perforation None test. This was tucked away over the patient's upper quadrant. Passing a portion of the sigmoid colon the rectum seems to be soft. She has normal-sized uterus tube and ovaries. Secondary inflammation in the peritoneum overlying surface over the right side of the pelvis. The lateral peritoneal reflection sigmoid colon as well as the descending colon was opened up along the line of [place]. He chose an area at the proximal sigmoid colon area, early descending colon which appears healthy enough. The colon was transected with a 75 mm stapler with a green load. With this as a starting area the mesentery was divided. There was a area over the lateral sidewall that was adhered slightly hardened probably from chronic diverticulitis to I carefully worked around 40 as this was close to the course of the ureter. I stayed close to the mesentery of the sigmoid colon. Freeing up this area I was able to come through to the mesentery laterally to beyond the area of the inflamed portion of sigmoid colon. In a similar fashion the right peritoneal reflection was opened up with the harmonic scalpel to allow for posterior dissection of the mesentery sigmoid colon beyond the area of the inflammation. The inflamed area stretches to the distal sigmoid colon and minimally at the upper rectum. He chose an area at the rectum were inflammation is minimal and trimmed the mesentery circumferentially. The rectum was then transected using a contour stapler. The sigmoid colon specimen was passed off. The rectal stump was reinforced with a running suture of 2-0 Prolene right left the ends long to help in identification later on. The pelvis was irrigated and checked for hemostasis likewise for injury. The left ureter was identified intact. The upper quadrants were likewise irrigated until we had clear returns. I placed Tisseel glue to the staple line of the rectum as well as the mesentery. I then worked on the descending colon freeing this up and straightened this for colostomy placement. The lateral attachments of the sigmoid colon was released likewise the medial peritoneal reflection opened up to straight out the remains of the sigmoid colon and descending colon. I chose a previously marked area on the left side just above the umbilicus in the paramedian area for site of the colostomy. The disc of skin was opened up and removed together with the underlying subcutaneous tissue. The fascia was opened up and the rectus muscles bluntly divided and a 2 fingerbreadth-sized fascial defect was formed to accomm odate the colostomy. I placed a 10 flat CHANDLER drain through the right side of the abdominal wall and coursing close to the rectal stump in the pelvis for postoperative monitoring. We changed gloves and started closing her fascia using double looped 1 PDS. The subcutaneous tissue was irrigated and checked for hemostasis and closed with jennyfer. The colostomy was then matured in the appropriate fashion with 3-0 Vicryl. The colostomy appliance was set and sterile gauze dressings placed on the abdominal incision for wound coverage. Patient remained hemodynamically stable throughout the procedure. She was promptly awakened, extubated and brought to the recovery room stable. Counts of sponges and instruments were verified correct. TYLER BAIN MD June 27, 2018 07:13
[2018-06-27] MEDS: PANTOPRAZOLE 40MG INJ (PROTONIX) (C9113) IV SCH (09:31)
[2018-06-27] MEDS: SENOKOT S TAB PO SCH ×2 (09:32→20:29)
[2018-06-27] MEDS: ALVIMOPAN 12 MG CAPSULE (ENTEREG) PO SCH ×2 (09:32→20:29)
[2018-06-27] MEDS: HYDROXYCHLOROQUINE 200 MG TAB PO SCH ×2 (09:32→20:29)
[2018-06-27] MEDS: ENOXAPARIN 40 MG/0.4 ML SYRINGE (J1650) SC SCH (09:32)
[2018-06-27] MEDS: LISINOPRIL 20 MG TAB PO SCH (09:32)
[2018-06-27 10:00] VITALS: BP 119/57
--- NOTE | 2018-06-27 12:33 | IPNPDOC ---
Subjective General Date/Time Seen The patient was seen on 06/27/18 at 12:32. Subject Chief Complaint/History The patient is a 67-year-old female admitted with a reason for visit of Perforated Acute Diverticulitis. Patient reports relatively comfortable postoperatively. Denies nausea, vomiting. She has mostly stayed in bed yesterday. Afebrile. Nurse reports no issues overnight. 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 Current Medications Current Medications Alvimopan (Entereg) 12 mg BID PO Last administered on 06/27/18at 09:32; Start 06/26/18 at 09:00; Stop 07/01/18 at 08:59 Ciprofloxacin 400 mg/IV Miscellaneous Supplies 200 ml @ 200 mls/hr Q12H IV Las t administered on 06/27/18at 00:57; Start 06/26/18 at 13:00 Diphenhydramine HCl (Benadryl) 12.5 mg Q4HP PRN IV ITCHING; Start 06/26/18 at 07:30 Diphenhydramine HCl (Benadryl) 25 mg STAT STAT IV Last administered on 06/26/18at 01:08; Start 06/26/18 at 00:52; Stop 06/26/18 at 00:53; Status DC Enoxaparin Sodium (Lovenox) 40 mg DAILY SC Last administered on 06/27/18at 09:32; Start 06/26/18 at 09:00 Fentanyl Citrate (Sublimaze) 25 mcg Q5MP PRN IV MODERATE PAIN (PS 4-7); Start 06/26/18 at 08:15; Stop 06/26/18 at 09:15; Status DC Fluticasone Propionate (Flonase 0.05% Nasal [place]) 2 spray DAILY PRN NARES NASAL CONGESTION; Start 06/26/18 at 07:15 Home Med (Med Rec Complete!) ASDIRECTED XX ; Start 06/26/18 at 02:30; Stop 06/26/18 at 02:49; Status DC Hydroxychloroquine Sulfate (Plaquenil) 200 mg BID PO Last administered on 06/27/18at 09:32; Start 06/26/18 at 09:00 Ketorolac Tromethamine (ToRADol) 30 mg Q6HP PRN IV MILD/MODERATE PAIN (PS 1-7) Last administered on 06/26/18at 08:00; Start 06/26/18 at 07:15; Stop 07/01/18 at 07:14 Lactated Ringer's 1,000 ml @ 80 mls/hr [id number] IV ; Start 06/26/18 at 08:15; Stop 06/26/18 at 09:15; Status DC Lactated Ringer's 1,000 ml @ 125 mls/hr Q8H IV Last administered on 06/27/18at 09:33; Start 06/26/18 at 07:13 Lisinopril (Prinivil) 20 mg DAILY PO Last administered on 06/27/18at 09:32; Start 06/26/18 at 09:00 Metronidazole 500 mg/IV Miscellaneous Supplies 100 ml @ 100 mls/hr Q8H IV Last administered on 06/27/18at 09:31; Start 06/26/18 at 10:00 Morphine Sulfate (Morphine Sulfate In 0.9%Nacl Iv Bag) Concentration 1 mg/ml ASDIRECTED PRN IV SEE LABEL COMMENTS; Start 06/26/18 at 07:30 Morphine Sulfate (Morphine Sulfate Inj) 2 mg Q5M PRN IV MODERATE/SEVERE PAIN (PS 5-10); Start 06/26/18 at 08:15; Stop 06/26/18 at 09:15; Status DC Nalbuphine HCl (Nubain) 2.5 mg Q6HP PRN IV PRURITIS; Start 06/26/18 at 07:30; Stop 07/03/18 at 07:29 Naloxone HCl (Narcan) 0.1 mg Q5MP PRN IV SEE LABEL COMMENTS; Start 06/26/18 at 07:30 Non-Formulary Medication (Epidural/AUTOMOTIVE TIRE TECHNICIAN [place]) USE THIS ENTRY TO VEND ... Q1M PRN XX SEE LABEL COMMENTS; Start 06/26/18 at 07:30 Ondansetron HCl (ZOFRAN INJection) 4 mg Q4HP PRN IV NAUSEA OR VOMITING; Start 06/26/18 at 08:15; Stop 06/26/18 at 09:15; Status DC Ondansetron HCl (ZOFRAN INJection) 4 mg Q6HP PRN IV NAUSEA OR VOMITING; Start 06/26/18 at 07:15 Oxycodone/ Acetaminophen (Percocet 5mg/ 325mg Tablet) 1 tab ASDIRECTED PRN PO MILD/MODERATE PAIN (PS 1-7); Start 06/26/18 at 08:15; Stop 06/26/18 at 09:15; Status DC Pantoprazole Sodium (Protonix) 40 mg DAILY IV Last administered on 06/27/18at 09:31; Start 06/26/18 at 09:00 Senna/Docusate Sodium (Senokot S) 1 tab BID PO Last administered on 06/27/18at 09:32; Start 06/26/18 at 09:00 Sodium Chloride 1,000 ml @ 15 mls/hr Q24H IV ; Start 06/26/18 at 07:22; Stop 06/26/18 at 07:31; Status DC Allergies Coded Allergies: Penicillins (Verified Allergy, Severe, ULCERATED THROAT, 06/26/18) bacitracin (Verified Allergy, Intermediate, RASH, 06/25/18) celecoxib (Verified Allergy, Intermediate, RASH - CAN TAKE IBUPROFEN AND NAPROXEN, 06/26/18) neomycin (Verified Allergy, Intermediate, RASH, 06/25/18) polymyxin B (Verified Allergy, Intermediate, RASH , 06/25/18) ramipril (Verified Allergy, Intermediate, RASH, 06/26/18) Sulfa (Sulfonamide Antibiotics) (Verified Adverse Reaction, Mild, NAUSEA/ VOMITING, 06/26/18) codeine (Verified Adverse Reaction, Mild, NAUSEA/VOMITING, 06/26/18) doxycycline (Verified Adverse Reaction, Mild, VOMITING, 06/26/18) Objective Physical Examination Examination GENERAL APPEARANCE:comfortable. SKIN: Warm and moist. HEENT: Normocephalic, atraumatic. [place] palpebral conjunctiva, anicteric sclerae. Lips and mucosa appear moist. NECK: Supple, no thyromegaly. No obvious jugular venous distention. LUNGS: Clear to auscultation bilaterally. No wheezing appreciated. HEART: No chest wall abnormalities. Regular rate and rhythm with no murmurs appreciated. ABDOMEN: Abdomen is mild obese, soft, minimally distended, hypoactive bowel sounds. lower midline incision with dressings intact, mild staining. [place] in place no gross drainage, erythema. Left lower quadrant ostomy mildly swollen, no air or stool yet in bag.. EXTREMITIES: no edema. Vital Signs Vital Signs Date Time Temp Pulse Resp B/P (MAP) Pulse Ox O2 Delivery O2 Flow Rate FiO2 5/12/19 10:00 98.2 77 13 119/57 (77) 98 2.0 06/26/18 03:44 Room Air I&Os I&O- Last 24 Hours up to 6 AM 06/27/18 06:00 Intake Total 2705 ml Output Total 2020 ml Balance 685 ml Laboratory Data Labs 24H Laboratory Tests 2 06/27/18 05:59: Immature Granulocyte % (Auto) 0.6, White Blood Count 17.6H, Red Blood Count 3.53L, Hemoglobin 10.2#L, Hematocrit 31.2L, Mean Corpuscular Volume 88.4, Mean Corpuscular Hemoglobin 28.9, Mean Corpuscular Hemoglobin Concent 32.7, Red Cell Distribution Width 14.0, Platelet Count 208, Neutrophils (%) (Auto) 81.6H, Lymphocytes (%) (Auto) 10.4L, Monocytes (%) (Auto) 7.1H, Eosinophils (%) (Auto) 0.1, Basophils (%) (Auto) 0.2, Neutrophils # (Auto) 14.4H, Lymphocytes # (Auto) 1.8, Monocytes # (Auto) 1.3H, Eosinophils # (Auto) 0.0, Basophils # (Auto) 0.0, Nucleated Red Blood Cells % (auto) 0.0, Anion Gap 8, Glomerular Filtration Rate 53.9, Blood Urea Nitrogen 21#H, Creatinine 1.08, Sodium Level 138, Potassium Level 4.3, Chloride Level 108H, Carbon Dioxide Level 22, Calcium Level 8.2L CBC/BMP Laboratory Tests 06/27/18 05:59 Red Blood Count 3.53 L, Mean Corpuscular Volume 88.4, Mean Corpuscular Hemoglobin 28.9, Mean Corpuscular Hemoglobin Concent 32.7, Red Cell Distribution Width 14.0, Neutrophils (%) (Auto) 81.6 H, Lymphocytes (%) (Auto) 10.4 L, Monocytes (%) (Auto) 7.1 H, Eosinophils (%) (Auto) 0.1, Basophils (%) (Auto) 0.2, Neutrophils # (Auto) 14.4 H, Lymphocytes # (Auto) 1.8, Monocytes # (Auto) 1.3 H, Eosinophils # (Auto) 0.0, Basophils # (Auto) 0.0, Calcium Level 8.2 L Microbiology Microbiology 06/26/18 Wound Culture, Received Pending 06/26/18 Anaerobic Culture, Received Pending Impression POD1 sigmoid colon resection, colostomy for acute diverticulitis doing well at this point. No signs of sepsis from the infection. She had questio ns about the surgery and aftermath that I answered. She was originally scheduled to have colonoscopy by Dr. Gonzales in July. I told her that with her surgery, this will be delayed until after she has recovered from the surgery and mainly will be for working her up for reversal of her colostomy. At the moment, she does not need a colonoscopy as the diseased portion of her colon has already been resected. 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
[2018-06-27 14:00] VITALS: BP 157/72
[2018-06-27] MEDS: ONDANSETRON 4MG/2ML VIAL (J2405) IV PRN ×2 (14:57→21:41)
[2018-06-27 18:00] VITALS: BP 168/72
[2018-06-27 22:00] VITALS: BP 150/70
[2018-06-28] MEDS: CIPROFLOXACIN 400 MG in APPROPRIATE DILUENT 1 EA IV SCH (01:23)
[2018-06-28 02:00] VITALS: BP 154/74
[2018-06-28] MEDS: metroNIDAZOLE 500 MG in APPROPRIATE DILUENT 1 EA IV SCH ×2 (02:00→08:36)
[2018-06-28] MEDS: ONDANSETRON 4MG/2ML VIAL (J2405) IV PRN ×3 (04:27→21:50)
[2018-06-28 06:00] VITALS: BP 157/84
[2018-06-28] MEDS: PROCHLORPERAZINE 10 MG/2 ML VIAL (J0780) IV PRN ×2 (06:11→14:35)
[2018-06-28 06:33] LABS: BASO % 0.1 % (0.0-1.0); EOS % 0.1 % (0.0-3.0); HEMATOCRIT 32.5 % (36.0-47.0); HEMOGLOBIN 10.6 g/dl (12.0-15.5); LYMPH # 0.7 10^3/uL (1.5-4.5); LYMPH % 4.8 % (24.0-44.0); MEAN CORPUSCULAR HEMOGLOBIN 29.2 pg (27.0-33.0); MEAN CORPUSCULAR HGB CONC 32.6 g/dl (32.0-36.5); MEAN CORPUSCULAR VOLUME 89.5 fl (80.0-96.0); MONO # 0.8 10^3/uL (0.0-0.8); MONO % 5.5 % (0.0-5.0); NEUTROPHILS # 12.7 10^3/uL (1.8-7.7); NEUTROPHILS % 89.1 % (36.0-66.0); PLATELET COUNT, AUTOMATED 187 10^3/uL (150-450); RED BLOOD COUNT 3.63 10^6/uL (4.00-5.40); WHITE BLOOD COUNT 14.3 10^3/uL (4.0-10.0)
[2018-06-28 06:55] LABS: BLOOD UREA NITROGEN 15 MG/DL (7-18); CALCIUM LEVEL 8.2 MG/DL (8.8-10.2); CARBON DIOXIDE LEVEL 24 MEQ/L (21-32); CHLORIDE LEVEL 105 MEQ/L (98-107); CREATININE FOR GFR 0.92 MG/DL (0.55-1.30); GLOMERULAR FILTRATION RATE > 60.0 (>45); GLUCOSE, FASTING 133 MG/DL (70-100); POTASSIUM SERUM 4.2 MEQ/L (3.5-5.1); SODIUM LEVEL 137 MEQ/L (136-145)
[2018-06-28] MEDS ORDERED: NORCO, ANEXSIA 5/325MG TABLET (HYDROcodone/ACETAMINOPHEN) PO PRN ×2 (08:30)
[2018-06-28] MEDS: HYDROXYCHLOROQUINE 200 MG TAB PO SCH ×2 (08:35→21:50)
[2018-06-28] MEDS: LISINOPRIL 20 MG TAB PO SCH (08:35)
[2018-06-28] MEDS: ALVIMOPAN 12 MG CAPSULE (ENTEREG) PO SCH ×2 (08:36→21:50)
[2018-06-28] MEDS: LR 1,000 ML IV SCH ×3 (08:36→17:43)
[2018-06-28] MEDS: ENOXAPARIN 40 MG/0.4 ML SYRINGE (J1650) SC SCH (08:36)
[2018-06-28] MEDS: SENOKOT S TAB PO SCH ×2 (08:36→21:50)
[2018-06-28] MEDS: PANTOPRAZOLE 40MG INJ (PROTONIX) (C9113) IV SCH (08:36)
[2018-06-28 10:00] VITALS: BP 156/74
[2018-06-28] MEDS: KETOROLAC 30 MG/ML VIAL (J1885) IV PRN ×2 (10:20→21:51)
--- NOTE | 2018-06-28 11:57 | IPNPDOC ---
Subjective General Date/Time Seen The patient was seen on 06/28/18 at 11:34. Subject Chief Complaint/History The patient is a 67-year-old female admitted with a reason for visit of Perforated Acute Diverticulitis. Patient reports lot of nausea, dizziness when she stands up overnight and this morning. She feels this may be from the morphine BILLING COORDINATOR. Her ostomy still is not functioning. She has been afebrile. Current Medications Current Medications Current Medications Acetaminophen/ Hydrocodone Bitart ([place], [place]nexsia 5/325) 1 tab Q4HP PRN PO MILD/MODERATE PAIN (PS 1-7); Start 06/28/18 at 08:30 Acetaminophen/ Hydrocodone Bitart ([place], [place]nexs[place] 5/325) 2 tab Q4HP PRN PO SEVERE PAIN (PS 8-10); Start 06/28/18 at 08:30 Alvimopan (Entereg) 12 mg BID PO Last administered on 06/28/18at 08:36; Start 06/26/18 at 09:00; Stop 07/01/18 at 08:59 Ciprofloxacin 400 mg/IV Miscellaneous Supplies 200 ml @ 200 mls/hr Q12H IV Last administered on 06/28/18at 01:23; Start 06/26/18 at 13:00 Diphenhydramine HCl (Benadryl) 12.5 mg Q4HP PRN IV ITCHING; Start 06/26/18 at 07:30; Stop 06/28/18 at 08:32; Status DC Diphenhydramine HCl (Benadryl) 25 mg STAT STAT IV Last administered on 06/26/18at 01:08; Start 06/26/18 at 00:52; Stop 06/26/18 at 00:53; Status DC Enoxaparin Sodium (Lovenox) 40 mg DAILY SC Last administered on 06/28/18at 08:36; Start 06/26/18 at 09:00 Fentanyl Citrate (Sublimaze) 25 mcg Q5MP PRN IV MODERATE PAIN (PS 4-7); Start 06/26/18 at 08:15; Stop 06/26/18 at 09:15; Status DC Fluticasone Propionate (Flonase 0.05% Nasal [place]) 2 spray DAILY PRN NARES NASAL CONGESTION; Start 06/26/18 at 07:15 Home Med (Med Rec Complete!) ASDIRECTED XX ; Start 06/26/18 at 02:30; Stop 06/26/18 at 02:49; Status DC Hydroxychloroquine Sulfate (Plaquenil) 200 mg BID PO Last administered on 06/28/18at 08:35; Start 06/26/18 at 09:00 Ketorolac Tromethamine (ToRADol) 30 mg Q6HP PRN IV MILD/MODERATE PAIN (PS 1-7) Last administered on 06/28/18at 10:20; Start 06/26/18 at 07:15; Stop 07/01/18 at 07:14 Lactated Ringer's 1,000 ml @ 80 mls/hr [id number] IV ; Start 06/26/18 at 08:15; Stop 06/26/18 at 09:15; Status DC Lactated Ringer's 1,000 ml @ 125 mls/hr Q8H IV Last administered on 06/28/18at 08:36; Start 06/26/18 at 07:13 Lisinopril (Prinivil) 20 mg DAILY PO Last administered on 06/28/18at 08:35; Start 06/26/18 at 09:00 Metronidazole 500 mg/IV Miscellaneous Supplies 100 ml @ 100 mls/hr Q8H IV Last administered on 06/28/18at 08:36; Start 06/26/18 at 10:00 Morphine Sulfate (Morphine Sulfate In 0.9%Nacl Iv Bag) Concentration 1 mg/ml ASDIRECTED PRN IV SEE LABEL COMMENTS; Start 06/26/18 at 07:30; Stop 06/28/18 at 08:32; Status DC Morphine Sulfate (Morphine Sulfate Inj) 2 mg Q5M PRN IV MODERATE/SEVERE PAIN (PS 5-10); Start 06/26/18 at 08:15; Stop 06/26/18 at 09:15; Status DC Nalbuphine HCl (Nubain) 2.5 mg Q6HP PRN IV PRURITIS; Start 06/26/18 at 07:30; Stop 06/28/18 at 08:32; Status DC Naloxone HCl (Narcan) 0.1 mg Q5MP PRN IV SEE LABEL COMMENTS; Start 06/26/18 at 07:30; Stop 06/28/18 at 08:32; Status DC Non-Formulary Medication (Epidural/BILLING COORDINATOR [place]) USE THIS ENTRY TO VEND ... Q1M PRN XX SEE LABEL COMMENTS; Start 06/26/18 at 07:30; Stop 06/28/18 at 08:32; Status DC Ondansetron HCl (ZOFRAN INJection) 4 mg Q4HP PRN IV NAUSEA OR VOMITING; Start 06/26/18 at 08:15; Stop 06/26/18 at 09:15; Status DC Ondansetron HCl (ZOFRAN INJection) 4 mg Q6HP PRN IV NAUSEA OR VOMITING Last administered on 06/28/18at 10:20; Start 06/26/18 at 07:15 Oxycodone/ Acetaminophen (Percocet 5mg/ 325mg Tablet) 1 tab ASDIRECTED PRN PO MILD/MODERATE PAIN (PS 1-7); Start 06/26/18 at 08:15; Stop 06/26/18 at 09:15; Status DC Pantoprazole Sodium (Protonix) 40 mg DAILY IV Last administered on 06/28/18at 08:36; Start 06/26/18 at 09:00 Prochlorperazine (Compazine) 10 mg Q6HP PRN IV VOMITING Last administered on 06/28/18at 06:11; Start 06/28/18 at 05:45 Senna/Docusate Sodium (Senokot S) 1 tab BID PO Last administered on 06/28/18at 08:36; Start 06/26/18 at 09:00 Sodium Chloride 1,000 ml @ 15 mls/hr Q24H IV ; Start 06/26/18 at 07:22; Stop 06/26/18 at 07:31; Status DC Allergies Coded Allergies: Penicillins (Verified Allergy, Severe, ULCERATED THROAT, 06/26/18) bacitracin (Verified Allergy, Intermediate, RASH, 06/25/18) celecoxib (Verified Allergy, Intermediate, RASH - CAN TAKE IBUPROFEN AND NAPROXEN, 06/26/18) neomycin (Verified Allergy, Intermediate, RASH, 06/25/18) polymyxin B (Verified Allergy, Intermediate, RASH , 06/25/18) ramipril (Verified Allergy, Intermediate, RASH, 06/26/18) Sulfa (Sulfonamide Antibiotics) (Verified Adverse Reaction, Mild, NAUSEA/VOMITING, 06/26/18) codeine (Verified Adverse Reaction, Mild, NAUSEA/VOMITING, 06/26/18) doxycycline (Verified Adverse Reaction, Mild, VOMITING, 06/26/18) Objective Physical Examination Examination GENERAL APPEARANCE: Mildly uncomfortable secondary to nausea.. SKIN: Warm and dry. HEENT: Mild pale palpebral conjunctiva, lips mildly dry. NECK: Supple, no thyromegaly. No obvious jugular venous distention. LUNGS: Clear to auscultation bilaterally. No wheezing appreciated. HEART: No chest wall abnormalities. Regular rate and rhythm with no murmurs appreciated. ABDOMEN: Abdomen is mild obese, soft, minimally distended. Lower midline incision with dressings intact, clean, dry minimal staining postop. Right-sided [place] drained with light pink serosanguineous fluid. Left-sided ostomy with mild swelling, no gross evidence of function yet. EXTREMITIES: No edema. Vital Signs Vital Signs Date Time Temp Pulse Resp B/P (MAP) Pulse Ox O2 Delivery O2 Flow Rate FiO2 06/28/18 10:00 98.5 94 16 156/74 (101) 97 06/27/18 14:00 2.0 06/26/18 03:44 Room Air I&Os I&O- Last 24 Hours up to 6 AM 06/28/18 06:00 Intake Total 1380 ml Output Total 3615 ml Balance -2235 ml Laboratory Data Labs 24H Laboratory Tests 2 06/28/18 06:15: Immature Granulocyte % (Auto) 0.4, White Blood Count 14.3H, Red Blood Count 3 .63L, Hemoglobin 10.6L, Hematocrit 32.5L, Mean Corpuscular Volume 89.5, Mean Corpuscular Hemoglobin 29.2, Mean Corpuscular Hemoglobin Concent 32.6, Red Cell Distribution Width 13.5, Platelet Count 187, Neutrophils (%) (Auto) 89.1H, Lymphocytes (%) (Auto) 4.8L, Monocytes (%) (Auto) 5.5H, Eosinophils (%) (Auto) 0.1, Basophils (%) (Auto) 0.1, Neutrophils # (Auto) 12.7H, Lymphocytes # (Auto) 0.7L, Monocytes # (Auto) 0.8, Eosinophils # (Auto) 0.0, Basophils # (Auto) 0.0, Nucleated Red Blood Cells % (auto) 0.0, Anion Gap 8, Glomerular Filtration Rate > 60.0, Blood Urea Nitrogen 15, Creatinine 0.92, Sodium Level 137, Potassium Level 4.2, Chloride Level 105, Carbon Dioxide Level 24, Calcium Level 8.2L CBC/BMP Laboratory Tests 06/28/18 06:15 Red Blood Count 3.63 L, Mean Corpuscular Volume 89.5, Mean Corpuscular Hemoglobin 29.2, Mean Corpuscular Hemoglobin Concent 32.6, Red Cell Distribution Width 13.5, Neutrophils (%) (Auto) 89.1 H, Lymphocytes (%) (Auto) 4.8 L, Monocytes (%) (Auto) 5.5 H, Eosinophils (%) (Auto) 0.1, Basophils (%) (Auto) 0.1, Neutrophils # (Auto) 12.7 H, Lymphocytes # (Auto) 0.7 L, Monocytes # (Auto) 0.8, Eosinophils # (Auto) 0.0, Basophils # (Auto) 0.0, Calcium Level 8.2 L Microbiology Microbiology 06/26/18 Wound Culture - Final, Resulted Escherichia Coli 06/26/18 Anaerobic Culture, Resulted Pending Impression POD2 sigmoid colon resection, colostomy for acute diverticulitis She is having problems with nausea overnight. I will discontinue the morphine BILLING COORDINATOR and see how she tolerates Toradol and [place] for her pain. I will also give her some antinausea medication to help her with this. Her colostomy is not showing any consistent function yet. Together with nausea, I'll keep her on clear liquids for now. PLAN: d/c [facility] continue iv antibiotics, await microbiology await pathology continue with clears - no ostomy output yet ambulate Plan / VTE VTE Prophylaxis Ordered?: Yes Plan / Urinary Catheter Urinary Catheter: D/C ALEXANDER Peñaloza MD June 28, 2018 11:57
[2018-06-28] MEDS: ERTAPENEM SODIUM 1 GM in NS MINI-BAG PLUS 50 ML IV SCH (13:02)
[2018-06-28 14:00] VITALS: BP 157/74
[2018-06-28 22:00] VITALS: BP 154/76
[2018-06-29] MEDS: LR 1,000 ML IV SCH ×4 (03:16→23:07)
[2018-06-29 06:00] VITALS: BP 134/74
[2018-06-29 06:16] LABS: BASO % 0.2 % (0.0-1.0); EOS # 0.2 10^3/uL (0.0-0.50); EOS % 1.8 % (0.0-3.0); HEMATOCRIT 29.1 % (36.0-47.0); HEMOGLOBIN 9.5 g/dl (12.0-15.5); LYMPH % 19.9 % (24.0-44.0); MEAN CORPUSCULAR HEMOGLOBIN 28.4 pg (27.0-33.0); MEAN CORPUSCULAR HGB CONC 32.6 g/dl (32.0-36.5); MEAN CORPUSCULAR VOLUME 87.1 fl (80.0-96.0); MONO # 0.8 10^3/uL (0.0-0.8); MONO % 7.6 % (0.0-5.0); NEUTROPHILS # 7.2 10^3/uL (1.8-7.7); NEUTROPHILS % 70.2 % (36.0-66.0); PLATELET COUNT, AUTOMATED 187 10^3/uL (150-450); RED BLOOD COUNT 3.34 10^6/uL (4.00-5.40); WHITE BLOOD COUNT 10.2 10^3/uL (4.0-10.0)
[2018-06-29 06:36] LABS: BLOOD UREA NITROGEN 20 MG/DL (7-18); CARBON DIOXIDE LEVEL 23 MEQ/L (21-32); CHLORIDE LEVEL 108 MEQ/L (98-107); CREATININE FOR GFR 0.88 MG/DL (0.55-1.30); GLOMERULAR FILTRATION RATE > 60.0 (>45); GLUCOSE, FASTING 79 MG/DL (70-100); POTASSIUM SERUM 3.7 MEQ/L (3.5-5.1); SODIUM LEVEL 139 MEQ/L (136-145)
[2018-06-29] MEDS: HYDROXYCHLOROQUINE 200 MG TAB PO SCH ×2 (09:00→19:58)
[2018-06-29] MEDS: LISINOPRIL 20 MG TAB PO SCH (09:19)
[2018-06-29] MEDS: PANTOPRAZOLE 40MG INJ (PROTONIX) (C9113) IV SCH (09:19)
[2018-06-29] MEDS: ENOXAPARIN 40 MG/0.4 ML SYRINGE (J1650) SC SCH (09:20)
[2018-06-29] MEDS: ALVIMOPAN 12 MG CAPSULE (ENTEREG) PO SCH ×2 (09:20→19:58)
[2018-06-29] MEDS: SENOKOT S TAB PO SCH ×2 (09:20→19:58)
[2018-06-29] MEDS: ERTAPENEM SODIUM 1 GM in NS MINI-BAG PLUS 50 ML IV SCH (13:04)
[2018-06-29] MEDS: KETOROLAC 30 MG/ML VIAL (J1885) IV PRN ×2 (15:18→23:07)
[2018-06-29] MEDS: ONDANSETRON 4MG/2ML VIAL (J2405) IV PRN ×2 (15:18→23:07)
--- NOTE | 2018-06-29 16:08 | IPNPDOC ---
Subjective General Date/Time Seen The patient was seen on 06/29/18 at 16:05. Subject Chief Complaint/History The patient is a 67-year-old female admitted with a reason for visit of Perforated Acute Diverticulitis. Patient continued to have nausea and vomiting up until last night. She reports she is feeling much better this morning. Her last vomiting was about 7 PM last night. Nurse reports almost feculent-looking vomitus. No output get from her ostomy. Current Medications Current Medications Current Medications Acetaminophen/ Hydrocodone Bitart ([place], Anexsia 5/325) 1 tab Q4HP PRN PO MILD/MODERATE PAIN (PS 1-7); Start 06/28/18 at 08:30 Acetaminophen/ Hydrocodone Bitart ([place], Anexsia 5/325) 2 tab Q4HP PRN PO SEVERE PAIN (PS 8-10); Start 06/28/18 at 08:30 Alvimopan (Entereg) 12 mg BID PO Last administered on 06/29/18at 09:20; Start 06/26/18 at 09:00; Stop 07/01/18 at 08:59 Ciprofloxacin 400 mg/IV Miscellaneous Supplies 200 ml @ 200 mls/hr Q12H IV Last administered on 06/28/18at 01:23; Start 06/26/18 at 13:00; Stop 06/28/18 at 11:30; Status DC Dimenhydrinate (Dramamine) 50 mg Q6HP PRN PO NAUSEA OR VOMITING Last administered on 06/28/18at 17:43; Start 06/28/18 at 11:30 Diphenhydramine HCl (Benadryl) 12.5 mg Q4HP PRN IV ITCHING; Start 06/26/18 at 07:30; Stop 06/28/18 at 08:32; Status DC Diphenhydramine HCl (Benadryl) 25 mg STAT STAT IV Last administered on 06/26/18at 01:08; Start 06/26/18 at 00:52; Stop 06/26/18 at 00:53; Status DC Enoxaparin Sodium (Lovenox) 40 mg DAILY SC Last administered on 06/29/18at 09:20; Start 06/26/18 at 09:00 Ertapenem 1 gm/ Sodium Chloride 50 ml @ 100 mls/hr Q24H IV Last administered on 06/29/18at 13:04; Start 06/28/18 at 13:00 Fentanyl Citrate (Sublimaze) 25 mcg Q5MP PRN IV MODERATE PAIN (PS 4-7); Start 06/26/18 at 08:15; Stop 06/26/18 at 09:15; Status DC Fluticasone Propionate (Flonase 0.05% Nasal [place]) 2 spray DAILY PRN NARES NASAL CONGESTION; Start 06/26/18 at 07:15 Home Med (Med Rec Complete!) ASDIRECTED XX ; Start 06/26/18 at 02:30; Stop 06/26/18 at 02:49; Status DC Hydroxychloroquine Sulfate (Plaquenil) 200 mg BID PO Last administered on 06/28/18at 21:50; Start 06/26/18 at 09:00 Ketorolac Tromethamine (ToRADol) 30 mg Q6HP PRN IV MILD/MODERATE PAIN (PS 1-7) Last administered on 06/29/18at 15:18; Start 06/26/18 at 07:15; Stop 07/01/18 at 07:14 Lactated Ringer's 1,000 ml @ 80 mls/hr [id number] IV ; Start 06/26/18 at 08:15; Stop 06/26/18 at 09:15; Status DC Lactated Ringer's 1,000 ml @ 125 mls/hr Q8H IV Last administered on 06/29/18at 11:07; Start 06/26/18 at 07:13 Lisinopril (Prinivil) 20 mg DAILY PO Last administered on 06/29/18at 09:19; Start 06/26/18 at 09:00 Metronidazole 500 mg/IV Miscellaneous Supplies 100 ml @ 100 mls/hr Q8H IV Last administered on 06/28/18at 08:36; Start 06/26/18 at 10:00; Stop 06/28/18 at 11:30; Status DC Morphine Sulfate (Morphine Sulfate In 0.9%Nacl Iv Bag) Concentration 1 mg/ml ASDIRECTED PRN IV SEE LABEL COMMENTS; Start 06/26/18 at 07:30; Stop 06/28/18 at 08:32; Status DC Morphine Sulfate (Morphine Sulfate Inj) 2 mg Q5M PRN IV MODERATE/SEVERE PAIN (PS 5-10); Start 06/26/18 at 08:15; Stop 06/26/18 at 09:15; Status DC Nalbuphine HCl (Nubain) 2.5 mg Q6HP PRN IV PRURITIS; Start 06/26/18 at 07:30; Stop 06/28/18 at 08:32; Status DC Naloxone HCl (Narcan) 0.1 mg Q5MP PRN IV SEE LABEL COMMENTS; Start 06/26/18 at 07:30; Stop 06/28/18 at 08:32; Status DC Non-Formulary Medication (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 Q1M PRN XX SEE LABEL COMMENTS; Start 06/26/18 at 07:30; Stop 06/28/18 at 08:32; Status DC Ondansetron HCl (ZOFRAN INJection) 4 mg Q4HP PRN IV NAUSEA OR VOMITING; Start 06/26/18 at 08:15; Stop 06/26/18 at 09:15; Status DC Ondansetron HCl (ZOFRAN INJection) 4 mg Q6HP PRN IV NAUSEA OR VOMITING Last a dministered on 06/29/18at 15:18; Start 06/26/18 at 07:15 Oxycodone/ Acetaminophen (Percocet 5mg/ 325mg Tablet) 1 tab ASDIRECTED PRN PO MILD/MODERATE PAIN (PS 1-7); Start 06/26/18 at 08:15; Stop 06/26/18 at 09:15; Status DC Pantoprazole Sodium (Protonix) 40 mg DAILY IV Last administered on 06/29/18at 09:19; Start 06/26/18 at 09:00 Prochlorperazine (Compazine) 10 mg Q6HP PRN IV VOMITING Last administered on 06/28/18at 14:35; Start 06/28/18 at 05:45 Senna/Docusate Sodium (Senokot S) 1 tab BID PO Last administered on 06/29/18at 09:20; Start 06/26/18 at 09:00 Sodium Chloride 1,000 ml @ 15 mls/hr Q24H IV ; Start 06/26/18 at 07:22; Stop 06/26/18 at 07:31; Status DC Allergies Coded Allergies: Penicillins (Verified Allergy, Severe, ULCERATED THROAT, 06/26/18) bacitracin (Verified Allergy, Intermediate, RASH, 06/25/18) celecoxib (Verified Allergy, Intermediate, RASH - CAN TAKE IBUPROFEN AND NAPROXEN, 06/26/18) neomycin (Verified Allergy, Intermediate, RASH, 06/25/18) polymyxin B (Verified Allergy, Intermediate, RASH , 06/25/18) ramipril (Verified Allergy, Intermediate, RASH, 06/26/18) Sulfa (Sulfonamide Antibiotics) (Verified Adverse Reaction, Mild, NAUSEA/VOMITING, 06/26/18) codeine (Verified Adverse Reaction, Mild, NAUSEA/VOMITING, 06/26/18) doxycycline (Verified Adverse Reaction, Mild, VOMITING, 06/26/18) Objective Physical Examination Examination GENERAL APPEARANCE: Patient seen sitting up on a recliner, looks more comfortable today than she was yesterday. SKIN: Warm and moist. HEENT: Normocephalic, atraumatic. Mild pale palpebral conjunctiva, anicteric sclerae. Lips and mucosa appear moist. NECK: Supple, no thyromegaly. No obvious jugular venous distention. LUNGS: Clear to auscultation bilaterally. No wheezing appreciated. HEART: No chest wall abnormalities. Regular rate and rhythm with no murmurs appreciated. ABDOMEN: Abdomen is obese, soft, and mildly distended, tympanitic to percussion. Lower midline incision is clean, dry, no drainage noted. CHANDLER drain with minimal light pink almost serous drainage. Left lower quadrant ostomy, healthy, swollen, no output get. EXTREMITIES: No edema. Vital Signs Vital Signs Date Time Temp Pulse Resp B/P (MAP) Pulse Ox O2 Delivery O2 Flow Rate FiO2 06/29/18 09:19 134/74 06/29/18 06:00 97.3 64 18 97 06/27/18 14:00 2.0 06/26/18 03:44 Room Air I&Os I&O- Last 24 Hours up to 6 AM 06/29/18 05:59 Intake Total 280 ml Output Total 1545 ml Balance -1265 ml Laboratory Data Labs 24H Laboratory Tests 2 06/29/18 05:33: Immature Granulocyte % (Auto) 0.3, White Blood Count 10.2H, Red Blood Count 3.34L, Hemoglobin 9.5L, Hematocrit 29.1L, Mean Corpuscular Volume 87.1, Mean Corpuscular Hemoglobin 28.4, Mean Corpuscular Hemoglobin Concent 32.6, Red Cell Distribution Width 13.2, Platelet Count 187, Neutrophils (%) (Auto) 70.2H, Lymphocytes (%) (Auto) 19.9L, Monocytes (%) (Auto) 7.6H, Eosinophils (%) (Auto) 1.8, Basophils (%) (Auto) 0.2, Neutrophils # (Auto) 7.2, Lymphocytes # (Auto) 2.0, Monocytes # (Auto) 0.8, Eosinophils # (Auto) 0.2, Basophils # (Auto) 0.0, Nucleated Red Blood Cells % (auto) 0.0, Anion Gap 8, Glomerular Filtration Rate > 60.0, Blood Urea Nitrogen 20H, Creatinine 0.88, Sodium Level 139, Potassium Level 3.7, Chloride Level 108H, Carbon Dioxide Level 23, Calcium Level 8.0L CBC/BMP Laboratory Tests 06/29/18 05:33 Red Blood Count 3.34 L, Mean Corpuscular Volume 87.1, Mean Corpuscular Hemoglobin 28.4, Mean Corpuscular Hemoglobin Concent 32.6, Red Cell Distribution Width 13.2, Neutrophils (%) (Auto) 70.2 H, Lymphocytes (%) (Auto) 19.9 L, Monocytes (%) (Auto) 7.6 H, Eosinophils (%) (Auto) 1.8, Basophils (%) (Auto) 0.2, Neutrophils # (Auto) 7.2, Lymphocytes # (Auto) 2.0, Monocytes # (Auto) 0.8, Eosinophils # (Auto) 0.2, Basophils # (Auto) 0.0, Calcium Level 8.0 L Microbiology Microbiology 06/26/18 Wound Culture - Final, Resulted Escherichia Coli Lactobacillus Species 06/26/18 Anaerobic Culture, Resulted Pending Impression POD3 sigmoid colon resection, colostomy for acute diverticulitis Ileus She continued to have nausea up until the evening 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 She still not having any function from her ostomy separation she has some significant ileus though her abdomen is mainly soft, mildly distended. She looks more comfortable this morning as a nausea has receded. Encouraged her to take some clear liquids today. She is willing to ambulate to the hallways today. She continues on Entereg. I have switched her antibiotics to Invanz as microbiology shows her Escherichia coli is resistant to fluoroquinolones. PLAN: d/c irma continue iv antibiotics, await microbiology await pathology continue with clears - no ostomy output yet ambulate Plan / VTE VTE Prophylaxis Ordered?: Yes Plan / Urinary Catheter Urinary Catheter: D/C ALEXANDER Peñaloza MD June 29, 2018 16:08
--- NOTE | 2018-06-29 18:40 | REP ---
KUB: Two views. History: Nausea. Findings: There is a surgical drain in the right pelvis. Laparotomy skin jennyfer are seen in the midline. There is a left lower quadrant enterostomy ring. There are air-filled mild to moderate lead dilated small bowel loops in the central abdomen consistent with ileus. There is air and stool in a nondistended colon. Electronically Signed by Luis Eduardo Alonso MD 06/29/2018 06:32 P
[2018-06-29 22:00] VITALS: BP 186/81
[2018-06-29 22:30] VITALS: BP 164/80
[2018-06-30 06:00] VITALS: BP 172/80
[2018-06-30 06:36] LABS: BASO % 0.4 % (0.0-1.0); EOS # 0.2 10^3/uL (0.0-0.50); EOS % 2.8 % (0.0-3.0); HEMATOCRIT 30.6 % (36.0-47.0); HEMOGLOBIN 9.9 g/dl (12.0-15.5); LYMPH # 1.7 10^3/uL (1.5-4.5); LYMPH % 19.6 % (24.0-44.0); MEAN CORPUSCULAR HEMOGLOBIN 28.6 pg (27.0-33.0); MEAN CORPUSCULAR HGB CONC 32.4 g/dl (32.0-36.5); MEAN CORPUSCULAR VOLUME 88.4 fl (80.0-96.0); MONO # 0.7 10^3/uL (0.0-0.8); MONO % 8.5 % (0.0-5.0); NEUTROPHILS # 5.8 10^3/uL (1.8-7.7); NEUTROPHILS % 68.2 % (36.0-66.0); PLATELET COUNT, AUTOMATED 195 10^3/uL (150-450); RED BLOOD COUNT 3.46 10^6/uL (4.00-5.40); WHITE BLOOD COUNT 8.5 10^3/uL (4.0-10.0)
[2018-06-30 07:06] LABS: BLOOD UREA NITROGEN 23 MG/DL (7-18); CALCIUM LEVEL 7.9 MG/DL (8.8-10.2); CARBON DIOXIDE LEVEL 21 MEQ/L (21-32); CHLORIDE LEVEL 109 MEQ/L (98-107); CREATININE FOR GFR 0.86 MG/DL (0.55-1.30); GLOMERULAR FILTRATION RATE > 60.0 (>45); GLUCOSE, FASTING 63 MG/DL (70-100); POTASSIUM SERUM 3.8 MEQ/L (3.5-5.1); SODIUM LEVEL 138 MEQ/L (136-145)
[2018-06-30] MEDS: HYDROXYCHLOROQUINE 200 MG TAB PO SCH ×2 (09:00→21:00)
[2018-06-30] MEDS: ALVIMOPAN 12 MG CAPSULE (ENTEREG) PO SCH ×2 (09:07→22:20)
[2018-06-30] MEDS: LISINOPRIL 20 MG TAB PO SCH (09:08)
[2018-06-30] MEDS: SENOKOT S TAB PO SCH ×2 (09:08→22:21)
[2018-06-30] MEDS: PANTOPRAZOLE 40MG INJ (PROTONIX) (C9113) IV SCH (09:08)
[2018-06-30] MEDS: ENOXAPARIN 40 MG/0.4 ML SYRINGE (J1650) SC SCH (09:08)
[2018-06-30] MEDS: LR 1,000 ML IV SCH ×3 (09:09→23:13)
[2018-06-30] MEDS: ERTAPENEM SODIUM 1 GM in NS MINI-BAG PLUS 50 ML IV SCH (12:23)
--- NOTE | 2018-06-30 12:44 | IPNPDOC ---
Subjective General Date/Time Seen The patient was seen on 06/30/18 at 07:17. Subject Chief Complaint/History The patient is a 67-year-old female admitted with a reason for visit of Perforated Acute Diverticulitis. Patient reports she is feeling better today. No more nausea. Her colostomy started functioning overnight, had some leakage around the original ostomy appliance and was changed this morning. She's been ambulating to the hallways early this morning. Current Medications Current Medications Current Medications Acetaminophen/ Hydrocodone Bitart ([place], Anexsia 5/325) 1 tab Q4HP PRN PO MILD/MODERATE PAIN (PS 1-7); Start 06/28/18 at 08:30 Acetaminophen/ Hydrocodone Bitart ([place], Anexsia 5/325) 2 tab Q4HP PRN PO SEVERE PAIN (PS 8-10); Start 06/28/18 at 08:30 Alvimopan (Entereg) 12 mg BID PO Last administered on 06/29/18at 19:58; Start 06/26/18 at 09:00; Stop 07/01/18 at 08:59 Ciprofloxacin 400 mg/IV Miscellaneous Supplies 200 ml @ 200 mls/hr Q12H IV Last administered on 06/28/18at 01:23; Start 06/26/18 at 13:00; Stop 06/28/18 at 11:30; Status DC Dimenhydrinate (Dramamine) 50 mg Q6HP PRN PO NAUSEA OR VOMITING Last administered on 06/28/18at 17:43; Start 06/28/18 at 11:30 Diphenhydramine HCl (Benadryl) 12.5 mg Q4HP PRN IV ITCHING; Start 06/26/18 at 07:30; Stop 06/28/18 at 08:32; Status DC Diphenhydramine HCl (Benadryl) 25 mg STAT STAT IV Last administered on 06/26/18at 01:08; Start 06/26/18 at 00:52; Stop 06/26/18 at 00:53; Status DC Enoxaparin Sodium (Lovenox) 40 mg DAILY SC Last administered on 06/29/18at 09:20; Start 06/26/18 at 09:00 Ertapenem 1 gm/ Sodium Chloride 50 ml @ 100 mls/hr Q24H IV Last administered on 06/29/18at 13:04; Start 06/28/18 at 13:00 Fentanyl Citrate (Sublimaze) 25 mcg Q5MP PRN IV MODERATE PAIN (PS 4-7); Start 06/26/18 at 08:15; Stop 06/26/18 at 09:15; Status DC Fluticasone Propionate (Flonase 0.05% Nasal [place]) 2 spray DAILY PRN NARES NASAL CONGESTION; Start 06/26/18 at 07:15 Home Med (Med Rec Complete!) ASDIRECTED XX ; Start 06/26/18 at 02:30; Stop 06/26/18 at 02:49; Status DC Hydroxychloroquine Sulfate (Plaquenil) 200 mg BID PO Last administered on 06/28/18at 21:50; Start 06/26/18 at 09:00 Ketorolac Tromethamine (ToRADol) 30 mg Q6HP PRN IV MILD/MODERATE PAIN (PS 1-7) Last administered on 06/29/18at 23:07; Start 06/26/18 at 07:15; Stop 07/01/18 at 07:14 Lactated Ringer's 1,000 ml @ 80 mls/hr [id number] IV ; Start 06/26/18 at 08:15; Stop 06/26/18 at 09:15; Status DC Lactated Ringer's 1,000 ml @ 125 mls/hr Q8H IV Last administered on 06/29/18at 23:07; Start 06/26/18 at 07:13 Lisinopril (Prinivil) 20 mg DAILY PO Last administered on 06/29/18at 09:19; Start 06/26/18 at 09:00 Metronidazole 500 mg/IV Miscellaneous Supplies 100 ml @ 100 mls/hr Q8H IV Last administered on 06/28/18at 08:36; Start 06/26/18 at 10:00; Stop 06/28/18 at 11:30; Status DC Morphine Sulfate (Morphine Sulfate In 0.9%Nacl Iv Bag) Concentration 1 mg/ml ASDIRECTED PRN IV SEE LABEL COMMENTS; Start 06/26/18 at 07:30; Stop 06/28/18 at 08:32; Status DC Morphine Sulfate (Morphine Sulfate Inj) 2 mg Q5M PRN IV MODERATE/SEVERE PAIN (PS 5-10); Start 06/26/18 at 08:15; Stop 06/26/18 at 09:15; Status DC Nalbuphine HCl (Nubain) 2.5 mg Q6HP PRN IV PRURITIS; Start 06/26/18 at 07:30; Stop 06/28/18 at 08:32; Status DC Naloxone HCl (Narcan) 0.1 mg Q5MP PRN IV SEE LABEL COMMENTS; Start 06/26/18 at 07:30; Stop 06/28/18 at 08:32; Status DC Non-Formulary Medication (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 Q1M PRN XX SEE LABEL COMMENTS; Start 06/26/18 at 07:30; Stop 06/28/18 at 08:32; Status DC Ondansetron HCl (ZOFRAN INJection) 4 mg Q4HP PRN IV NAUSEA OR VOMITING; Start 06/26/18 at 08:15; Stop 06/26/18 at 09:15; Status DC Ondansetron HCl (ZOFRAN INJection) 4 mg Q6HP PRN IV NAUSEA OR VOMITING Last administered on 06/29/18at 23:07; Start 06/26/18 at 07:15 Oxycodone/ Acetaminophen (Percocet 5mg/ 325mg Tablet) 1 tab ASDIRECTED PRN PO MILD/MODERATE PAIN (PS 1-7); Start 06/26/18 at 08:15; Stop 06/26/18 at 09:15; Status DC Pantoprazole Sodium (Protonix) 40 mg DAILY IV Last administered on 06/29/18at 09:19; Start 06/26/18 at 09:00 Prochlorperazine (Compazine) 10 mg Q6HP PRN IV VOMITING Last administered on 06/28/18at 14:35; Start 06/28/18 at 05:45 Senna/Docusate Sodium (Senokot S) 1 tab BID PO Last administered on 06/29/18at 19:58; Start 06/26/18 at 09:00 Sodium Chloride 1,000 ml @ 15 mls/hr Q24H IV ; Start 06/26/18 at 07:22; Stop 06/26/18 at 07:31; Status DC Allergies Coded Allergies: Penicillins (Verified Allergy, Severe, ULCERATED THROAT, 06/26/18) bacitracin (Verified Allergy, Intermediate, RASH, 06/25/18) celecoxib (Verified Allergy, Intermediate, RASH - CAN TAKE IBUPROFEN AND NAPROXEN, 06/26/18) neomycin (Verified Allergy, Intermediate, RASH, 06/25/18) polymyxin B (Verified Allergy, Intermediate, RASH , 06/25/18) ramipril (Verified Allergy, Intermediate, RASH, 06/26/18) Sulfa (Sulfonamide Antibiotics) (Verified Adverse Reaction, Mild, NAUSEA/VOMITING, 06/26/18) codeine (Verified Adverse Reaction, Mild, NAUSEA/VOMITING, 06/26/18) doxycycline (Verified Adverse Reaction, Mild, VOMITING, 06/26/18) Objective Physical Examination Examination GENERAL APPEARANCE: Patient sitting up on the bed, looks very comfortable. SKIN: Warm and moist. HEENT: Normocephalic, atraumatic. Paul palpebral conjunctiva, anicteric sclerae. Lips and mucosa appear moist. NECK: Supple, no thyromegaly. No obvious jugular venous distention. LUNGS: Clear to auscultation bilaterally. No wheezing appreciated. HEART: No chest wall abnormalities. Regular rate and rhythm with no murmurs appreciated. ABDOMEN: Abdomen is mildly obese, soft, less distended than yesterday, less tympanitic. Lower midline incision with jennyfer intact clean, dry and intact. New ostomy appliance on the left lower quadrant ostomy still mildly swollen but with brown loose stool in the bag now. EXTREMITIES: No edema. Vital Signs Vital Signs Date Time Temp Pulse Resp B/P (MAP) Pulse Ox O2 Delivery O2 Flow Rate FiO2 06/30/18 06:00 97.2 64 14 172/80 (110) 99 06/27/18 14:00 2.0 06/26/18 03:44 Room Air I&Os I&O- Last 24 Hours up to 6 AM 06/30/18 06:00 Intake Total 1847 ml Output Total 2180 ml Balance -333 ml Laboratory Data Labs 24H Laboratory Tests 2 06/30/18 05:58: Immature Granulocyte % (Auto) 0.5, White Blood Count 8.5, Red Blood Count 3.46L, Hemoglobin 9.9L, Hematocrit 30.6L, Mean Corpuscular Volume 88.4, Mean Corpuscular Hemoglobin 28.6, Mean Corpuscular Hemoglobin Concent 32.4, Red Cell Distribution Width 13.2, Platelet Count 195, Neutrophils (%) (Auto) 68.2H, Lymphocytes (%) (Auto) 19.6L, Monocytes (%) (Auto) 8.5H, Eosinophils (%) (Auto) 2.8, Basophils (%) (Auto) 0.4, Neutrophils # (Auto) 5.8, Lymphocytes # (Auto) 1.7, Monocytes # (Auto) 0.7, Eosinophils # (Auto) 0.2, Basophils # (Auto) 0.0, Nucleated Red Blood Cells % (auto) 0.0, Anion Gap 8, Glomerular Filtration Rate > 60.0, Blood Urea Nitrogen 23H, Creatinine 0.86, Sodium Level 138, Potassium Level 3.8, Chloride Level 109H, Carbon Dioxide Level 21, Calcium Level 7.9L CBC/BMP Laboratory Tests 06/30/18 05:58 Red Blood Count 3.46 L, Mean Corpuscular Volume 88.4, Mean Corpuscular Hemoglobin 28.6, Mean Corpuscular Hemoglobin Concent 32.4, Red Cell Distribution Width 13.2, Neutrophils (%) (Auto) 68.2 H, Lymphocytes (%) (Auto) 19.6 L, Monocytes (%) (Auto) 8.5 H, Eosinophils (%) (Auto) 2.8, Basophils (%) (Auto) 0.4, Neutrophils # (Auto) 5.8, Lymphocytes # (Auto) 1.7, Monocytes # (Auto) 0.7, Eosinophils # (Auto) 0.2, Basophils # (Auto) 0.0, Calcium Level 7.9 L Microbiology Microbiology 06/26/18 Wound Culture - Final, Resulted Escherichia Coli Lactobacillus Species 06/26/18 Anaerobic Culture, Resulted Pending Imaging Studies KUB Xray There is a surgical drain in the right pelvis. Laparotomy skin jennyfer are seen in the midline. There is a left lower quadrant enterostomy ring. There are air-filled mild to moderate lead dilated small bowel loops in the central abdomen consistent with ileus. There is air and stool in a nondistended colon. 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 She still not having any function from her ostomy separation she has some significant ileus though her abdomen is mainly soft, mildly distended. She looks more comfortable this morning as a nausea has receded. Encouraged her to take some clear liquids today. She is willing to ambulate to the hallways today. She continues on Entereg. I have switched her antibiotics to Invanz as microbiology shows her Escherichia coli is resistant to fluoroquinolones. PLAN: d/c solis abx switched yesterday to invanz, Microbiology shows growth of E. Coli, Lactobacillus resistant to fluoroquinolones pathology consistent with diverticulitis - no malignancy found We'll start her on BRAT diet today ambulate Plan / VTE VTE Prophylaxis Ordered?: Yes Plan / Urinary Catheter Urinary Catheter: D/C ALEXANDER Peñaloza MD June 30, 2018 07:20
[2018-06-30 14:00] VITALS: BP 176/73
[2018-06-30 22:00] VITALS: BP 173/73
[2018-07-01 06:00] VITALS: BP 172/76
[2018-07-01 06:25] LABS: BASO % 0.4 % (0.0-1.0); EOS # 0.2 10^3/uL (0.0-0.50); EOS % 3.1 % (0.0-3.0); HEMATOCRIT 30.8 % (36.0-47.0); HEMOGLOBIN 9.9 g/dl (12.0-15.5); LYMPH # 1.6 10^3/uL (1.5-4.5); LYMPH % 20.9 % (24.0-44.0); MEAN CORPUSCULAR HEMOGLOBIN 28.5 pg (27.0-33.0); MEAN CORPUSCULAR HGB CONC 32.1 g/dl (32.0-36.5); MEAN CORPUSCULAR VOLUME 88.8 fl (80.0-96.0); MONO # 0.6 10^3/uL (0.0-0.8); NEUTROPHILS % 67.2 % (36.0-66.0); PLATELET COUNT, AUTOMATED 191 10^3/uL (150-450); RED BLOOD COUNT 3.47 10^6/uL (4.00-5.40); WHITE BLOOD COUNT 7.4 10^3/uL (4.0-10.0)
[2018-07-01 06:52] LABS: BLOOD UREA NITROGEN 14 MG/DL (7-18); CALCIUM LEVEL 7.7 MG/DL (8.8-10.2); CARBON DIOXIDE LEVEL 26 MEQ/L (21-32); CHLORIDE LEVEL 111 MEQ/L (98-107); CREATININE FOR GFR 0.71 MG/DL (0.55-1.30); GLOMERULAR FILTRATION RATE > 60.0 (>45); GLUCOSE, FASTING 95 MG/DL (70-100); POTASSIUM SERUM 3.8 MEQ/L (3.5-5.1); SODIUM LEVEL 142 MEQ/L (136-145)
[2018-07-01] MEDS: LR 1,000 ML IV SCH (07:13)
[2018-07-01] MEDS: HYDROXYCHLOROQUINE 200 MG TAB PO SCH (09:00)
[2018-07-01] MEDS: SENOKOT S TAB PO SCH ×2 (09:00→20:52)
[2018-07-01] MEDS: LISINOPRIL 20 MG TAB PO SCH (09:00)
[2018-07-01] MEDS: ENOXAPARIN 40 MG/0.4 ML SYRINGE (J1650) SC SCH (09:01)
[2018-07-01] MEDS: PANTOPRAZOLE 40MG INJ (PROTONIX) (C9113) IV SCH (09:01)
[2018-07-01] MEDS: ERTAPENEM SODIUM 1 GM in NS MINI-BAG PLUS 50 ML IV SCH (12:52)
--- NOTE | 2018-07-01 13:14 | IPNPDOC ---
Subjective General Date/Time Seen The patient was seen on 07/01/18 at 08:11. Subject Chief Complaint/History The patient is a 67-year-old female admitted with a reason for visit of Perforated Acute Diverticulitis. Patient reports she is doing much better. She is denying any nausea. No fevers or chills reported. Her CHANDLER drain output is also starting to come down. Her colostomy is working but is having some leakage from the lateral portion of the colostomy needing change of appliance. She reports her stools are getting to have more formed. She is reporting some pressure type discomfort in her pelvis. Current Medications Current Medications Current Medications Acetaminophen/ Hydrocodone Bitart ([place], Anexsia 5/325) 1 tab Q4HP PRN PO MILD/MODERATE PAIN (PS 1-7); Start 06/28/18 at 08:30 Acetaminophen/ Hydrocodone Bitart ([place], Anexsia 5/325) 2 tab Q4HP PRN PO SEVERE PAIN (PS 8-10); Start 06/28/18 at 08:30 Alvimopan (Entereg) 12 mg BID PO Last administered on 06/30/18at 22:20; Start 06/26/18 at 09:00; Stop 07/01/18 at 08:59 Ciprofloxacin 400 mg/IV Miscellaneous Supplies 200 ml @ 200 mls/hr Q12H IV Last administered on 06/28/18at 01:23; Start 06/26/18 at 13:00; Stop 06/28/18 at 11:30; Status DC Dimenhydrinate (Dramamine) 50 mg Q6HP PRN PO NAUSEA OR VOMITING Last administered on 06/28/18at 17:43; Start 06/28/18 at 11:30 Diphenhydramine HCl (Benadryl) 12.5 mg Q4HP PRN IV ITCHING; Start 06/26/18 at 07:30; Stop 06/28/18 at 08:32; Status DC Diphenhydramine HCl (Benadryl) 25 mg STAT STAT IV Last administered on 06/26/18at 01:08; Start 06/26/18 at 00:52; Stop 06/26/18 at 00:53; Status DC Enoxaparin Sodium (Lovenox) 40 mg DAILY SC Last administered on 06/30/18at 09:08; Start 06/26/18 at 09:00 Ertapenem 1 gm/ Sodium Chloride 50 ml @ 100 mls/hr Q24H IV Last administered on 06/30/18at 12:23; Start 06/28/18 at 13:00 Fentanyl Citrate (Sublimaze) 25 mcg Q5MP PRN IV MODERATE PAIN (PS 4-7); Start 06/26/18 at 08:15; Stop 06/26/18 at 09:15; Status DC Fluticasone Propionate (Flonase 0.05% Nasal [place]) 2 spray DAILY PRN NARES NASAL CONGESTION; Start 06/26/18 at 07:15 Home Med (Med Rec Complete!) ASDIRECTED XX ; Start 06/26/18 at 02:30; Stop 06/26/18 at 02:49; Status DC Hydroxychloroquine Sulfate (Plaquenil) 200 mg BID PO Last administered on 06/28/18at 21:50; Start 06/26/18 at 09:00 Ketorolac Tromethamine (ToRADol) 30 mg Q6HP PRN IV MILD/MODERATE PAIN (PS 1-7) Last administered on 06/29/18at 23:07; Start 06/26/18 at 07:15; Stop 07/01/18 at 07:14; Status DC Lactated Ringer's 1,000 ml @ 80 mls/hr [id number] IV ; Start 06/26/18 at 08:15; Stop 06/26/18 at 09:15; Status DC Lactated Ringer's 1,000 ml @ 125 mls/hr Q8H IV Last administered on 06/30/18at 23:13; Start 06/26/18 at 07:13 Lisinopril (Prinivil) 20 mg DAILY PO Last administered on 06/30/18at 09:08; Start 06/26/18 at 09:00 Metronidazole 500 mg/IV Miscellaneous Supplies 100 ml @ 100 mls/hr Q8H IV Last administered on 06/28/18at 08:36; Start 06/26/18 at 10:00; Stop 06/28/18 at 11:30; Status DC Morphine Sulfate (Morphine Sulfate In 0.9%Nacl Iv Bag) Concentration 1 mg/ml ASDIRECTED PRN IV SEE LABEL COMMENTS; Start 06/26/18 at 07:30; Stop 06/28/18 at 08:32; Status DC Morphine Sulfate (Morphine Sulfate Inj) 2 mg Q5M PRN IV MODERATE/SEVERE PAIN (PS 5-10); Start 06/26/18 at 08:15; Stop 06/26/18 at 09:15; Status DC Nalbuphine HCl (Nubain) 2.5 mg Q6HP PRN IV PRURITIS; Start 06/26/18 at 07:30; Stop 06/28/18 at 08:32; Status DC Naloxone HCl (Narcan) 0.1 mg Q5MP PRN IV SEE LABEL COMMENTS; Start 06/26/18 at 07:30; Stop 06/28/18 at 08:32; Status DC Non-Formulary Medication (Epidural/CHECK OUT CLERK [place]) USE THIS ENTRY TO VEND ... Q1M PRN XX SEE LABEL COMMENTS; Start 06/26/18 at 07:30; Stop 06/28/18 at 08:32; Status DC Ondansetron HCl (ZOFRAN INJection) 4 mg Q4HP PRN IV NAUSEA OR VOMITING; Start 06/26/18 at 08:15; Stop 06/26/18 at 09:15; Status DC Ondansetron HCl (ZOFRAN INJection) 4 mg Q6HP PRN IV NAUSEA OR VOMITING Last administered on 06/29/18at 23:07; Start 06/26/18 at 07:15 Oxycodone/ Acetaminophen (Percocet 5mg/ 325mg Tablet) 1 tab ASDIRECTED PRN PO MILD/MODERATE PAIN (PS 1-7); Start 06/26/18 at 08:15; Stop 06/26/18 at 09:15; Status DC Pantoprazole Sodium (Protonix) 40 mg DAILY IV Last administered on 06/30/18at 09:08; Start 06/26/18 at 09:00 Prochlorperazine (Compazine) 10 mg Q6HP PRN IV VOMITING Last administered on 06/28/18at 14:35; Start 06/28/18 at 05:45 Senna/Docusate Sodium (Senokot S) 1 tab BID PO Last administered on 06/30/18at 22:21; Start 06/26/18 at 09:00 Sodium Chloride 1,000 ml @ 15 mls/hr Q24H IV ; Start 06/26/18 at 07:22; Stop 06/26/18 at 07:31; Status DC Allergies Coded Allergies: Penicillins (Verified Allergy, Severe, ULCERATED THROAT, 06/26/18) bacitracin (Verified Allergy, Intermediate, RASH, 06/25/18) celecoxib (Verified Allergy, Intermediate, RASH - CAN TAKE IBUPROFEN AND NAPROXEN, 06/26/18) neomycin (Verified Allergy, Intermediate, RASH, 06/25/18) polymyxin B (Verified Allergy, Intermediate, RASH , 06/25/18) ramipril (Verified Allergy, Intermediate, RASH, 06/26/18) Sulfa (Sulfonamide Antibiotics) (Verified Adverse Reaction, Mild, NAUSEA/V OMITING, 06/26/18) codeine (Verified Adverse Reaction, Mild, NAUSEA/VOMITING, 06/26/18) doxycycline (Verified Adverse Reaction, Mild, VOMITING, 06/26/18) Objective Physical Examination Examination GENERAL APPEARANCE: Patient laying in bed, appears very comfortable. SKIN: Warm and moist. HEENT: Normocephalic, atraumatic. [place] palpebral conjunctiva, anicteric sclerae. Lips and mucosa appear moist. NECK: Supple, no thyromegaly. No obvious jugular venous distention. LUNGS: Clear to auscultation bilaterally. No wheezing appreciated. HEART: No chest wall abnormalities. Regular rate and rhythm with no murmurs appreciated. ABDOMEN: Abdomen is minimally distended, soft, lower midline incision with jennyfer, clean, dry and intact. She has a right lower quadrant CHANDLER drain with serous output in the tube and in the CHANDLER bulb. She has a left side colostomy with mild residual swelling but with small amount of gas and semi-formed stool in the bag. The appliance is reinforced on both lateral and medial side. EXTREMITIES: Extremities have no deformities. No edema identified. Vital Signs Vital Signs Date Time Temp Pulse Resp B/P (MAP) Pulse Ox O2 Delivery O2 Flow Rate FiO2 07/01/18 06:00 97.7 73 18 172/76 (108) 95 06/30/18 14:00 Room Air 06/27/18 14:00 2.0 I&Os I&O- Last 24 Hours up to 6 AM 07/01/18 06:00 Intake Total 2470 ml Output Total 2900 ml Balance -430 ml Laboratory Data Labs 24H Laboratory Tests 2 07/01/18 05:51: Immature Granulocyte % (Auto) 0.4, White Blood Count 7.4, Red Blood Count 3.47L, Hemoglobin 9.9L, Hematocrit 30.8L, Mean Corpuscular Volume 88.8, Mean Corpuscular Hemoglobin 28.5, Mean Corpuscular Hemoglobin Concent 32.1, Red Cell Distribution Width 13.2, Platelet Count 191, Neutrophils (%) (Auto) 67.2H, Lymphocytes (%) (Auto) 20.9L, Monocytes (%) (Auto) 8.0H, Eosinophils (%) (Auto) 3.1H, Basophils (%) (Auto) 0.4, Neutrophils # (Auto) 5.0, Lymphocytes # (Auto) 1.6, Monocytes # (Auto) 0.6, Eosinophils # (Auto) 0.2, Basophils # (Auto) 0.0, Nucleated Red Blood Cells % (auto) 0.0, Anion Gap 5L, Glomerular Filtration Rate > 60.0, Blood Urea Nitrogen 14, Creatinine 0.71, Sodium Level 142, Potassium Level 3.8, Chloride Level 111H, Carbon Dioxide Level 26, Calcium Level 7.7L CBC/BMP Laboratory Tests 07/01/18 05:51 Red Blood Count 3.47 L, Mean Corpuscular Volume 88.8, Mean Corpuscular Hemoglobin 28.5, Mean Corpuscular Hemoglobin Concent 32.1, Red Cell Distribution Width 13.2, Neutrophils (%) (Auto) 67.2 H, Lymphocytes (%) (Auto) 20.9 L, Monocytes (%) (Auto) 8.0 H, Eosinophils (%) (Auto) 3.1 H, Basophils (%) (Auto) 0.4, Neutrophils # (Auto) 5.0, Lymphocytes # (Auto) 1.6, Monocytes # (Auto) 0.6, Eosinophils # (Auto) 0.2, Basophils # (Auto) 0.0, Calcium Level 7.7 L Microbiology Microbiology 06/26/18 Wound Culture - Final, Resulted Escherichia Coli Lactobacillus Species 06/26/18 Anaerobic Culture, Resulted Pending Impression Impression POD5 sigmoid colon resection, colostomy for acute diverticulitis Ileus - resolved She looks to be doing better. Her ileus appears fully resolved at this point. I'll advance her diet. She will continue to work with our nurses with regards to getting the proper set up for her colostomy. Anticipate once this issue has resolved that she will be able to go home. 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 She will try to arrange for her nurses to come to the hospital to be instructed on how to care for the colostomy when she gets home. PLAN: d/c [facility] abx switched yesterday to invanz, Microbiology shows growth of E. Coli, Lactobacillus resistant to fluoroquinolones. (possibly switch to bactrim/flagyl on going home) pathology consistent with diverticulitis - no malignancy found Advance to high fiber diet ambulate Plan / VTE VTE Prophylaxis Ordered?: No VTE Exclusion Mechanical Proph: Low Risk for VTE (patient ambulating well) Plan / Urinary Catheter Urinary Catheter: D/C ALEXANDER Peñaloza MD July 01, 2018 08:11
[2018-07-01 14:00] VITALS: BP 171/76
[2018-07-01 22:00] VITALS: BP 165/74
[2018-07-02 06:00] VITALS: BP 124/72
[2018-07-02 06:31] LABS: BASO % 0.3 % (0.0-1.0); EOS # 0.3 10^3/uL (0.0-0.50); EOS % 3.7 % (0.0-3.0); HEMATOCRIT 29.7 % (36.0-47.0); HEMOGLOBIN 9.7 g/dl (12.0-15.5); LYMPH # 2.4 10^3/uL (1.5-4.5); LYMPH % 34.5 % (24.0-44.0); MEAN CORPUSCULAR HEMOGLOBIN 28.6 pg (27.0-33.0); MEAN CORPUSCULAR HGB CONC 32.7 g/dl (32.0-36.5); MEAN CORPUSCULAR VOLUME 87.6 fl (80.0-96.0); MONO # 0.6 10^3/uL (0.0-0.8); MONO % 8.9 % (0.0-5.0); NEUTROPHILS # 3.7 10^3/uL (1.8-7.7); NEUTROPHILS % 52.2 % (36.0-66.0); PLATELET COUNT, AUTOMATED 194 10^3/uL (150-450); RED BLOOD COUNT 3.39 10^6/uL (4.00-5.40); WHITE BLOOD COUNT 7.1 10^3/uL (4.0-10.0)
[2018-07-02 06:47] LABS: BLOOD UREA NITROGEN 8 MG/DL (7-18); C REACTIVE PROTEIN QUANTITATIV 3.07 MG/DL (0.00-0.30); CALCIUM LEVEL 8.4 MG/DL (8.8-10.2); CARBON DIOXIDE LEVEL 29 MEQ/L (21-32); CHLORIDE LEVEL 109 MEQ/L (98-107); CREATININE FOR GFR 0.73 MG/DL (0.55-1.30); GLOMERULAR FILTRATION RATE > 60.0 (>45); GLUCOSE, FASTING 95 MG/DL (70-100); SODIUM LEVEL 142 MEQ/L (136-145)
--- NOTE | 2018-07-02 07:47 | IPNPDOC ---
Subjective General Date/Time Seen The patient was seen on 07/02/18 at 07:45. Subject Chief Complaint/History The patient is a 67-year-old female admitted with a reason for visit of Perforated Acute Diverticulitis. Tolerating diet, no more nausea. She complains of pressure type discomfort over right lower abdomen and pelvis, maybe related to her drain. Afebrile. Current Medications Current Medications Current Medications Acetaminophen/ Hydrocodone Bitart ([place], Anexsia 5/325) 1 tab Q4HP PRN PO MILD/MODERATE PAIN (PS 1-7); Start 06/28/18 at 08:30 Acetaminophen/ Hydrocodone Bitart ([place], Anexsia 5/325) 2 tab Q4HP PRN PO SEVERE PAIN (PS 8-10) Last administered on 07/02/18at 00:42; Start 06/28/18 at 08:30 Alvimopan (Entereg) 12 mg BID PO Last administered on 06/30/18at 22:20; Start 06/26/18 at 09:00; Stop 07/01/18 at 08:59; Status DC Ciprofloxacin 400 mg/IV Miscellaneous Supplies 200 ml @ 200 mls/hr Q12H IV Last administered on 06/28/18at 01:23; Start 06/26/18 at 13:00; Stop 06/28/18 at 11:30; Status DC Dimenhydrinate (Dramamine) 50 mg Q6HP PRN PO NAUSEA OR VOMITING Last administered on 06/28/18at 17:43; Start 06/28/18 at 11:30 Diphenhydramine HCl (Benadryl) 12.5 mg Q4HP PRN IV ITCHING; Start 06/26/18 at 07:30; Stop 06/28/18 at 08:32; Status DC Diphenhydramine HCl (Benadryl) 25 mg STAT STAT IV Last administered on 06/26/18at 01:08; Start 06/26/18 at 00:52; Stop 06/26/18 at 00:53; Status DC Enoxaparin Sodium (Lovenox) 40 mg DAILY SC Last administered on 07/01/18at 09:01; Start 06/26/18 at 09:00; Stop 07/01/18 at 12:24; Status DC Ertapenem 1 gm/ Sodium Chloride 50 ml @ 100 mls/hr Q24H IV Last administered on 07/01/18at 12:52; Start 06/28/18 at 13:00 Fentanyl Citrate (Sublimaze) 25 mcg Q5MP PRN IV MODERATE PAIN (PS 4-7); Start 06/26/18 at 08:15; Stop 06/26/18 at 09:15; Status DC Fluticasone Propionate (Flonase 0.05% Nasal [place]) 2 spray DAILY PRN NARES NASAL CONGESTION; Start 06/26/18 at 07:15 Home Med (Med Rec Complete!) ASDIRECTED XX ; Start 06/26/18 at 02:30; Stop 06/26/18 at 02:49; Status DC Hydroxychloroquine Sulfate (Plaquenil) 200 mg BID PO Last administered on 06/28/18at 21:50; Start 06/26/18 at 09:00; Stop 07/01/18 at 12:24; Status DC Ketorolac Tromethamine (ToRADol) 30 mg Q6HP PRN IV MILD/MODERATE PAIN (PS 1-7) Last administered on 06/29/18at 23:07; Start 06/26/18 at 07:15; Stop 07/01/18 at 07:14; Status DC Lactated Ringer's 1,000 ml @ 80 mls/hr [id number] IV ; Start 06/26/18 at 08:15; Stop 06/26/18 at 09:15; Status DC Lactated Ringer's 1,000 ml @ 125 mls/hr Q8H IV Last administered on 06/30/18at 23:13; Start 06/26/18 at 07:13; Stop 07/01/18 at 08:13; Status DC Lisinopril (Prinivil) 20 mg DAILY PO Last administered on 07/01/18at 09:00; Start 06/26/18 at 09:00 Metronidazole 500 mg/IV Miscellaneous Supplies 100 ml @ 100 mls/hr Q8H IV Last administered on 06/28/18at 08:36; Start 06/26/18 at 10:00; Stop 06/28/18 at 11:30; Status DC Morphine Sulfate (Morphine Sulfate In 0.9%Nacl Iv Bag) Concentration 1 mg/ml ASDIRECTED PRN IV SEE LABEL COMMENTS; Start 06/26/18 at 07:30; Stop 06/28/18 at 08:32; Status DC Morphine Sulfate (Morphine Sulfate Inj) 2 mg Q5M PRN IV MODERATE/SEVERE PAIN (PS 5-10); Start 06/26/18 at 08:15; Stop 06/26/18 at 09:15; Status DC Nalbuphine HCl (Nubain) 2.5 mg Q6HP PRN IV PRURITIS; Start 06/26/18 at 07:30; Stop 06/28/18 at 08:32; Status DC Naloxone HCl (Narcan) 0.1 mg Q5MP PRN IV SEE LABEL COMMENTS; Start 06/26/18 at 07:30; Stop 06/28/18 at 08:32; Status DC Non-Formulary Medication (Epidural/PRIVATE CLIENT ADVISOR [place]) USE THIS ENTRY TO VEND ... Q1M PRN XX SEE LABEL COMMENTS; Start 06/26/18 at 07:30; Stop 06/28/18 at 08:32; Status DC Ondansetron HCl (ZOFRAN INJection) 4 mg Q4HP PRN IV NAUSEA OR VOMITING; Start 06/26/18 at 08:15; Stop 06/26/18 at 09:15; Status DC Ondansetron HCl (ZOFRAN INJection) 4 mg Q6HP PRN IV NAUSEA OR VOMITING Last administered on 06/29/18at 23:07; Start 06/26/18 at 07:15 Oxycodone/ Acetaminophen (Percocet 5mg/ 325mg Tablet) 1 tab ASDIRECTED PRN PO MILD/MODERATE PAIN (PS 1-7); Start 06/26/18 at 08:15; Stop 06/26/18 at 09:15; Status DC Pantoprazole Sodium (Protonix) 40 mg DAILY IV Last administered on 07/01/18at 09:01; Start 06/26/18 at 09:00 Prochlorperazine (Compazine) 10 mg Q6HP PRN IV VOMITING Last administered on 06/28/18at 14:35; Start 06/28/18 at 05:45 Senna/Docusate Sodium (Senokot S) 1 tab BID PO Last administered on 07/01/18at 20:52; Start 06/26/18 at 09:00 Sodium Chloride 1,000 ml @ 15 mls/hr Q24H IV ; Start 06/26/18 at 07:22; Stop 06/26/18 at 07:31; Status DC Allergies Coded Allergies: Penicillins (Verified Allergy, Severe, ULCERATED THROAT, 06/26/18) bacitracin (Verified Allergy, Intermediate, RASH, 06/25/18) celecoxib (Verified Allergy, Intermediate, RASH - CAN TAKE IBUPROFEN AND NAPROXEN, 06/26/18) neomycin (Verified Allergy, Intermediate, RASH, 06/25/18) polymyxin B (Verified Allergy, Intermediate, RASH , 06/25/18) ramipril (Verified Allergy, Intermediate, RASH, 06/26/18) Sulfa (Sulfonamide Antibiotics) (Verified Adverse Reaction, Mild, NAUSEA/VOMITING, 06/26/18) codeine (Verified Adverse Reaction, Mild, NAUSEA/VOMITING, 06/26/18) doxycycline (Verified Adverse Reaction, Mild, VOMITING, 06/26/18) Objective Physical Examination Examination GENERAL APPEARANCE:comfortable. SKIN: Warm and moist. NECK: Supple, no thyromegaly. No obvious jugular venous distention. LUNGS: Clear to auscultation bilaterally. No wheezing appreciated. HEART: No chest wall abnormalities. Regular rate and rhythm with no murmurs appreciated. ABDOMEN: Abdomen is nondistended, soft, lower midline incision C/D/I. Colostomy functioning - appliance in place since yesterday. EXTREMITIES: Extremities have no deformities. No edema identified. Vital Signs Vital Signs Date Time Temp Pulse Resp B/P (MAP) Pulse Ox O2 Delivery O2 Flow Rate FiO2 07/02/18 01:12 16 07/01/18 22:00 99.0 76 165/74 (104) 98 06/30/18 14:00 Room Air 06/27/18 14:00 2.0 I&Os I&O- Last 24 Hours up to 6 AM 07/02/18 06:00 Intake Total 2200 ml Output Total 3585 ml Balance -1385 ml Laboratory Data Labs 24H Laboratory Tests 2 07/02/18 06:02: Immature Granulocyte % (Auto) 0.4, White Blood Count 7.1, Red Blood Count 3.39L, Hemoglobin 9.7L, Hematocrit 29.7L, Mean Corpuscular Volume 87.6, Mean Corpuscular Hemoglobin 28.6, Mean Corpuscular Hemoglobin Concent 32.7, Red Cell Distribution Width 13.3, Platelet Count 194, Neutrophils (%) (Auto) 52.2, Lymphocytes (%) (Auto) 34.5, Monocytes (%) (Auto) 8.9H, Eosinophils (%) (Auto) 3.7H, Basophils (%) (Auto) 0.3, Neutrophils # (Auto) 3.7, Lymphocytes # (Auto) 2.4, Monocytes # (Auto) 0.6, Eosinophils # (Auto) 0.3, Basophils # (Auto) 0.0, Nucleated Red Blood Cells % (auto) 0.0, Anion Gap 4L, Glomerular Filtration Rate > 60.0, Blood Urea Nitrogen 8, Creatinine 0.73, Sodium Level 142, Potassium Level 4.0, Chloride Level 109H, Carbon Dioxide Level 29, Calcium Level 8.4L, C- Reactive Protein, Quantitative 3.07H CBC/BMP Laboratory Tests 07/02/18 06:02 Red Blood Count 3.39 L, Mean Corpuscular Volume 87.6, Mean Corpuscular Hemoglobin 28.6, Mean Corpuscular Hemoglobin Concent 32.7, Red Cell Distribution Width 13.3, Neutrophils (%) (Auto) 52.2, Lymphocytes (%) (Auto) 34.5, Monocytes (%) (Auto) 8.9 H, Eosinophils (%) (Auto) 3.7 H, Basophils (%) (Auto) 0.3, Neutrophils # (Auto) 3.7, Lymphocytes # (Auto) 2.4, Monocytes # (Auto) 0.6, Eosinophils # (Auto) 0.3, Basophils # (Auto) 0.0, Calcium Level 8.4 L Microbiology Microbiology 06/26/18 Wound Culture - Final, Resulted Escherichia Coli Lactobacillus Species 06/26/18 Anaerobic Culture, Resulted Pending Impression Impression POD6 sigmoid colon resection, colostomy for acute diverticulitis Ileus - resolved She looks to be doing better. Her ileus appears fully resolved at this point. I'll advance her diet. She will continue to work with our nurses with regards to getting the proper set up for her colostomy. Anticipate once this issue has resolved that she will be able to go home. 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 She will try to arrange for her nurses to come to the hospital to be instructed on how to care for the colostomy when she gets home. PLAN: abx switched to PO pathology consistent with diverticulitis - no malignancy found Advance to high fiber diet ostomy care teaching. Once patient comfortable with ostomy care, and the TRAVELING AUDITOR/nurses in [facility] who will take care of her have teaching with our nurses, I think she would be able to go home. d/c drain Plan / VTE VTE Prophylaxis Ordered?: No VTE Exclusion Mechanical Proph: Low Risk for VTE (patient ambulating well) Plan / Urinary Catheter Urinary Catheter: D/C ALEXANDER Peñaloza MD July 02, 2018 07:47
[2018-07-02] MEDS: SENOKOT S TAB PO SCH ×2 (08:24→21:09)
[2018-07-02] MEDS: LISINOPRIL 20 MG TAB PO SCH (08:25)
[2018-07-02] MEDS: PANTOPRAZOLE 40MG INJ (PROTONIX) (C9113) IV SCH (08:25)
[2018-07-02] MEDS: ERTAPENEM SODIUM 1 GM in NS MINI-BAG PLUS 50 ML IV SCH (14:05)
[2018-07-02] MEDS: ONDANSETRON 4MG/2ML VIAL (J2405) IV PRN (20:09)
[2018-07-02 22:00] VITALS: BP 140/72
[2018-07-03 06:00] VITALS: BP 151/72
[2018-07-03 06:52] LABS: BASO % 0.4 % (0.0-1.0); EOS # 0.3 10^3/uL (0.0-0.50); EOS % 4.3 % (0.0-3.0); HEMOGLOBIN 10.2 g/dl (12.0-15.5); LYMPH % 28.2 % (24.0-44.0); MEAN CORPUSCULAR HEMOGLOBIN 28.9 pg (27.0-33.0); MEAN CORPUSCULAR HGB CONC 32.9 g/dl (32.0-36.5); MEAN CORPUSCULAR VOLUME 87.8 fl (80.0-96.0); MONO # 0.6 10^3/uL (0.0-0.8); MONO % 8.3 % (0.0-5.0); NEUTROPHILS # 4.1 10^3/uL (1.8-7.7); NEUTROPHILS % 58.4 % (36.0-66.0); PLATELET COUNT, AUTOMATED 228 10^3/uL (150-450); RED BLOOD COUNT 3.53 10^6/uL (4.00-5.40)
[2018-07-03 07:21] LABS: BLOOD UREA NITROGEN 6 MG/DL (7-18); C REACTIVE PROTEIN QUANTITATIV 2.13 MG/DL (0.00-0.30); CARBON DIOXIDE LEVEL 31 MEQ/L (21-32); CHLORIDE LEVEL 107 MEQ/L (98-107); CREATININE FOR GFR 0.75 MG/DL (0.55-1.30); GLOMERULAR FILTRATION RATE > 60.0 (>45); GLUCOSE, FASTING 105 MG/DL (70-100); POTASSIUM SERUM 3.6 MEQ/L (3.5-5.1); SODIUM LEVEL 143 MEQ/L (136-145)
[2018-07-03 09:00] VITALS: BP 167/79
[2018-07-03] MEDS: LISINOPRIL 20 MG TAB PO SCH (09:04)
[2018-07-03] MEDS: SENOKOT S TAB PO SCH ×2 (09:05→20:40)
[2018-07-03] MEDS: PANTOPRAZOLE 40MG TAB (PROTONIX) PO SCH (09:07)
--- NOTE | 2018-07-03 09:27 | IPNPDOC ---
Text Note Date of Service The patient was seen on 07/03/18. NOTE No acute events overnight. Tolerating diet. Denies nausea, emesis, or fevers. The lower abd pain is gone with the drain removed. No other complaints. VSSAF NAD abd - soft, NT, ND, incisions c/d/i labs - below A) 67y/o female s/p sigmoid resection and ostomy creation for perforation P) reg diet PO pain control plan on d/c home once ostomy teaching is completed early this week. Chadwick Alejandre DO A-FIB/CHADSVASC A-FIB History Current/History of A-Fib/PAF?: No VS,Fishbone, I+O VS, Fishbone, I+O Laboratory Tests 07/03/18 06:30 Red Blood Count 3.53 L, Mean Corpuscular Volume 87.8, Mean Corpuscular Hemoglobin 28.9, Mean Corpuscular Hemoglobin Concent 32.9, Red Cell Distribution Width 13.4, Neutrophils (%) (Auto) 58.4, Lymphocytes (%) (Auto) 28.2, Monocytes (%) (Auto) 8.3 H, Eosinophils (%) (Auto) 4.3 H, Basophils (%) (Auto) 0.4, Neutrophils # (Auto) 4.1, Lymphocytes # (Auto) 2.0, Monocytes # (Auto) 0.6, Eosinophils # (Auto) 0.3, Basophils # (Auto) 0.0, Calcium Level 8.0 L Vital Signs Date Time Temp Pulse Resp B/P (MAP) Pulse Ox O2 Delivery O2 Flow Rate FiO2 07/03/18 09:04 167/79 07/03/18 06:00 98.7 70 19 94 06/30/18 14:00 Room Air 06/27/18 14:00 2.0 I&O- Last 24 Hours up to 6 AM 07/03/18 06:00 Intake Total 1520 ml Output Total 3970 ml Balance -2450 ml CHRISTOPHER ALEJANDRE DO July 03, 2018 09:27
[2018-07-03 13:01] VITALS: BP 152/18
[2018-07-03] MEDS: ERTAPENEM SODIUM 1 GM in NS MINI-BAG PLUS 50 ML IV SCH (13:04)
[2018-07-03 22:00] VITALS: BP 137/64
[2018-07-04 06:00] VITALS: BP 163/78
[2018-07-04] MEDS: LISINOPRIL 20 MG TAB PO SCH (08:31)
[2018-07-04] MEDS: SENOKOT S TAB PO SCH ×2 (08:31→20:41)
[2018-07-04] MEDS: PANTOPRAZOLE 40MG TAB (PROTONIX) PO SCH (08:31)
--- NOTE | 2018-07-04 09:13 | IPNPDOC ---
Text Note Date of Service The patient was seen on 07/04/18. NOTE No acute events overnight. Tolerating diet. Denies nausea, emesis, or fevers. No other complaints. VSSAF NAD abd - soft, NT, ND, incisions c/d/i labs - below A) 67y/o female s/p sigmoid resection and ostomy creation for perforation P) reg diet PO pain control plan on d/c home once ostomy teaching is completed possibly tomorrow Chadwick Alejandre DO A-FIB/CHADSVASC A-FIB History Current/History of A-Fib/PAF?: No VS,Fishbone, I+O VS, Fishbone, I+O Vital Signs Date Time Temp Pulse Resp B/P (MAP) Pulse Ox O2 Delivery O2 Flow Rate FiO2 07/04/18 08:31 163/78 07/04/18 06:00 97.6 80 18 98 06/30/18 14:00 Room Air I&O- Last 24 Hours up to 6 AM 07/04/18 06:00 Intake Total 2390 ml Output Total 3750 ml Balance -1360 ml CHRISTOPHER ALEJANDRE DO July 04, 2018 09:13
[2018-07-04 14:00] VITALS: BP 145/66
[2018-07-04 22:00] VITALS: BP 141/68
[2018-07-05 06:00] VITALS: BP 165/70
[2018-07-05 09:21] VITALS: BP 150/72
[2018-07-05] MEDS: PANTOPRAZOLE 40MG TAB (PROTONIX) PO SCH (09:21)
[2018-07-05] MEDS: LISINOPRIL 20 MG TAB PO SCH (09:21)
[2018-07-05] MEDS: SENOKOT S TAB PO SCH (09:21)
[2018-07-05] MEDS ORDERED: SENN-52 PO (12:52)
[2018-07-05] MEDS ORDERED: HYDR-4571 PO (12:52)
--- NOTE | 2018-07-05 12:59 | DS.PDOC ---
Discharge Summary General Date of Admission Date of Discharge 07/05/18 Attending Physician: ALEXANDER FAYE MD Discharge Summary PROCEDURES PERFORMED DURING STAY: Exploratory Laparotomy, Sigmoid Colon Resection, Colostomy with Ciro's pouch. ADMITTING DIAGNOSES: 1. perforated diverticulitis 2. rheumatoid arthritis. DISCHARGE DIAGNOSES: 1. perforated diverticulitis with abscess 2. rheumatoid arthritis. COMPLICATIONS/CHIEF COMPLAINT: Perforated Acute Diverticulitis. HISTORY OF PRESENT ILLNESS: . HOSPITAL COURSE: . DISCHARGE MEDICATIONS: Please see below. ALLERGIES: Please see below. PHYSICAL EXAMINATION ON DISCHARGE: VITAL SIGNS: Please see below. GENERAL: HEENT: NECK: CARDIOVASCULAR EXAMINATION: RESPIRATORY EXAMINATION: ABDOMINAL EXAMINATION: Slight rounded, nondistended, low midline incision with jennyfer intact. No erythema or drainage. Mild tender around lower part of the incision on palpation EXTREMITIES: Minimal LE edema, bilaterally SKIN: NEUROLOGICAL EXAMINATION: PSYCHIATRIC EXAMINATION: LABORATORY DATA: Please see below. IMAGING: CT abdomen and pelvis PROGNOSIS: ACTIVITY: [As tolerated]. DIET: high fiber diet DISCHARGE PLAN: [facility] has LPNs, nurses available to her in the [facility] to help her with colostomy care. She has received instructions (as well as some of the LPNs in the [facility]) how to take care of her new colostomy. DISPOSITION: . DISCHARGE INSTRUCTIONS: 1. Hold Humira 2. Follow up next week for symptom check, jenynfer removal ITEMS TO FOLLOWUP ON ON OUTPATIENT: 1. resume Humira 4 weeks postop 2. pathology: diverticulitis discussed with patient 3. needs colonoscopy setup prior to reversal DISCHARGE CONDITION: [Stable]. TIME SPENT ON DISCHARGE: Greater than minutes. Vital Signs/I&Os Vital Signs Date Time Temp Pulse Resp B/P (MAP) Pulse Ox O2 Delivery O2 Flow Rate FiO2 07/05/18 09:21 150/72 07/05/18 06:00 97.5 76 20 96 06/30/18 14:00 Room Air I&O- Last 24 Hours up to 6 AM 07/05/18 06:00 Intake Total 1680 ml Output Total 4400 ml Balance -2720 ml Microbiology Microbiology 06/26/18 Wound Culture - Final, Complete Escherichia Coli Lactobacillus Species 06/26/18 Anaerobic Culture - Final, Complete Clostridium Species Prevotella Intermedia Discharge Medications Scheduled Calcium Carbonate/Vitamin D3 (Calcium 500-Vit D3 400 Tablet) 1 Tab Tab, 1 TAB PO QPM, (Reported) Cholecalciferol (Vitamin D3) (Vitamin D3) 2,000 Unit Tab, 2,000 UNIT PO DAILY, (Reported) Esomeprazole Magnesium (Esomeprazole Magnesium Dr) 40 Mg Cap, 40 MG PO DAILY, (Reported) Hydroxychloroquine Sulfate (Hydroxychloroquine Sulfate) 200 Mg Tab, 200 MG PO BID, (Reported) Lisinopril (Lisinopril) 20 Mg Tab, 20 MG PO DAILY, (Reported) Multivitamins (Thera M Plus Tablet) 1 Tab Tab, 1 TAB PO DAILY, (Reported) Sennosides/Docusate Sodium (Senna Plus Tablet) 1 Each Tablet, 1 TAB PO DAILY Scheduled PRN Acetaminophen (Tylenol Arthritis) 650 Mg Tablet.er, 1,300 MG PO QHS PRN for PAIN, (Reported) Fluticasone Propionate (Fluticasone Propionate) 50 Mcg/Act Spr, 2 SPRAY NARES DAILY PRN for NASAL CONGESTION, (Reported) Hydrocodone/Acetaminophen (Hydrocodone-Acetamin 5-325 mg) 1 Each Tablet, 1-2 TAB PO Q4HP PRN for MILD/MODERATE PAIN (PS 1-7) Methyl Salicylate/Menthol (Icy Hot Cream) 35.4 Gm Cream..g., 1 APLCT TOP QHS PRN for PAIN, (Reported) Naproxen (Naproxen) 500 Mg Tab, 500 MG PO BID PRN for PAIN, (Reported) [Meli's Leg Cramps] , 2 TAB SL Q4H PRN for CRAMPS, (Reported) Allergies Coded Allergies: Penicillins (Verified Allergy, Severe, ULCERATED THROAT, 06/26/18) bacitracin (Verified Allergy, Intermediate, RASH, 06/25/18) celecoxib (Verified Allergy, Intermediate, RASH - CAN TAKE IBUPROFEN AND NAPROXEN, 06/26/18) neomycin (Verified Allergy, Intermediate, RASH, 06/25/18) polymyxin B (Verified Allergy, Intermediate, RASH , 06/25/18) ramipril (Verified Allergy, Intermediate, RASH, 06/26/18) Sulfa (Sulfonamide Antibiotics) (Verified Adverse Reaction, Mild, NAUSEA/VOMITING, 06/26/18) codeine (Verified Adverse Reaction, Mild, NAUSEA/VOMITING, 06/26/18) doxycycline (Verified Adverse Reaction, Mild, VOMITING, 06/26/18) ALEXANDER FAYE MD July 05, 2018 12:59
== END 2018-07-05 12:50 | disposition home or self-care (01) | DRG 331 ==
LOC: M ED 22:45 → M SDC 06-26 03:32 → M MS5PR 06-26 07:20 → M SDC 06-26 08:30 → M MS5PR 07-05 13:30 → M SDC 07-05 13:30
PROVIDERS: ADMIT Surgery; ATTEND Surgery
PROC: 0D1N0Z4 Bypass Sigmoid Colon to Cutaneous, Open Approach (ICD-10-PCS; 2018-06-26)
PROC: 0DBN0ZZ Excision of Sigmoid Colon, Open Approach (ICD-10-PCS; principal; 2018-06-26 03:00)
DX: K57.80 Diverticulitis of intestine, part unspecified, with perforation and abscess without bleeding (principal); M06.9 Rheumatoid arthritis, unspecified; Z88.0 Allergy status to penicillin; Z88.2 Allergy status to sulfonamides; Z88.5 Allergy status to narcotic agent; Z88.8 Allergy status to other drugs, medicaments and biological substances; Z79.899 Other long term (current) drug therapy; I10 Essential (primary) hypertension; J45.909 Unspecified asthma, uncomplicated; Z85.3 Personal history of malignant neoplasm of breast

== ENCOUNTER 2018-08-18 08:24 | Day surgery (SDC) | payer MEDICARE ==
[~2018-08-18] VITALS: Ht 166.4 cm; Wt 81.2 kg
[~2018-08-18 08:24] MED LIST changes: +HUMI40KI2 SC; +HYDR-4571 PO; +HYLAND'S LEG CRAMPS SL; +ICYCRE TOP; +META28.32 PO; +METR-265 PO; +NS 1,000 ML IV ONE; +SENN-52 PO; +TYLE650T35 PO
[2018-08-18] MEDS ORDERED: PROPOFOL 200 MG/20 ML VIAL As Ordered ONE (10:14)
--- NOTE | 2018-08-18 10:31 | ROOR ---
Patient Name: Suly Bhardwaj Procedure Date: 08/18/2018 9:56 AM Date of : 1950 Age: 68 Room: LTAC, [facility]IN [facility] Gender: Female Note Status: Finalized Procedure: Colonoscopy Indications: Preoperative assessment, Follow-up of diverticulitis Providers: Tyler Bain MD Referring MD: Konrad Olson MD Requesting Provider: Medicines: Monitored Anesthesia Care Complications: No immediate complications. Procedure: Pre-Anesthesia Assessment: - Prior to the procedure, a History and Physical was performed, and patient medications and allergies were reviewed. The patient is competent. The risks and benefits of the procedure and the sedation options and risks were discussed with the patient. All questions were answered and informed consent was obtained. Patient identification and proposed procedure were verified by the physician, the nurse and the anesthesiologist in the endoscopy suite. Mental Status Examination: alert and oriented. Airway Examination: normal oropharyngeal airway and neck mobility. Respiratory Examination: clear to auscultation. CV Examination: normal. Prophylactic Antibiotics: The patient does not require prophylactic antibiotics. Prior Anticoagulants: The patient has taken no previous anticoagulant or antiplatelet agents. ASA Grade Assessment: III - A patient with severe systemic disease. After reviewing the risks and benefits, the patient was deemed in satisfactory condition to undergo the procedure. The anesthesia plan was to use moderate sedation / analgesia (conscious sedation). Immediately prior to administration of medications, the patient was re-assessed for adequacy to receive sedatives. The heart rate, respiratory rate, oxygen saturations, blood pressure, adequacy of pulmonary ventilation, and response to care were monitored throughout the procedure. The physical status of the patient was re-assessed after the procedure. The Colonoscope was introduced through the sigmoid colostomy and advanced to the terminal ileum, with identification of the appendiceal orifice and IC valve. The colonoscopy was performed without difficulty. The patient tolerated the procedure well. The quality of the bowel preparation was excellent. Findings: Hemorrhoids were found on perianal exam. A few small-mouthed diverticula were found in the descending colon and transverse colon. The entire examined colon appeared normal on direct and retroflexion views. A scattered area of mildly friable mucosa with no bleeding was found in the rectum. Colonoscopy from anal verge to rectal stump to 27 cms, mild diversion mucositis/proctitis, no other lesions Impression: - Hemorrhoids found on perianal exam. - Diverticulosis in the descending colon and in the transverse colon. - The entire examined colon is normal on direct and retroflexion views. - No specimens collected. Recommendation: - Discharge patient to home (ambulatory). Tyler Bain MD Tyler Bain MD 08/18/2018 10:30:30 AM Electronically signed by Tyler Bain MD Number of Addenda: 0 Note Initiated On: 08/18/2018 9:56 AM Estimated Blood Loss: Estimated blood loss: none. Estimated blood loss: none.
[2018-08-18 10:40] VITALS: BP 150/73
== END 2018-08-18 10:51 | disposition home or self-care (01) ==
LOC: M OPP 08:24
PROVIDERS: ATTEND Surgery
DX: Z01.818 Encounter for other preprocedural examination (principal); Z87.19 Personal history of other diseases of the digestive system; K64.9 Unspecified hemorrhoids; K57.32 Diverticulitis of large intestine without perforation or abscess without bleeding; K57.30 Diverticulosis of large intestine without perforation or abscess without bleeding

== ENCOUNTER 2018-10-25 05:55 | Inpatient (IN) | payer MEDICARE ==
[~2018-10-25] VITALS: Ht 165.1 cm; Wt 82.0 kg
[2018-10-25] VITALS (8 sets, daily range): BP systolic 126–145; BP diastolic 61–70
[~2018-10-25 05:55] MED LIST changes: +BIOF4GEL4 EX; -NS 1,000 ML IV ONE
[2018-10-25] MEDS ORDERED: LIDOCAINE 1% MDV 20ML VIAL SQ PRN (06:00)
[2018-10-25] MEDS ORDERED: FLAG500T PO (06:45)
[2018-10-25] MEDS ORDERED: DESFLURANE 240 ML INHALANT As Ordered ONE (06:55)
[2018-10-25] MEDS ORDERED: CIPROFLOXACIN 400 MG in IV 1 EA IV ONE (07:00)
[2018-10-25] MEDS ORDERED: ALVIMOPAN 12 MG CAPSULE (ENTEREG) PO ONE (07:00)
[2018-10-25] MEDS ORDERED: HEPARIN SOD (PORCINE) 5000 UNITS/ML VIAL SQ ONE (07:00)
[2018-10-25] MEDS ORDERED: LR 1,000 ML IV ONE (07:00)
[2018-10-25] MEDS ORDERED: metroNIDAZOLE 500 MG in IV 1 EA IV ONE (07:00)
[2018-10-25] MEDS ORDERED: dexameTHASONE 4 MG/ML 1ML VIAL (J1100) As Ordered ONE (07:04)
[2018-10-25] MEDS ORDERED: ONDANSETRON 4MG/2ML VIAL (J2405) As Ordered ONE (07:04)
[2018-10-25] MEDS ORDERED: LIDOCAINE 2% INJ 100 MG/5 ML SDV (FOR ANES.) As Ordered ONE (07:04)
[2018-10-25] MEDS ORDERED: propofoL 200 MG/20 ML VIAL As Ordered ONE (07:04)
[2018-10-25] MEDS ORDERED: KETOROLAC 60 MG/2 ML VIAL (J1885) As Ordered ONE (07:04)
[2018-10-25] MEDS ORDERED: ROCURONIUM BROMIDE 50 MG/5 ML VIAL As Ordered ONE ×3 (07:04→11:46)
[2018-10-25] MEDS ORDERED: fentaNYL 250 MCG/5 ML INJECTION (J3010) As Ordered ONE (07:05)
[2018-10-25] MEDS ORDERED: MIDAZOLAM INJ 2 MG/2 ML VIAL (J2250) As Ordered ONE (07:05)
[2018-10-25] MEDS ORDERED: LIDOCAINE 1% SDV INJ 30 ML VIAL As Ordered ONE (07:12)
[2018-10-25] MEDS ORDERED: BUPIVACAINE HCL 0.25% 30 ML VIAL As Ordered ONE (07:12)
[2018-10-25] MEDS ORDERED: ePHEDrine SULFATE 25 MG/5 ML(5MG/ML) SYRINGE As Ordered ONE ×2 (08:27→09:02)
[2018-10-25] MEDS ORDERED: PHENYLephrine HCL 500 MCG/5 ML (100MCG/ML) SYRINGE (J2370) As Ordered ONE (08:27)
[2018-10-25] MEDS ORDERED: SCOPOLAMINE 1MG TRANSDERMAL PATCH As Ordered ONE (08:28)
[2018-10-25] MEDS ORDERED: SCOPOLAMINE 1MG TRANSDERMAL PATCH TOP SCH (09:00)
[2018-10-25] MEDS ORDERED: SUGAMMADEX SODIUM 500 MG/5 ML VIAL (BRIDION) As Ordered ONE (09:48)
[2018-10-25] MEDS ORDERED: HYDROmorphone HCL 2 MG/ML 1ML VIAL (J1170) As Ordered ONE (10:17)
[2018-10-25] MEDS ORDERED: MORPHINE 4 MG/ML 1ML VIAL/SYRINGE (J2270) IV PRN (12:30)
[2018-10-25] MEDS ORDERED: KETOROLAC 30 MG/ML VIAL (J1885) IV PRN (12:30)
[2018-10-25] MEDS ORDERED: FLUTICASONE PROP 0.05% NASAL SPRAY 16 GM (FLONASE) NARES PRN (12:30)
[2018-10-25] MEDS ORDERED: NORCO, ANEXSIA 5/325MG TABLET (HYDROcodone/ACETAMINOPHEN) PO PRN (12:30)
[2018-10-25] MEDS ORDERED: ONDANSETRON 4MG/2ML VIAL (J2405) IV PRN ×2 (12:30→12:45)
[2018-10-25] MEDS ORDERED: fentaNYL 100 MCG/2 ML INJECTION (J3010) IV PRN (12:45)
[2018-10-25] MEDS ORDERED: PERCOCET 5MG/325MG TAB PO PRN (12:45)
[2018-10-25] MEDS ORDERED: LR 1,000 ML IV SCH (12:45)
--- NOTE | 2018-10-25 13:06 | ROOPDOC ---
[facility] Report Of Operation Report of Operation DATE OF PROCEDURE: 10/25/18 PREPROCEDURE DIAGNOSES: history of perforated diverticulitis, colostomy status. POSTPROCEDURE DIAGNOSES: same. PROCEDURE: Robotic Assisted Laparoscopic Colostomy reversal with proctocolic anastomosis, extensive lysis of adhesiosn. SURGEON: Tyler Bain MD PICKING CREW SUPERVISOR: Miladis Keating NP and DO Miss Rishabh Arroyo assisted me throughout the case with placement of the ports, management of the instruments, robotic arm adjustments, suctioning, and bowel retraction, and closure of the incision Dr. Alejandre came in to help with the bowel extraction, closure of the colostomy site, in performance of the transrectal end to end proctocolic anastomosis, flexible sigmoidoscopy. ANESTHESIA: General Anesthesia. ESTIMATED BLOOD LOSS: Approximately 50 mL. COMPLICATIONS: none. REMARKS: 68 F with history of perforated diverticulitis underwent sigmoid colon resection and colostomy. PROCEDURE NOTE: multiple adhesions of omentum and small bowel to the anterior abdominal wall, pelvis, colostomy lysed sharply. 29 EEA stapler used for end to end proctocolic anastomosis, tested underwater and visualized with flexible sigmoidoscope. DESCRIPTION OF PROCEDURE: . Patient received ciprofloxacin 500 mg IV, metronidazole 500 mg IV for wound prophylaxis, Entereg 12 mg by mouth, heparin 5000 units subcutaneously for DVT prophylaxis. She was brought to the operating room and placed initially supine on the table. Teds and sequential compression boots were placed in both lower extremities for added DVT prophylaxis. Gen. endotracheal anesthesia started. She was placed in the lithotomy position on Geoff stirrups. A Burgess catheter was placed for urine output monitoring. Her abdomen and perineal area were widely prepped and draped in usual sterile fashion.We paused for a surgical timeout using both pre-incision safety checklist to verify correct patient, procedure site and additional clinical information prior to beginning the procedure. I initially tried to enter through a right upper quadrant incision for a Veress needle entry. I cannot confirm intra-abdominal placement so I switched to a left upper quadrant Veress needle entry. I placed is close to a safe his sternum for anticipated placement of one of the robotic ports. Entry was much easier here. Position of the Veress needle confirmed with saline drop technique. CO2 insufflation started to pressure 15 mmHg. Using the same incision a 5 mm optical port was placed under direct vision of a laparoscope. Insertion site as well as the initial right upper quadrant incision site was inspected for injury and none was found. She was placed on a steep Trendelenburg position roughly about 20 with her right side tilted up. In oblique fashion from the first port towards the anterior superior iliac spine and about 10 cm apart 3 other 8 mm robotic ports were placed. On entry into the abdomen multiple adhesions of the omentum is immediately noted. The pelvis and rectal stump was not easily visualized due to the amount of small bowel occupying the pelvis. There was also some omental and small bowel adhesions to the colostomy. There is surrounding the colostomy a small peristomal fascial defect. The da Marcial robot tower was maneuvered into place and the trochars docked to the tower. A Separate grasper, forced bipolar grasper, 8 mm angled robotic laparoscopic and robotic scissors connected to a monopolar cautery was used for the most of the procedure. The vessel sealer was also used towards the end of the procedure. An scrub to control of the robotic camera and instruments at the surgeon's console. Under direct visualization the omental adhesions to the anterior abdominal wall were lysed with the scissors connected to the monopolar cautery and this was reflected upwards to the left upper quadrant area. The small bowel adhesion to the colostomy was then divided sharply without any energy to bring this away from the colostomy. There is a good amount of small bowel adherent also to the left lateral sidewall and identified to work on this and proceeded working and following the bowel loops to the pelvis. Next the adhesions to the right anterolateral abdominal wall and right side of the pelvis were worked up on in a similar fashion. After all the bowel adhesions were released bowels were then displaced away from the pelvis. The Prolene sutures were located and the remaining adhesions of the rectal stump to the pelvis as well as to the uterus were then divided to straighten out the rectal stump which was slightly pulled down and towards the right side of the pelvis. The epiploic fat around the rectal stump was divided with electrocautery to prepare the stump for reanastomosis. At this point I then worked on the remainder of the omental attachments to the colostomy and this was divided now using the vessel sealer and I further divided the omental adhesions to the left, descending colon. The remaining attachments of the descending colon to the anterior abdominal wall was opened up along the white line of Toldt and the descending colon was mobilized from its lateral and posterior attachments at the Gen.'s fascia up to and near the splenic flexure with splenic flexure remain in place as I feel that there should be an adequate length on the remaining descending colon. The epiploic appendage as well as the mesenteric attachments of the colon around the colostomy stump was also divided to prepare for the takedown of the colostomy. At this point I scrubbed back in and Dr. Alejandre was then made available to help me with the rest of the colostomy takedown in the anastomosis. An elliptical skin incision was created with a rim of normal skin around the colostomy and this is taken deep through to the subcutaneous tissue and the fascial attachments circumferentially to free up the colostomy. Most of the dissection and side has already been done laparoscopically. The colostomy was exteriorized and he chose a healthy portion of the colon just underneath the superficial subcutaneous portion of the colostomy and open this up with Bovie cautery. EEA sizers were then used and the type pain millimeters EEA stapler was chosen. This was inserted in through to the colostomy opening. I then used a 75 mm KATHRYN stapler with a blue load to close the colostomy and the anvil was pushed out towards with the spike anterior to the staple line. The spike was removed. The opening created by the anvil was secured to the colon with 2-0 Vicryl circumferentially placed. The minimal leftover epiploic appendage and excess mesentery was removed to prepare this and for the anastomosis. This was replaced back in the abdomen. The fascial opening of the colostomy site is noted to be starting to form a hernia was then closed with 0 PDS in a mattress fashion. Laparoscopy was resumed with insufflation of the abdomen. The robot was docked back to the trochars and I unscrubbed and returned to the surgeon's console. The proximal colon was returned to the pelvis and the remaining lateral and posterior attachments of the descending colon was divided and bluntly dissected to allow for the colon to lay on the top of the pelvis without any tension. Dr. Alejandre then came down and inserted the EEA sizers transrectally to visually approximate the 2 ends together. There was some slight narrowing at the midportion of the rectum which was straightened out. The EEA stapler was then advanced to the end of the rectal stump and the spiked passed through the colon. The anvil and the stapler was engaged making sure the colon mesentery was not twisted. This was then fired and the donuts checked and noted to be intact on both ends. The anastomosis was tested under water also with ICG floor since and noted to be adequately perfusing. The flexible sigmoidoscope is used to visualize the anastomosis and no bleeding noted and the anastomosis or visually healthy. The anastomosis was insufflated and no leakage was noted. The irrigant we used for testing was suctioned off. At this point Dr. Alejandre was excused. I then scrubbed back in the abdomen was deflated all ports were removed to the subcutaneous tissue at the colostomy site was closed to close the space to avoid seroma. The skin incisions were then closed with jennyfer. Patient tolerated the procedure well she was promptly awakened, extubated and brought to recovery room in stable condition. TYLER BAIN MD Oct 25, 2018 13:06
[2018-10-25] MEDS: LR 1,000 ML IV SCH ×2 (13:30→23:03)
[2018-10-25] MEDS ORDERED: IRRIGATION OPHTH SOLN (EYE WASH) 120ML OD PRN (14:00)
[2018-10-25] MEDS ORDERED: NS 500 ML IV ONE (18:30)
[2018-10-25] MEDS ORDERED: SCOPOLAMINE 1MG TRANSDERMAL PATCH TOP ONE (20:00)
[2018-10-25] MEDS: HEPARIN SOD (PORCINE) 5000 UNITS/ML VIAL SC SCH (21:59)
[2018-10-25] MEDS: HYDROXYCHLOROQUINE 200 MG TAB PO SCH (21:59)
[2018-10-25] MEDS: SENOKOT S TAB PO SCH (21:59)
[2018-10-25] MEDS: CALCIUM/VITAMIN D 500 MG TAB PO SCH (21:59)
[2018-10-25] MEDS: ALVIMOPAN 12 MG CAPSULE (ENTEREG) PO SCH (21:59)
[2018-10-25] MEDS: POLYVINYL ALCOHOL OPHTH SOLN 15 ML(LIQUITEARS) OD PRN (21:59)
[2018-10-26] MEDS: HEPARIN SOD (PORCINE) 5000 UNITS/ML VIAL SC SCH ×3 (05:16→21:11)
[2018-10-26] MEDS: POLYVINYL ALCOHOL OPHTH SOLN 15 ML(LIQUITEARS) OD PRN ×2 (05:17→20:35)
[2018-10-26 06:00] VITALS: BP 119/69
[2018-10-26 06:11] LABS: BASO % 0.2 % (0.0-1.0); HEMATOCRIT 29.4 % (36.0-47.0); HEMOGLOBIN 9.8 g/dl (12.0-15.5); LYMPH % 11.1 % (24.0-44.0); MEAN CORPUSCULAR HEMOGLOBIN 29.1 pg (27.0-33.0); MEAN CORPUSCULAR HGB CONC 33.3 g/dl (32.0-36.5); MEAN CORPUSCULAR VOLUME 87.2 fl (80.0-96.0); NEUTROPHILS # 7.1 10^3/uL (1.5-8.5); NEUTROPHILS % 77.4 % (36.0-66.0); PLATELET COUNT, AUTOMATED 178 10^3/uL (150-450); RED BLOOD COUNT 3.37 10^6/uL (4.00-5.40); WHITE BLOOD COUNT 9.2 10^3/uL (4.0-10.0)
[2018-10-26 06:33] LABS: CALCIUM LEVEL 8.3 MG/DL (8.8-10.2); CREATININE FOR GFR 1.07 MG/DL (0.55-1.30); GLOMERULAR FILTRATION RATE 54.3 (>45)
[2018-10-26] MEDS: LR 1,000 ML IV SCH ×2 (07:03→15:15)
--- NOTE | 2018-10-26 08:32 | IPNPDOC ---
Subjective General Date/Time Seen The patient was seen on 10/26/18 at 08:31. Subject Chief Complaint/History The patient is a 68-year-old female admitted with a reason for visit of History Of Perforated Diverticulitis. Patient reports she is fairly comfortable, reports bloating but denies any nausea. She's been hemodynamically stable postoperatively. She is complaining of left shoulder pain. She had prior problems with chronic left shoulder pain. Current Medications Current Medications Current Medications Medications (Trade) Dose Ordered Sig/Elena Route PRN Reason Start Time Stop Time Status Last Admin Dose Admin Acetaminophen (Tylenol Tab) 650 mg Q4HP PRN PO MILD PAIN or TEMP > 101 10/25/18 12:30 Acetaminophen/ Hydrocodone Bitart (Timewell, Anexsia 5/325) 1 tab Q4HP PRN PO MODERATE PAIN (PS 5-7) 10/25/18 12:30 Acetaminophen/ Hydrocodone Bitart (Timewell, Anexsia 5/325) 2 tab Q6HP PRN PO SEVERE PAIN (PS 8-10) 10/25/18 12:30 10/26/18 05:17 Alvimopan (Entereg) 12 mg BID PO 10/25/18 21:00 11/01/18 20:59 10/25/18 21:59 Artificial Tears (Akwa Tears) 2 drop Q1HP PRN OD IRRITATION 10/25/18 19:45 10/26/18 05:17 Calcium/Vitamin D (Oscal D) 500 mg QPM PO 10/25/18 21:00 10/25/18 21:59 Eye Irrigation Solution (Eye Stream) FLUSH AFFECTED EYE ASDIRECTED PRN OD DISCOMFORT 10/25/18 14:00 10/25/18 16:00 DC Fentanyl Citrate (Sublimaze) 25 mcg Q5MP PRN IV MODERATE PAIN (PS 4-7) 10/25/18 12:45 10/25/18 13:45 DC Fluticasone Propionate (Flonase 0.05% Nasal [place]) 2 SPRAYS IN EACH NOSTRIL DAILY PRN NARES NASAL CONGESTION 10/25/18 12:30 Heparin Sodium (Porcine) (Heparin) 5,000 units Q8H SC 10/25/18 22:00 10/26/18 05:16 Hydroxychloroquine Sulfate (Plaquenil) 200 mg BID PO 10/25/18 21:00 10/25/18 21:59 Ketorolac Tromethamine (ToRADol) 30 mg Q6HP PRN IV MILD/MODERATE PAIN (PS 1-7) 10/25/18 12:30 10/30/18 12:29 Lactated Ringer's 1,000 ml @ 80 mls/hr [id number] IV 10/25/18 12:45 10/25/18 13:45 DC Lactated Ringer's 1,000 ml @ 125 mls/hr Q8H IV 10/25/18 12:30 10/26/18 07:03 Lidocaine HCl (LIDOCAINE 1% MDV 20ml) 0.1 ml ONCE PRN SQ DISCOMFORT BEFORE IV START 10/25/18 06:00 10/25/18 12:39 DC Lisinopril (Prinivil) 20 mg DAILY PO 10/26/18 09:00 Morphine Sulfate (Morphine Sulfate Inj) 4 mg Q2HP PRN IV SEVERE PAIN (PS 8-10) 10/25/18 12:30 Ondansetron HCl (ZOFRAN INJection) 4 mg Q4HP PRN IV NAUSEA OR VOMITING 10/25/18 12:45 10/25/18 13:45 DC Ondansetron HCl (ZOFRAN INJection) 4 mg Q6HP PRN IV NAUSEA OR VOMITING 10/25/18 12:30 Oxycodone/ Acetaminophen (Percocet 5mg/ 325mg Tablet) 1 tab ASDIRECTED PRN PO MILD/MODERATE PAIN (PS 1-7) 10/25/18 12:45 10/25/18 13:45 DC Psyllium Hydrophilic Mucilloid (Metamucil) 1 pkt DAILY PO 10/26/18 09:00 Scopolamine (Scopolamine) 1 mg Q72H TOP 10/25/18 09:00 10/25/18 14:12 DC Senna/Docusate Sodium (Senokot S) 1 tab BID PO 10/25/18 21:00 10/25/18 21:59 Allergies Coded Allergies: Penicillins (Verified Allergy, Severe, ULCERATED THROAT, 10/14/18) bacitracin (Verified Allergy, Intermediate, RASH, 10/14/18) celecoxib (Verified Allergy, Intermediate, RASH - CAN TAKE IBUPROFEN AND NAPROXEN, 10/14/18) neomycin (Verified Allergy, Intermediate, RASH, 10/14/18) polymyxin B (Verified Allergy, Intermediate, RASH , 10/14/18) ramipril (Verified Allergy, Intermediate, RASH, 10/14/18) Sulfa (Sulfonamide Antibiotics) (Verified Adverse Reaction, Mild, NAUSEA/VOMITING, 10/14/18) codeine (Verified Adverse Reaction, Mild, NAUSEA/VOMITING, 10/14/18) doxycycline (Verified Adverse Reaction, Mild, VOMITING, 10/14/18) Objective Physical Examination Examination GENERAL APPEARANCE:Patient seen, laying in bed, awake, alert, and oriented. Comfortable, in no acute distress. SKIN: Warm and moist. HEENT: Normocephalic, atraumatic. [place] palpebral conjunctiva, anicteric sclerae. Lips and mucosa appear moist. NECK: Supple, no thyromegaly. No obvious jugular venous distention. LUNGS: Clear to auscultation bilaterally. No wheezing appreciated. HEART: No chest wall abnormalities. Regular rate and rhythm with no murmurs appreciated. ABDOMEN: Abdomen is mildly obese, soft, still moderately distended. Laparoscopic port sites dressings are clean, dry and intact. The colostomy site dressing is relatively clean with minimal staining. Mild tenderness all over without any guarding.. EXTREMITIES: Extremities have no deformities. No edema identified. Vital Signs Vital Signs Date Time Temp Pulse Resp B/P (MAP) Pulse Ox O2 Delivery O2 Flow Rate FiO2 10/26/18 06:00 97.6 69 17 119/69 (86) 98 10/25/18 12:45 2 I&Os I&O- Last 24 Hours up to 6 AM 10/26/18 06:00 Intake Total 5050 ml Output Total 650 ml Balance 4400 ml Laboratory Data Labs 24H Laboratory Tests 2 10/26/18 05:52: Immature Granulocyte % (Auto) 0.3, White Blood Count 9.2, Red Blood Count 3.37L, Hemoglobin 9.8L, Hematocrit 29.4L, Mean Corpuscular Volume 87.2, Mean Corpuscular Hemoglobin 29.1, Mean Corpuscular Hemoglobin Concent 33.3, Red Cell Distribution Width 12.6, Platelet Count 178, Neutrophils (%) (Auto) 77.4H, Lymphocytes (%) (Auto) 11.1L, Monocytes (%) (Auto) 11.0H, Eosinophils (%) (Auto) 0.0, Basophils (%) (Auto) 0.2, Neutrophils # (Auto) 7.1, Lymphocytes # (Auto) 1.0L, Monocytes # (Auto) 1.0H, Eosinophils # (Auto) 0.0, Basophils # (Auto) 0.0, Nucleated Red Blood Cells % (auto) 0.0, Anion Gap 10, Glomerular Filtration Rate 54.3, Blood Urea Nitrogen 22H, Creatinine 1.07, Sodium Level 136, Potassium Level 4.0, Chloride Level 104, Carbon Dioxide Level 22, Calcium Level 8.3L CBC/BMP Laboratory Tests 10/26/18 05:52 Red Blood Count 3.37 L, Mean Corpuscular Volume 87.2, Mean Corpuscular Hemoglobin 29.1, Mean Corpuscular Hemoglobin Concent 33.3, Red Cell Distribution Width 12.6, Neutrophils (%) (Auto) 77.4 H, Lymphocytes (%) (Auto) 11.1 L, Monocytes (%) (Auto) 11.0 H, Eosinophils (%) (Auto) 0.0, Basophils (%) (Auto) 0.2, Neutrophils # (Auto) 7.1, Lymphocytes # (Auto) 1.0 L, Monocytes # (Auto) 1.0 H, Eosinophils # (Auto) 0.0, Basophils # (Auto) 0.0, Calcium Level 8.3 L Impression Postop day 1 robotic-assisted laparoscopic colostomy reversal for prior history of perforated acute diverticulitis I will continue her on clear liquids. She still looks distended to me. Instructed her to try to ambulate to hallways and take deep breathing exercises and incentive spirometer is today. Her Burgess catheter will be discontinued. Heparin for DVT prophylaxis. She is complaining of left shoulder pain we'll add Toradol is scheduled manner to help with this. 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 Plan / VTE VTE Prophylaxis Ordered?: Yes ALEXANDER FAYE MD Oct 26, 2018 08:32
[2018-10-26] MEDS: SENOKOT S TAB PO SCH ×2 (09:09→21:11)
[2018-10-26] MEDS: PANTOPRAZOLE 40MG TAB (PROTONIX) PO SCH (09:09)
[2018-10-26] MEDS: ALVIMOPAN 12 MG CAPSULE (ENTEREG) PO SCH ×2 (09:09→21:11)
[2018-10-26] MEDS: METAMUCIL (PSYLLIUM) PACKET PO SCH (09:09)
[2018-10-26] MEDS: HYDROXYCHLOROQUINE 200 MG TAB PO SCH ×2 (09:09→21:11)
[2018-10-26] MEDS: lisinopriL 20 MG TAB PO SCH (09:11)
[2018-10-26 14:00] VITALS: BP 118/55
[2018-10-26] MEDS: NORCO, ANEXSIA 5/325MG TABLET (HYDROcodone/ACETAMINOPHEN) PO PRN (21:13)
[2018-10-26] MEDS: CALCIUM/VITAMIN D 500 MG TAB PO SCH (21:14)
[2018-10-26 22:00] VITALS: BP 117/56
[2018-10-27] MEDS: LR 1,000 ML IV SCH ×2 (01:46→04:20)
[2018-10-27] MEDS: ACETAMINOPHEN TAB 650MG DOSE (2X325MG) PO PRN (04:20)
[2018-10-27 05:56] LABS: BASO # 0.1 10^3/uL (0.0-0.2); BASO % 0.6 % (0.0-1.0); EOS # 0.1 10^3/uL (0.0-0.5); EOS % 1.8 % (0.0-3.0); HEMATOCRIT 30.7 % (36.0-47.0); HEMOGLOBIN 10.1 g/dl (12.0-15.5); LYMPH # 1.1 10^3/uL (1.5-5.0); LYMPH % 14.2 % (24.0-44.0); MEAN CORPUSCULAR HEMOGLOBIN 28.5 pg (27.0-33.0); MEAN CORPUSCULAR HGB CONC 32.9 g/dl (32.0-36.5); MEAN CORPUSCULAR VOLUME 86.7 fl (80.0-96.0); MONO # 0.8 10^3/uL (0.0-0.8); MONO % 10.5 % (0.0-5.0); NEUTROPHILS # 5.7 10^3/uL (1.5-8.5); NEUTROPHILS % 72.4 % (36.0-66.0); PLATELET COUNT, AUTOMATED 183 10^3/uL (150-450); RED BLOOD COUNT 3.54 10^6/uL (4.00-5.40); WHITE BLOOD COUNT 7.8 10^3/uL (4.0-10.0)
[2018-10-27 06:00] VITALS: BP 114/60
[2018-10-27 06:10] LABS: BLOOD UREA NITROGEN 13 MG/DL (7-18); CALCIUM LEVEL 9.2 MG/DL (8.8-10.2); CARBON DIOXIDE LEVEL 26 MEQ/L (21-32); CHLORIDE LEVEL 108 MEQ/L (98-107); CREATININE FOR GFR 0.95 MG/DL (0.55-1.30); GLOMERULAR FILTRATION RATE > 60.0 (>45); GLUCOSE, FASTING 107 MG/DL (70-100); SODIUM LEVEL 141 MEQ/L (136-145)
[2018-10-27] MEDS: HEPARIN SOD (PORCINE) 5000 UNITS/ML VIAL SC SCH ×3 (06:21→21:55)
[2018-10-27] MEDS: POLYVINYL ALCOHOL OPHTH SOLN 15 ML(LIQUITEARS) OD PRN ×2 (06:24→21:55)
--- NOTE | 2018-10-27 07:45 | IPNPDOC ---
Subjective General Date/Time Seen The patient was seen on 10/27/18 at 07:44. Subject Chief Complaint/History The patient is a 68-year-old female admitted with a reason for visit of History Of Perforated Diverticulitis. Patient overall is doing well. She complains of minimal discomfort over the previous ostomy site, moderate discomfort from the left shoulder which seems baseline for her. She reports history of hurting that shoulder remotely. She is passing flatus but no bowel movements yet. She denies nausea, bloating or vomiting. She still reports poor to fair appetite. Current Medications Current Medications Current Medications Medications (Trade) Dose Ordered Sig/Elena Route PRN Reason Start Time Stop Time Status Last Admin Dose Admin Acetaminophen (Tylenol Tab) 650 mg Q4HP PRN PO MILD PAIN or TEMP > 101 10/25/18 12:30 10/27/18 04:20 Acetaminophen/ Hydrocodone Bitart ([place], Anexsia 5/325) 1 tab Q4HP PRN PO MODERATE PAIN (PS 5-7) 10/25/18 12:30 10/26/18 21:13 Acetaminophen/ Hydrocodone Bitart ([place], Anexsia 5/325) 2 tab Q6HP PRN PO SEVERE PAIN (PS 8-10) 10/25/18 12:30 10/26/18 05:17 Alvimopan (Entereg) 12 mg BID PO 10/25/18 21:00 11/01/18 20:59 10/26/18 21:11 Artificial Tears (Akwa Tears) 2 drop Q1HP PRN OD IRRITATION 10/25/18 19:45 10/27/18 06:24 Calcium/Vitamin D (Oscal D) 500 mg QPM PO 10/25/18 21:00 10/26/18 21:14 Eye Irrigation Solution (Eye Stream) FLUSH AFFECTED EYE ASDIRECTED PRN OD DISCOMFORT 10/25/18 14:00 10/25/18 16:00 DC Fentanyl Citrate (Sublimaze) 25 mcg Q5MP PRN IV MODERATE PAIN (PS 4-7) 10/25/18 12:45 10/25/18 13:45 DC Fluticasone Propionate (Flonase 0.05% Nasal [place]) 2 SPRAYS IN EACH NOSTRIL DAILY PRN NARES NASAL CONGESTION 10/25/18 12:30 Heparin Sodium (Porcine) (Heparin) 5,000 units Q8H SC 10/25/18 22:00 10/27/18 06:21 Hydroxychloroquine Sulfate (Plaquenil) 200 mg BID PO 10/25/18 21:00 10/26/18 21:11 Ketorolac Tromethamine (ToRADol) 30 mg Q6H IV 10/27/18 13:00 11/01/18 12:59 Ketorolac Tromethamine (ToRADol) 30 mg Q6HP PRN IV MILD/MODERATE PAIN (PS 1-7) 10/25/18 12:30 10/26/18 12:35 DC Lactated Ringer's 1,000 ml @ 75 mls/hr [id number] IV 10/25/18 12:30 10/27/18 06:06 DC 10/27/18 04:20 Lactated Ringer's 1,000 ml @ 80 mls/hr [id number] IV 10/25/18 12:45 10/25/18 13:45 DC Lidocaine HCl (LIDOCAINE 1% MDV 20ml) 0.1 ml ONCE PRN SQ DISCOMFORT BEFORE IV START 10/25/18 06:00 10/25/18 12:39 DC Lisinopril (Prinivil) 20 mg DAILY PO 10/26/18 09:00 10/26/18 09:11 Morphine Sulfate (Morphine Sulfate Inj) 4 mg Q2HP PRN IV SEVERE PAIN (PS 8-10) 10/25/18 12:30 Ondansetron HCl (ZOFRAN INJection) 4 mg Q4HP PRN IV NAUSEA OR VOMITING 10/25/18 12:45 10/25/18 13:45 DC Ondansetron HCl (ZOFRAN INJection) 4 mg Q6HP PRN IV NAUSEA OR VOMITING 10/25/18 12:30 Oxycodone/ Acetaminophen (Percocet 5mg/ 325mg Tablet) 1 tab ASDIRECTED PRN PO MILD/MODERATE PAIN (PS 1-7) 10/25/18 12:45 10/25/18 13:45 DC Pantoprazole Sodium (Protonix) 40 mg DAILY PO 10/26/18 09:00 10/26/18 09:09 Psyllium Hydrophilic Mucilloid (Metamucil) 1 pkt DAILY PO 10/26/18 09:00 10/26/18 09:09 Scopolamine (Scopolamine) 1 mg Q72H TOP 10/25/18 09:00 10/25/18 14:12 DC Senna/Docusate Sodium (Senokot S) 1 tab BID PO 10/25/18 21:00 10/26/18 21:11 Allergies Coded Allergies: Penicillins (Verified Allergy, Severe, ULCERATED THROAT, 10/14/18) bacitracin (Verified Allergy, Intermediate, RASH, 10/14/18) celecoxib (Verified Allergy, Intermediate, RASH - CAN TAKE IBUPROFEN AND NAPROXEN, 10/14/18) neomycin (Verified Allergy, Intermediate, RASH, 10/14/18) polymyxin B (Verified Allergy, Intermediate, RASH , 10/14/18) ramipril (Verified Allergy, Intermediate, RASH, 10/14/18) Sulfa (Sulfonamide Antibiotics) (Verified Adverse Reaction, Mild, N AUSEA/VOMITING, 10/14/18) codeine (Verified Adverse Reaction, Mild, NAUSEA/VOMITING, 10/14/18) doxycycline (Verified Adverse Reaction, Mild, VOMITING, 10/14/18) Objective Physical Examination Examination GENERAL APPEARANCE: Looks comfortable. SKIN: Warm and dry. HEENT: Normocephalic, atraumatic. [place] palpebral conjunctiva, anicteric sclerae. Lips and mucosa appear moist. NECK: Supple, no thyromegaly. No obvious jugular venous distention. LUNGS: Clear to auscultation bilaterally. No wheezing appreciated. HEART: No chest wall abnormalities. Regular rate and rhythm with no murmurs appreciated. ABDOMEN: Abdomen is obese, soft, minimally distended, minimally tympanitic to percussion. I removed the dressings over the ostomy site and this looks clean without any drainage. . I removed the [place] dressings in between the staple lines. Rest of the port site dressings seems dry, without staining. Abdomen is a benign and nondistended. Minimally tender around where the ostomy site was. EXTREMITIES: Extremities have no deformities. No edema identified. Vital Signs Vital Signs Date Time Temp Pulse Resp B/P (MAP) Pulse Ox O2 Delivery O2 Flow Rate FiO2 10/27/18 06:00 97.3 96 16 114/60 (78) 100 10/25/18 12:45 2 I&Os I&O- Last 24 Hours up to 6 AM 10/27/18 06:00 Intake Total 4260 ml Output Total 4550 ml Balance -290 ml Laboratory Data Labs 24H Laboratory Tests 2 10/27/18 05:20: Immature Granulocyte % (Auto) 0.5, White Blood Count 7.8, Red Blood Count 3.54L, Hemoglobin 10.1L, Hematocrit 30.7L, Mean Corpuscular Volume 86.7, Mean Corpuscular Hemoglobin 28.5, Mean Corpuscular Hemoglobin Concent 32.9, Red Cell Distribution Width 12.8, Platelet Count 183, Neutrophils (%) (Auto) 72.4H, Lymphocytes (%) (Auto) 14.2L, Monocytes (%) (Auto) 10.5H, Eosinophils (%) (Auto) 1.8, Basophils (%) (Auto) 0.6, Neutrophils # (Auto) 5.7, Lymphocytes # (Auto) 1.1L, Monocytes # (Auto) 0.8, Eosinophils # (Auto) 0.1, Basophils # (Auto) 0.1, Nucleated Red Blood Cells % (auto) 0.0, Anion Gap 7L, Glomerular Filtration Rate > 60.0, Blood Urea Nitrogen 13, Creatinine 0.95, Sodium Level 141, Potassium Level 4.0, Chloride Level 108H, Carbon Dioxide Level 26, Calcium Level 9.2 CBC/BMP Laboratory Tests 10/27/18 05:20 Red Blood Count 3.54 L, Mean Corpuscular Volume 86.7, Mean Corpuscular Hemoglobin 28.5, Mean Corpuscular Hemoglobin Concent 32.9, Red Cell Distribution Width 12.8, Neutrophils (%) (Auto) 72.4 H, Lymphocytes (%) (Auto) 14.2 L, Monocytes (%) (Auto) 10.5 H, Eosinophils (%) (Auto) 1.8, Basophils (%) (Auto) 0.6, Neutrophils # (Auto) 5.7, Lymphocytes # (Auto) 1.1 L, Monocytes # (Auto) 0.8, Eosinophils # (Auto) 0.1, Basophils # (Auto) 0.1, Calcium Level 9.2 Impression POD2 RA Lap colostomy reversal She is doing very well I think. I encouraged her to continue to try to take her increase her oral intake. She can choose on her food. She is passing a lot of flatus, no bowel movements yet. She is making a good amount of urine spontaneously. She is ambulating the hallways independently. I have switched the ketorolac IV to regular scheduled to help her with her rheumatoid arthritis as well as the left shoulder pain. Continue with soft diet saline lock ivf ambulate to hallways Plan / VTE VTE Prophylaxis Ordered?: Yes Plan / Urinary Catheter Urinary Catheter: D/C ALEXANDER Peñaloza MD Oct 27, 2018 07:45
[2018-10-27] MEDS: lisinopriL 20 MG TAB PO SCH (08:52)
[2018-10-27] MEDS: HYDROXYCHLOROQUINE 200 MG TAB PO SCH ×2 (08:52→21:59)
[2018-10-27] MEDS: SENOKOT S TAB PO SCH ×2 (08:52→21:55)
[2018-10-27] MEDS: ALVIMOPAN 12 MG CAPSULE (ENTEREG) PO SCH ×2 (08:52→21:55)
[2018-10-27] MEDS: PANTOPRAZOLE 40MG TAB (PROTONIX) PO SCH (08:52)
[2018-10-27] MEDS: NORCO, ANEXSIA 5/325MG TABLET (HYDROcodone/ACETAMINOPHEN) PO PRN (08:53)
[2018-10-27] MEDS: METAMUCIL (PSYLLIUM) PACKET PO SCH (08:54)
[2018-10-27] MEDS: KETOROLAC 30 MG/ML VIAL (J1885) IV SCH ×2 (11:30→18:20)
[2018-10-27 14:00] VITALS: BP 147/67
[2018-10-27 20:00] VITALS: BP 138/66
[2018-10-27] MEDS: CALCIUM/VITAMIN D 500 MG TAB PO SCH (21:55)
[2018-10-28] MEDS: KETOROLAC 30 MG/ML VIAL (J1885) IV SCH ×5 (00:54→23:21)
[2018-10-28] MEDS: HEPARIN SOD (PORCINE) 5000 UNITS/ML VIAL SC SCH ×3 (05:22→20:33)
[2018-10-28] MEDS: POLYVINYL ALCOHOL OPHTH SOLN 15 ML(LIQUITEARS) OD PRN (05:22)
[2018-10-28 06:00] VITALS: BP 118/76
[2018-10-28 06:28] LABS: BASO # 0.1 10^3/uL (0.0-0.2); BASO % 0.7 % (0.0-1.0); EOS # 0.5 10^3/uL (0.0-0.5); EOS % 6.4 % (0.0-3.0); HEMATOCRIT 28.3 % (36.0-47.0); HEMOGLOBIN 9.3 g/dl (12.0-15.5); LYMPH # 1.4 10^3/uL (1.5-5.0); LYMPH % 18.3 % (24.0-44.0); MEAN CORPUSCULAR HEMOGLOBIN 29.3 pg (27.0-33.0); MEAN CORPUSCULAR HGB CONC 32.9 g/dl (32.0-36.5); MEAN CORPUSCULAR VOLUME 89.3 fl (80.0-96.0); MONO # 0.8 10^3/uL (0.0-0.8); MONO % 10.9 % (0.0-5.0); NEUTROPHILS # 4.8 10^3/uL (1.5-8.5); NEUTROPHILS % 63.4 % (36.0-66.0); PLATELET COUNT, AUTOMATED 170 10^3/uL (150-450); RED BLOOD COUNT 3.17 10^6/uL (4.00-5.40); WHITE BLOOD COUNT 7.5 10^3/uL (4.0-10.0)
[2018-10-28 06:51] LABS: BLOOD UREA NITROGEN 12 MG/DL (7-18); CALCIUM LEVEL 8.4 MG/DL (8.8-10.2); CARBON DIOXIDE LEVEL 25 MEQ/L (21-32); CHLORIDE LEVEL 108 MEQ/L (98-107); CREATININE FOR GFR 0.93 MG/DL (0.55-1.30); GLOMERULAR FILTRATION RATE > 60.0 (>45); GLUCOSE, FASTING 95 MG/DL (70-100); POTASSIUM SERUM 3.5 MEQ/L (3.5-5.1); SODIUM LEVEL 141 MEQ/L (136-145)
--- NOTE | 2018-10-28 08:13 | IPNPDOC ---
Subjective General Date/Time Seen The patient was seen on 10/28/18 at 08:10. Subject Chief Complaint/History She is on her third postoperative day now. She is passing flatus and has had small bowel movements. She is generally tolerating the soft diet. She denies any nausea though she reports she is not eating much. She is complaining of a lot of left shoulder pain. Current Medications Current Medications Current Medications Medications (Trade) Dose Ordered Sig/Elena Route PRN Reason Start Time Stop Time Status Last Admin Dose Admin Acetaminophen (Tylenol Tab) 650 mg Q4HP PRN PO MILD PAIN or TEMP > 101 10/25/18 12:30 10/27/18 04:20 Acetaminophen/ Hydrocodone Bitart ([place], Anexsia 5/325) 1 tab Q4HP PRN PO MODERATE PAIN (PS 5-7) 10/25/18 12:30 10/27/18 08:53 Acetaminophen/ Hydrocodone Bitart ([place], Anexsia 5/325) 2 tab Q6HP PRN PO SEVERE PAIN (PS 8-10) 10/25/18 12:30 10/26/18 05:17 Alvimopan (Entereg) 12 mg BID PO 10/25/18 21:00 11/01/18 20:59 10/27/18 21:55 Artificial Tears (Akwa Tears) 2 drop Q1HP PRN OD IRRITATION 10/25/18 19:45 10/28/18 05:22 Calcium/Vitamin D (Oscal D) 500 mg QPM PO 10/25/18 21:00 10/27/18 21:55 Eye Irrigation Solution (Eye Stream) FLUSH AFFECTED EYE ASDIRECTED PRN OD DISCOMFORT 10/25/18 14:00 10/25/18 16:00 DC Fentanyl Citrate (Sublimaze) 25 mcg Q5MP PRN IV MODERATE PAIN (PS 4-7) 10/25/18 12:45 10/25/18 13:45 DC Fluticasone Propionate (Flonase 0.05% Nasal [place]) 2 SPRAYS IN EACH NOSTRIL DAILY PRN NARES NASAL CONGESTION 10/25/18 12:30 Heparin Sodium (Porcine) (Heparin) 5,000 units Q8H SC 10/25/18 22:00 10/28/18 05:22 Hydroxychloroquine Sulfate (Plaquenil) 200 mg BID PO 10/25/18 21:00 10/27/18 21:59 Ketorolac Tromethamine (ToRADol) 30 mg Q6H IV 10/27/18 12:00 11/01/18 11:59 10/28/18 05:23 Ketorolac Tromethamine (ToRADol) 30 mg Q6HP PRN IV MILD/MODERATE PAIN (PS 1-7) 10/25/18 12:30 10/26/18 12:35 DC Lactated Ringer's 1,000 ml @ 75 mls/hr [id number] IV 10/25/18 12:30 10/27/18 06:06 DC 10/27/18 04:20 Lactated Ringer's 1,000 ml @ 80 mls/hr [id number] IV 10/25/18 12:45 10/25/18 13:45 DC Lidocaine HCl (LIDOCAINE 1% MDV 20ml) 0.1 ml ONCE PRN SQ DISCOMFORT BEFORE IV START 10/25/18 06:00 10/25/18 12:39 DC Lisinopril (Prinivil) 20 mg DAILY PO 10/26/18 09:00 10/27/18 08:52 Morphine Sulfate (Morphine Sulfate Inj) 4 mg Q2HP PRN IV SEVERE PAIN (PS 8-10) 10/25/18 12:30 Ondansetron HCl (ZOFRAN INJection) 4 mg Q4HP PRN IV NAUSEA OR VOMITING 10/25/18 12:45 10/25/18 13:45 DC Ondansetron HCl (ZOFRAN INJection) 4 mg Q6HP PRN IV NAUSEA OR VOMITING 10/25/18 12:30 Oxycodone/ Acetaminophen (Percocet 5mg/ 325mg Tablet) 1 tab ASDIRECTED PRN PO MILD/MODERATE PAIN (PS 1-7) 10/25/18 12:45 10/25/18 13:45 DC Pantoprazole Sodium (Protonix) 40 mg DAILY PO 10/26/18 09:00 10/27/18 08:52 Psyllium Hydrophilic Mucilloid (Metamucil) 1 pkt DAILY PO 10/26/18 09:00 10/27/18 08:54 Scopolamine (Scopolamine) 1 mg Q72H TOP 10/25/18 09:00 10/25/18 14:12 DC Senna/Docusate Sodium (Senokot S) 1 tab BID PO 10/25/18 21:00 10/27/18 21:55 Allergies Coded Allergies: Penicillins (Verified Allergy, Severe, ULCERATED THROAT, 10/14/18) bacitracin (Verified Allergy, Intermediate, RASH, 10/14/18) celecoxib (Verified Allergy, Intermediate, RASH - CAN TAKE IBUPROFEN AND NAPROXEN, 10/14/18) neomycin (Verified Allergy, Intermediate, RASH, 10/14/18) polymyxin B (Verified Allergy, Intermediate, RASH , 10/14/18) ramipril (Verified Allergy, Intermediate, RASH, 10/14/18) Sulfa (Sulfonamide Antibiotics) (Verified Adverse Reaction, Mild, NAUSEA/VOMITING, 10/14/18) codeine (Verified Adverse Reaction, Mild, NAUSEA/VOMITING, 10/14/18) doxycycline (Verified Adverse Reaction, Mild, VOMITING, 10/14/18) Objective Physical Examination Examination GENERAL APPEARANCE: Relatively comfortable. SKIN: Warm and moist. HEENT: Normocephalic, atraumatic. [place] palpebral conjunctiva, anicteric sclerae. Lips and mucosa appear moist. NECK: Supple, no thyromegaly. No obvious jugular venous distention. LUNGS: Clear to auscultation bilaterally. No wheezing appreciated. HEART: No chest wall abnormalities. Regular rate and rhythm with no murmurs appreciated. ABDOMEN: Abdomen is mild obese, soft, and mildly distended and tympanitic to percussion so she is having active bowel sounds. Ostomy site closure is relatively clean dry and intact minimal staining. Rest of the port sites are dry and healing accordingly.. 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 Vital Signs Vital Signs Date Time Temp Pulse Resp B/P (MAP) Pulse Ox O2 Delivery O2 Flow Rate FiO2 10/28/18 06:00 98.6 78 17 118/76 (90) 96 10/25/18 12:45 2 I&Os I&O- Last 24 Hours up to 6 AM 10/28/18 06:00 Intake Total 2095 ml Output Total 1525 ml Balance 570 ml Laboratory Data Labs 24H Laboratory Tests 2 10/28/18 05:29: Immature Granulocyte % (Auto) 0.3, White Blood Count 7.5, Red Blood Count 3.17L, Hemoglobin 9.3L, Hematocrit 28.3L, Mean Corpuscular Volume 89.3, Mean Corpuscular Hemoglobin 29.3, Mean Corpuscular Hemoglobin Concent 32.9, Red Cell Distribution Width 12.7, Platelet Count 170, Neutrophils (%) (Auto) 63.4, Lymphocytes (%) (Auto) 18.3L, Monocytes (%) (Auto) 10.9H, Eosinophils (%) (Auto) 6.4H, Basophils (%) (Auto) 0.7, Neutrophils # (Auto) 4.8, Lymphocytes # (Auto) 1.4L, Monocytes # (Auto) 0.8, Eosinophils # (Auto) 0.5, Basophils # (Auto) 0.1, Nucleated Red Blood Cells % (auto) 0.0, Anion Gap 8, Glomerular Filtration Rate > 60.0, Blood Urea Nitrogen 12, Creatinine 0.93, Sodium Level 141, Potassium Level 3.5, Chloride Level 108H, Carbon Dioxide Level 25, Calcium Level 8.4L CBC/BMP Laboratory Tests 10/28/18 05:29 Red Blood Count 3.17 L, Mean Corpuscular Volume 89.3, Mean Corpuscular Hemoglobin 29.3, Mean Corpuscular Hemoglobin Concent 32.9, Red Cell Distribution Width 12.7, Neutrophils (%) (Auto) 63.4, Lymphocytes (%) (Auto) 18.3 L, Monocytes (%) (Auto) 10.9 H, Eosinophils (%) (Auto) 6.4 H, Basophils (%) (Auto) 0.7, Neutrophils # (Auto) 4.8, Lymphocytes # (Auto) 1.4 L, Monocytes # (Auto) 0.8, Eosinophils # (Auto) 0.5, Basophils # (Auto) 0.1, Calcium Level 8.4 L Impression POD3 RA Lap colostomy reversal Main complaint yesterday is her left shoulder was hurting. She has a history of partial tears at the area. Better today. She looks a little bit more distended though denies nausea. She is passing flatus. She is so far tolerating soft diet. Will maintain her on that. I encouraged her to continue on increasing ambulation and general activity during the day. She remains on Entereg and stool softeners. Labs reviewed and within normal. Continue with soft diet ambulate to hallways Plan / VTE VTE Prophylaxis Ordered?: Yes Plan / Urinary Catheter Urinary Catheter: D/C ALEXANDER Peñaloza MD Oct 28, 2018 08:13
[2018-10-28] MEDS: SENOKOT S TAB PO SCH ×2 (08:39→20:33)
[2018-10-28] MEDS: lisinopriL 20 MG TAB PO SCH (08:39)
[2018-10-28] MEDS: PANTOPRAZOLE 40MG TAB (PROTONIX) PO SCH (08:39)
[2018-10-28] MEDS: METAMUCIL (PSYLLIUM) PACKET PO SCH (08:39)
[2018-10-28] MEDS: ALVIMOPAN 12 MG CAPSULE (ENTEREG) PO SCH ×2 (08:39→20:32)
[2018-10-28] MEDS: HYDROXYCHLOROQUINE 200 MG TAB PO SCH ×2 (08:40→20:32)
[2018-10-28 14:00] VITALS: BP 130/64
[2018-10-28] MEDS: CALCIUM/VITAMIN D 500 MG TAB PO SCH (20:32)
[2018-10-28] MEDS: ACETAMINOPHEN TAB 650MG DOSE (2X325MG) PO PRN (20:32)
[2018-10-28 22:00] VITALS: BP 140/70
[2018-10-29] MEDS: HEPARIN SOD (PORCINE) 5000 UNITS/ML VIAL SC SCH (05:02)
[2018-10-29] MEDS: KETOROLAC 30 MG/ML VIAL (J1885) IV SCH ×2 (05:03→11:14)
[2018-10-29 06:00] VITALS: BP 142/78
[2018-10-29] MEDS: METAMUCIL (PSYLLIUM) PACKET PO SCH (09:21)
[2018-10-29 09:24] VITALS: BP 153/70
[2018-10-29] MEDS: lisinopriL 20 MG TAB PO SCH (09:24)
[2018-10-29] MEDS: PANTOPRAZOLE 40MG TAB (PROTONIX) PO SCH (09:24)
[2018-10-29] MEDS: SENOKOT S TAB PO SCH (09:24)
[2018-10-29] MEDS: ALVIMOPAN 12 MG CAPSULE (ENTEREG) PO SCH (09:24)
[2018-10-29] MEDS: HYDROXYCHLOROQUINE 200 MG TAB PO SCH (09:28)
[2018-10-29] MEDS ORDERED: HYDR-4571 PO (09:44)
--- NOTE | 2018-10-29 09:53 | DS.PDOC ---
Discharge Summary General Date of Admission Oct 25, 2018 at 05:55 Date of Discharge 2018 Attending Physician: ALEXANDER FAYE MD Discharge Summary PROCEDURES PERFORMED DURING STAY: robotic Assisted Laparoscopic Colostomy Reversal. ADMITTING DIAGNOSES: 1. colostomy status 2, history of perforated diverticulitis 3. rheumatoid arthritis. DISCHARGE DIAGNOSES: 1. 1. colostomy status 2, history of perforated diverticulitis 3. rheumatoid arthritis. 4. left shoulder pain (partial labral tear -old) COMPLICATIONS/CHIEF COMPLAINT: History Of Perforated Diverticulitis. HISTORY OF PRESENT ILLNESS:Patient has a prior history of perforated di verticulitis and underwent sigmoid colon resection and colostomy. She is being brought back to the hospital for reversal of her colostomy. HOSPITAL COURSE: Patient underwent robotic-assisted laparoscopic reversal of her colostomy. Intraoperatively she had multiple adhesions consistent with prior history of diverticulitis and diverticular perforation. This extended the time of the surgery but otherwise the procedure went well. She was admitted to [facility]. She was started on clear liquids. Return of bowel was slightly slow. She remained distended up to postop day 3 she started having flatus and was having some bowel movements by postop day 2. Advance her diet at postop day 2 patient was able to tolerate soft to low residue type diet. Prominent complaint after the surgery was worsening of her chronic left shoulder discomfort. I placed her on regular doses of Toradol which seemed to help. On day of discharge he is tolerating regular food she is passing flatus and has had a couple of well-formed bowel movements. He has been afebrile throughout her stay. DISCHARGE MEDICATIONS: Please see below. ALLERGIES: Please see below. PHYSICAL EXAMINATION ON DISCHARGE: VITAL SIGNS: Please see below. GENERAL: Comfortable, seen walking the hallways HEENT: normocephalic, atraumatic, no asymmetry NECK: supple CARDIOVASCULAR EXAMINATION: Regular Heart rate and rhythm with no murmurs RESPIRATORY EXAMINATION: clear breath sounds to ausculation bilaterally ABDOMINAL EXAMINATION: mild obese, soft, minimally distended. Laparoscopic port sites with dry dressings (jennyfer in place). Previous LLQ ostomy site with minimal staining on the dressing, mild, faint erythema at the middle. No obvious cellulitis, drainage in between the jennyfer which are widely placed. EXTREMITIES: Minimal LE edema SKIN: no rashes NEUROLOGICAL EXAMINATION: awake, alert, oriented. Ambulating normally. No weakness LABORATORY DATA: Please see below. IMAGING: none PROGNOSIS: good ACTIVITY: light activity for another 2 weeks. DIET: as tolerated DISCHARGE PLAN: D/C Home. [place] to be removed on follow up DISPOSITION: . DISCHARGE INSTRUCTIONS: 1. as above 2. may shower, pat incisions dry. 3. May leave port site incisions uncovered. 4. Replace dry gauze dressings on previous ostomy site. clean area with soap and water.. ITEMS TO FOLLOWUP ON ON OUTPATIENT: 1. remove jennyfer 2. check ostomy site closure DISCHARGE CONDITION: Stable. TIME SPENT ON DISCHARGE: Greater than 30 minutes. Vital Signs/I&Os Vital Signs Date Time Temp Pulse Resp B/P (MAP) Pulse Ox O2 Delivery O2 Flow Rate FiO2 10/29/18 09:24 153/70 10/29/18 06:00 98.9 79 20 97 10/25/18 12:45 2 I&O- Last 24 Hours up to 6 AM 10/29/18 06:00 Intake Total 1560 ml Output Total 1350 ml Balance 210 ml Discharge Medications Scheduled Calcium Carbonate/Vitamin D3 (Calcium 500-Vit D3 400 Tablet) 1 Tab Tab, 1 TAB PO QPM, (Reported) Cholecalciferol (Vitamin D3) (Vitamin D3) 2,000 Unit Tab, 2,000 UNIT PO DAILY, (Reported) Esomeprazole Magnesium (Esomeprazole Magnesium Dr) 40 Mg Cap, 40 MG PO DAILY, (Reported) Hydroxychloroquine Sulfate (Hydroxychloroquine Sulfate) 200 Mg Tab, 200 MG PO BID, (Reported) Lisinopril (Lisinopril) 20 Mg Tab, 20 MG PO DAILY, (Reported) Multivitamins (Thera M Plus Tablet) 1 Tab Tab, 1 TAB PO DAILY, (Reported) Psyllium Husk (with Sugar) (Metamucil Powder) 575 Gm Powder, 1 TBS PO DAILY, (Reported) Scheduled PRN Acetaminophen (Tylenol Arthritis) 650 Mg Tablet.er, 1,300 MG PO QHS PRN for PAIN, (Reported) Fluticasone Propionate (Fluticasone Propionate) 50 Mcg/Act Spr, 2 SPRAY NARES DAILY PRN for NASAL CONGESTION, (Reported) Hydrocodone/Acetaminophen (Hydrocodone-Acetamin 5-325 mg) 1 Each Tablet, 1-2 TAB PO Q4HP PRN for MODERATE PAIN (PS 5-7) Menthol (Biofreeze) 118 Ml Gel..ml., 4 % EX PRN PRN for PAIN, (Reported) Methyl Salicylate/Menthol (Icy Hot Cream) 35.4 Gm Cream..g., 1 APLCT TOP QHS PRN for PAIN, (Reported) Naproxen (Naproxen) 500 Mg Tab, 500 MG PO BID PRN for PAIN, (Reported) [Meli's Leg Cramps] , 2 TAB SL Q4H PRN for CRAMPS, (Reported) Allergies Coded Allergies: Penicillins (Verified Allergy, Severe, ULCERATED THROAT, 10/14/18) bacitracin (Verified Allergy, Intermediate, RASH, 10/14/18) celecoxib (Verified Allergy, Intermediate, RASH - CAN TAKE IBUPROFEN AND NAPROXEN, 10/14/18) neomycin (Verified Allergy, Intermediate, RASH, 10/14/18) polymyxin B (Verified Allergy, Intermediate, RASH , 10/14/18) ramipril (Verified Allergy, Intermediate, RASH, 10/14/18) Sulfa (Sulfonamide Antibiotics) (Verified Adverse Reaction, Mild, NAUSEA/VOMITING, 10/14/18) codeine (Verified Adverse Reaction, Mild, NAUSEA/VOMITING, 10/14/18) doxycycline (Verified Adverse Reaction, Mild, VOMITING, 10/14/18) ALEXANDER FAYE MD Oct 29, 2018 09:53
== END 2018-10-29 12:16 | disposition home or self-care (01) | DRG 675 ==
LOC: M OR 05:55 → M MSPAV 13:45
PROVIDERS: ADMIT Surgery; ATTEND Surgery
PROC: 0DSM4ZZ Reposition Descending Colon, Percutaneous Endoscopic Approach (ICD-10-PCS; 2018-10-25)
PROC: 8E0W4CZ Robotic Assisted Procedure of Trunk Region, Percutaneous Endoscopic Approach (ICD-10-PCS; 2018-10-25)
PROC: 0DNU4ZZ Release Omentum, Percutaneous Endoscopic Approach (ICD-10-PCS; principal; 2018-10-25 07:30)
DX: Z43.5 Encounter for attention to cystostomy (principal); M06.9 Rheumatoid arthritis, unspecified; Z79.899 Other long term (current) drug therapy; Z88.0 Allergy status to penicillin; Z88.2 Allergy status to sulfonamides; Z88.5 Allergy status to narcotic agent; Z88.8 Allergy status to other drugs, medicaments and biological substances

== ENCOUNTER → 2019-04-18 | Outpatient (CLI) | payer MEDICARE ==
[2019-04-18 10:50] LABS: HEMATOCRIT 37.8 % (36.0-47.0); HEMOGLOBIN 12.2 g/dl (12.0-15.5); MEAN CORPUSCULAR HEMOGLOBIN 28.7 pg (27.0-33.0); MEAN CORPUSCULAR HGB CONC 32.3 g/dl (32.0-36.5); MEAN CORPUSCULAR VOLUME 88.9 fl (80.0-96.0); PLATELET COUNT, AUTOMATED 233 10^3/uL (150-450); RED BLOOD COUNT 4.25 10^6/uL (4.00-5.40); WHITE BLOOD COUNT 5.2 10^3/uL (4.0-10.0)
[2019-04-18 11:07] LABS: HEMOGLOBIN A1c 5.5 %
[2019-04-18 11:13] LABS: ALBUMIN 3.9 GM/DL (3.2-5.2); BILIRUBIN,TOTAL 0.6 MG/DL (0.2-1.0); CALCIUM LEVEL 9.7 MG/DL (8.8-10.2); CHOLESTEROL RISK RATIO 3.042 (<5); CREATININE FOR GFR 1.28 MG/DL (0.55-1.30); GLOMERULAR FILTRATION RATE 44.1 (>45); MAGNESIUM LEVEL 1.8 MG/DL (1.8-2.4); POTASSIUM SERUM 4.6 MEQ/L (3.5-5.1); TOTAL PROTEIN 6.7 GM/DL (6.4-8.2)
[2019-04-18 18:40] LABS: MALB URINE SIEMENS 6.7 MG/L; MAU/CREAT RATIO 5.1 MCG/MG (0.0-30.0)
== END ==
LOC: M PLALAB 08:24
PROVIDERS: ATTEND Internal Medicine
DX: E78.00 Pure hypercholesterolemia, unspecified (principal); Z85.3 Personal history of malignant neoplasm of breast; E11.9 Type 2 diabetes mellitus without complications; I10 Essential (primary) hypertension

== ENCOUNTER → 2019-04-24 | Outpatient (CLI) | payer MEDICARE ==
--- NOTE | 2019-04-24 16:46 | REP ---
Left knee series: Five views. History: Contusion of the left lower leg. Findings: Five views of the left knee demonstrate patellofemoral narrowing and spur formation. There is medial compartment spurring and mild medial compartment joint space narrowing as well. There is lateral compartment spurring. Diffuse osteopenia is noted. No fractures seen. Impression: Three compartment osteoarthritis. Diffuse osteopenia. No traumatic abnormality noted. Electronically Signed by Luis Eduardo Alonso MD 04/24/2019 04:38 P
--- NOTE | 2019-04-24 16:47 | REP ---
Left calf series: Two views. History: Contusion. Findings: AP and lateral views of the left calf demonstrate normal bones, joints, and soft tissues. Spurring is noted at the knee. Impression: No fracture noted. Negative left calf radiographs. Electronically Signed by Luis Eduardo Alonso MD 04/24/2019 04:38 P
== END ==
LOC: M WUC 16:15
PROVIDERS: ATTEND Physician Assistant
DX: M17.12 Unilateral primary osteoarthritis, left knee (principal); M85.862 Other specified disorders of bone density and structure, left lower leg; S80.12XA Contusion of left lower leg, initial encounter; X58.XXXA Exposure to other specified factors, initial encounter

== ENCOUNTER → 2019-10-17 | Outpatient (CLI) | payer MEDICARE ==
[~2019-10-17] MED LIST changes: +ACET650T61 PO; -TYLE650T35 PO
[2019-10-17 12:56] LABS: CREATININE FOR GFR 1.43 MG/DL (0.55-1.30); GLOMERULAR FILTRATION RATE 38.7 (>45); MAGNESIUM LEVEL 1.9 MG/DL (1.8-2.4)
[2019-10-17 12:59] LABS: ALBUMIN 3.7 GM/DL (3.2-5.2); BILIRUBIN,TOTAL 0.5 MG/DL (0.2-1.0); CALCIUM LEVEL 9.6 MG/DL (8.8-10.2); CHOLESTEROL RISK RATIO 2.634 (<5); CREATININE FOR GFR 1.39 MG/DL (0.55-1.30); MAGNESIUM LEVEL 1.9 MG/DL (1.8-2.4); POTASSIUM SERUM 4.4 MEQ/L (3.5-5.1); TOTAL PROTEIN 6.5 GM/DL (6.4-8.2)
== END ==
LOC: M PLALAB 08:42
PROVIDERS: ATTEND Internal Medicine
DX: I10 Essential (primary) hypertension (principal); E78.00 Pure hypercholesterolemia, unspecified; E11.9 Type 2 diabetes mellitus without complications

== ENCOUNTER → 2019-12-29 | Outpatient (CLI) | payer MEDICARE | LOC: M LABSMTC 09:50 | PROVIDERS: ATTEND Orthopaedic Surgery | DX: Z01.812 Encounter for preprocedural laboratory examination (principal); Z20.828 Contact with and (suspected) exposure to other viral communicable diseases ==

== ENCOUNTER → 2020-04-16 | Outpatient (REF) | payer MEDICARE ==
[~2020-04-16] MED LIST changes: -LISI-538 PO; +LISI20TA33 PO
[2020-04-16 11:24] LABS: ALBUMIN 3.8 GM/DL (3.2-5.2); BILIRUBIN,TOTAL 0.6 MG/DL (0.2-1.0); CALCIUM LEVEL 9.9 MG/DL (8.8-10.2); CHOLESTEROL RISK RATIO 3.123 (<5); CREATININE FOR GFR 1.22 MG/DL (0.55-1.30); GLOMERULAR FILTRATION RATE 46.5 (>45); MAGNESIUM LEVEL 1.7 MG/DL (1.8-2.4); POTASSIUM SERUM 4.8 MEQ/L (3.5-5.1); TOTAL PROTEIN 6.7 GM/DL (6.4-8.2)
[2020-04-16 11:45] LABS: HEMOGLOBIN A1c 5.5 %
== END ==
LOC: M PLALAB 08:27
PROVIDERS: ATTEND Internal Medicine
DX: E78.00 Pure hypercholesterolemia, unspecified (principal); I10 Essential (primary) hypertension; E11.9 Type 2 diabetes mellitus without complications

== ENCOUNTER → 2020-04-23 | Outpatient (REF) | payer MEDICARE ==
[2020-04-23 14:14] LABS: APPEARANCE, URINE HAZY (CLEAR); BACTERIA, URINE AUTO NEGATIVE (NEGATIVE); BILIRUBIN, URINE AUTO NEGATIVE (NEGATIVE); BLOOD, URINE BLOOD NEGATIVE (NEGATIVE); COLOR, URINE AMBER (YELLOW); GLUCOSE, URINE (UA) AUTO NEGATIVE (NEGATIVE); KETONE, URINE AUTO 1+ mg/dL (NEGATIVE); LEUKOCYTE ESTERASE, URINE AUTO NEGATIVE (NEGATIVE); MUCUS, URINE SMALL (NEGATIVE); NITRITE, URINE AUTO NEGATIVE (NEGATIVE); PROTEIN, URINE AUTO 2+ mg/dL (NEGATIVE); RBC, URINE AUTO 3 /HPF (0-3); SPECIFIC GRAVITY URINE AUTO 1.025 (1.002-1.035); SQUAMOUS EPITHELIAL CELL UR AU 1 /HPF (0-6); UROBILINOGEN, URINE AUTO 0.2 mg/dL (0.0-2.0); WBC, URINE AUTO 2 /HPF (0-3)
== END ==
LOC: M SFHCPLAZ 13:40
PROVIDERS: ATTEND Internal Medicine
DX: R35.0 Frequency of micturition (principal)
CPT/HCPCS: 81001; 87086; G0463

== ENCOUNTER → 2020-05-17 | Outpatient (CLI) | payer MEDICARE ==
[2020-05-17 13:58] LABS: BASO # 0.1 10^3/uL (0.0-0.2); BASO % 0.5 % (0.0-1.0); EOS # 0.1 10^3/uL (0.0-0.5); EOS % 0.8 % (0.0-3.0); HEMATOCRIT 35.2 % (36.0-47.0); HEMOGLOBIN 10.9 g/dl (12.0-15.5); LYMPH # 1.3 10^3/uL (1.5-5.0); LYMPH % 9.6 % (24.0-44.0); MEAN CORPUSCULAR HEMOGLOBIN 28.1 pg (27.0-33.0); MEAN CORPUSCULAR VOLUME 90.7 fl (80.0-96.0); MONO % 7.5 % (2.0-8.0); NEUTROPHILS # 10.6 10^3/uL (1.5-8.5); NEUTROPHILS % 80.9 % (36.0-66.0); PLATELET COUNT, AUTOMATED 389 10^3/uL (150-450); RED BLOOD COUNT 3.88 10^6/uL (4.00-5.40); WHITE BLOOD COUNT 13.1 10^3/uL (4.0-10.0)
[2020-05-17 14:24] LABS: ERYTHROCYTE SEDIMENTATION RATE 89 mm/hr (0-30)
== END ==
LOC: M PLALAB 09:11
PROVIDERS: ATTEND Internal Medicine Gastroenterology
DX: K57.92 Diverticulitis of intestine, part unspecified, without perforation or abscess without bleeding (principal); R94.5 Abnormal results of liver function studies; K21.9 Gastro-esophageal reflux disease without esophagitis

== ENCOUNTER → 2020-05-31 | Outpatient (CLI) | payer MEDICARE ==
[2020-05-31 14:18] LABS: BASO # 0.1 10^3/uL (0.0-0.2); BASO % 1.2 % (0.0-1.0); EOS # 0.1 10^3/uL (0.0-0.5); EOS % 1.2 % (0.0-3.0); HEMATOCRIT 37.4 % (36.0-47.0); HEMOGLOBIN 11.6 g/dl (12.0-15.5); LYMPH % 23.5 % (24.0-44.0); MEAN CORPUSCULAR HEMOGLOBIN 27.6 pg (27.0-33.0); MEAN CORPUSCULAR VOLUME 88.8 fl (80.0-96.0); MONO # 0.6 10^3/uL (0.0-0.8); MONO % 7.5 % (2.0-8.0); NEUTROPHILS # 5.7 10^3/uL (1.5-8.5); NEUTROPHILS % 66.2 % (36.0-66.0); PLATELET COUNT, AUTOMATED 411 10^3/uL (150-450); RED BLOOD COUNT 4.21 10^6/uL (4.00-5.40); WHITE BLOOD COUNT 8.6 10^3/uL (4.0-10.0)
[2020-05-31 14:29] LABS: C REACTIVE PROTEIN QUANTITATIV 0.57 MG/DL (0.00-0.30); CALCIUM LEVEL 10.2 MG/DL (8.8-10.2); CREATININE FOR GFR 1.15 MG/DL (0.55-1.30); GLOMERULAR FILTRATION RATE 49.8 (>45); POTASSIUM SERUM 4.5 MEQ/L (3.5-5.1)
== END ==
LOC: M LAB 13:00
PROVIDERS: ATTEND Surgery
DX: K57.30 Diverticulosis of large intestine without perforation or abscess without bleeding (principal)

== ENCOUNTER → 2020-06-20 | Outpatient (CLI) | payer MEDICARE ==
[~2020-06-20] MED LIST changes: +GASTROGRAFIN SOLUTION 30ML (Q9963) As Ordered ONE; +ISOVUE-370 76% 100ML VIAL As Ordered ONE
--- NOTE | 2020-06-20 10:18 | REP ---
INDICATION: DIVERTICULITIS, OTH NEOPLASM OF UTERUS. Patient gives a history of a Jewel spotting and prior history of breast carcinoma. COMPARISON: Comparison pelvic sonography April 24, 2011.. TECHNIQUE: Transvaginal pelvic sonography. FINDINGS: Patient had difficulty tolerating the transvaginal probe which could not be [place] inserted. The ovaries were not visualized on either side. No adnexal mass, cyst or free fluid is seen. Uterine dimensions are 7.1 x 3.1 x 3.4 cm. Endometrium is 0.4 cm in thickness. The uterus is less than optimally seen as well. IMPRESSION: Less than optimal visualization as above. Question thickened endometrium. Neither ovary could be directly visualized. <Electronically signed by Syed Alonso > 06/20/20 [id number]
--- NOTE | 2020-06-20 12:05 | REP ---
INDICATION: DIVERTICULITIS, OTH NEOPLASM OF UTERUS COMPARISON: 06/26/2018. TECHNIQUE: CT Scan of the abdomen and pelvis was performed with intravenous administration of 100 cc of Isovue 370, and oral contrast. FINDINGS: Lung bases: Unremarkable. Liver: Normal Gallbladder: Unremarkable. Spleen: Normal. Adrenals: Normal. Pancreas: Normal. Kidneys: There is no hydronephrosis. There is a cyst in the lower pole the left kidney 8 mm in diameter. Small and large bowel: No evidence of bowel wall thickening or inflammation. There is a suture line in the region of the sigmoid colon. Free fluid: None. Abdominal aorta: No aneurysm or dissection. Adenopathy: None. Appendix: Not inflamed. There is an oval calcification in the appendix measuring 8 x 4 mm. Osseous structures: There are degenerative changes of the spine without compression deformity. Pelvis: There is an oval cystic structure in the left adnexal region measuring 2.2 x 1.5 cm. There is a small umbilical hernia containing noninflamed fat. There is a left lower quadrant anterior abdominal hernia containing noninflamed fat, the aperture of the hernia 3 cm in diameter. IMPRESSION: No evidence of bowel wall thickening or inflammatory change. Oval calcification in the appendix measures 8 x 4 mm, without evidence of appendicitis. Oval cystic structure left adnexa measuring 2.2 cm in maximum diameter. This may represent a small left ovarian cyst versus is a small focal area of postsurgical fluid. Recommend follow-up CT of the pelvis in 6 months. Small umbilical hernia and left lower quadrant anterior abdominal wall hernia. <Electronically signed by Yuri Hernandez > 06/20/20 [id number]
== END ==
LOC: M RAD 09:00
PROVIDERS: ATTEND Surgery
DX: K57.32 Diverticulitis of large intestine without perforation or abscess without bleeding (principal); D26.7 Other benign neoplasm of other parts of uterus; K42.9 Umbilical hernia without obstruction or gangrene
CPT/HCPCS: 74177; 76830; Q9963; Q9967

== ENCOUNTER → 2020-06-25 | Outpatient (CLI) | payer MEDICARE ==
[~2020-06-25] MED LIST changes: -GASTROGRAFIN SOLUTION 30ML (Q9963) As Ordered ONE; -ISOVUE-370 76% 100ML VIAL As Ordered ONE
== END ==
LOC: M WHC 08:30
PROVIDERS: ATTEND Obstetrics & Gynecology
DX: R93.89 Abnormal findings on diagnostic imaging of other specified body structures (principal)

== ENCOUNTER → 2020-10-26 | Outpatient (CLI) | payer MEDICARE ==
--- NOTE | 2020-10-26 09:42 | REP ---
INDICATION: R93.89 THICKENED ENDOMETRIUM. COMPARISON: 06/20/2020. TECHNIQUE: Transabdominal and transvaginal scanning performed. FINDINGS: Uterine dimensions are 3.5 x 2.0 x 2.3 cm. Endometrial echo is 7 mm in AP dimension and centrally placed. The endometrium is heterogeneous in echotexture. Two focal hyperechoic nodular areas posteriorly are adjacent to one another and measure 4 mm in diameter. These may represent endometrial polyps. The bladder measures 3.0 x 1.8 x 2.5cm. The ovaries could not be visualized. There is no adnexal mass identified. No free fluid is seen in the cul-de-sac. IMPRESSION: Endometrial thickening up to 7 mm with heterogeneous echotexture. Two focal hyperechoic areas posteriorly measure 4 mm in diameter and may represent endometrial polyps. The ovaries could not be visualized. No evidence of adnexal mass or free fluid. <Electronically signed by Yuri Hernandez > 10/26/20 0938
== END ==
LOC: M WHC 07:57
PROVIDERS: ATTEND Obstetrics & Gynecology
DX: Z11.59 Encounter for screening for other viral diseases (principal); R93.89 Abnormal findings on diagnostic imaging of other specified body structures; Z85.3 Personal history of malignant neoplasm of breast; E78.00 Pure hypercholesterolemia, unspecified; E11.9 Type 2 diabetes mellitus without complications; I10 Essential (primary) hypertension

== ENCOUNTER → 2020-10-27 | Outpatient (CLI) | payer MEDICARE ==
--- NOTE | 2020-10-27 17:28 | REPVR ---
PROCEDURE INFORMATION: Exam: MR Lumbar Spine Without Contrast Exam date and time: 10/27/2020 2:20 PM Age: 70 years old Clinical indication: Low back pain; Patient HX: Lbp TECHNIQUE: Imaging protocol: Multiplanar magnetic resonance images of the lumbar spine without intravenous contrast. COMPARISON: CT ABD PELVIS WITH CONTRAST 06/20/2020 10:53 AM FINDINGS: Vertebrae: The lumbar vertebral bodies are normal in height, without abnormal subluxation. Mild convexity of the lumbar spine to the right. Spinal cord: The distal end of the conus medullaris ends at the L1, normal in position. Multilevel findings: Degenerative disc disease is noted diffusely within the lumbar and visualized lower thoracic spine, with disc bulge/osteophyte complexes. There is a decrease in the height of the L3-L4 and L4-L5 discs, with mild disc edema. Mild edema is seen within the bone marrow adjacent to the endplates at these levels. This edema is likely degenerative, although discitis/osteomyelitis is within the differential. L1-L2: Bilateral facet arthropathy. A broad-based disc bulge is visualized, without significant spinal canal stenosis. Mild bilateral neural foraminal narrowing. L2-L3: Mild facet arthropathy hypertrophy of the ligamentum flavum. A broad-based disc bulge is identified, without significant spinal canal stenosis. Moderate left neural foraminal narrowing. No significant narrowing the right neural foramen. There is narrowing of both lateral recesses. L3-L4: Bilateral facet arthropathy with hypertrophy of the ligamentum flavum. Disc bulging visualized, without significant spinal canal stenosis. Narrowing of both lateral recesses. Mild narrowing of the proximal neural foramina bilaterally. L4-L5: Bilateral facet arthropathy with hypertrophy of the ligamentum flavum. A broad-based disc bulge is identified, without significant spinal canal stenosis. There is narrowing of both lateral recesses. Mild to moderate left and moderate right neural foraminal narrowing visualized. There is encroachment on the exiting right L4 nerve root. L5-S1: Bilateral facet arthropathy. Mild disc bulging. The thecal sac tapers at this level, without thecal sac compression. Moderate right and mild left neural foraminal narrowing. There is encroachment on the exiting right L5 nerve root. Other bones/joints: Nonspecific heterogeneous signal intensity of the remaining bone marrow of the lumbar spine. Soft tissues: Minimal paravertebral swelling anteriorly at the L4-L5 level. Kidneys and ureters: Left renal pelvicaliectasis. Evaluation of the left kidney is limited. IMPRESSION: 1. Degenerative changes are noted diffusely within the lumbar and visualized lower thoracic spine, as described above. 2. There is a decrease in the height of the L3-L4 and L4-L5 discs, with mild disc edema. Mild edema is seen within the bone marrow adjacent to the endplates at these levels. This edema is likely degenerative, although discitis/osteomyelitis is within the differential in the appropriate clinical setting. Clinical correlation is recommended. 3. No significant spinal canal stenosis at any lumbar level. 4. Neural foraminal narrowing diffusely within the lumbar spine. 5. Minimal paravertebral swelling anteriorly at the L4-L5 level. 6. Left renal pelvicaliectasis. 7. Nonspecific heterogeneous signal intensity of the remaining bone marrow of the lumbar spine. Electronically signed by: Isaías Malone On 10/27/2020 17:28:54 PM
== END ==
LOC: M RAD 13:23
PROVIDERS: ATTEND Orthopaedic Surgery
DX: M54.5 Low back pain (principal)

== ENCOUNTER → 2020-11-05 | Outpatient (CLI) | payer MEDICARE ==
[2020-11-05 12:32] LABS: BASO # 0.1 10^3/uL (0.0-0.2); BASO % 1.2 % (0.0-1.0); EOS # 0.1 10^3/uL (0.0-0.5); EOS % 1.9 % (0.0-3.0); HEMATOCRIT 40.7 % (36.0-47.0); LYMPH # 1.9 10^3/uL (1.5-5.0); LYMPH % 32.8 % (24.0-44.0); MEAN CORPUSCULAR HEMOGLOBIN 28.9 pg (27.0-33.0); MEAN CORPUSCULAR HGB CONC 31.9 g/dl (32.0-36.5); MEAN CORPUSCULAR VOLUME 90.4 fl (80.0-96.0); MONO # 0.6 10^3/uL (0.0-0.8); MONO % 10.9 % (2.0-8.0); NEUTROPHILS # 3.1 10^3/uL (1.5-8.5); PLATELET COUNT, AUTOMATED 250 10^3/uL (150-450); WHITE BLOOD COUNT 5.9 10^3/uL (4.0-10.0)
[2020-11-05 13:01] LABS: ALBUMIN 3.9 GM/DL (3.2-5.2)
== END ==
LOC: M PLALAB 10:13
PROVIDERS: ATTEND Orthopaedic Surgery
DX: M25.562 Pain in left knee (principal); I10 Essential (primary) hypertension; E78.00 Pure hypercholesterolemia, unspecified; M06.9 Rheumatoid arthritis, unspecified; E11.9 Type 2 diabetes mellitus without complications; K21.9 Gastro-esophageal reflux disease without esophagitis; J30.9 Allergic rhinitis, unspecified; Z86.010 Personal history of colon polyps; Z80.0 Family history of malignant neoplasm of digestive organs; K75.81 Nonalcoholic steatohepatitis (NASH); K59.01 Slow transit constipation; M85.80 Other specified disorders of bone density and structure, unspecified site; R53.82 Chronic fatigue, unspecified; Z87.19 Personal history of other diseases of the digestive system; Z28.21 Immunization not carried out because of patient refusal; M17.12 Unilateral primary osteoarthritis, left knee; R93.89 Abnormal findings on diagnostic imaging of other specified body structures; Z85.3 Personal history of malignant neoplasm of breast
CPT/HCPCS: 36415; 82040; 82728; 83550; 85025; G0463

== ENCOUNTER → 2021-04-23 | Outpatient (CLI) | payer MEDICARE ==
[2021-04-23 10:49] LABS: BASO # 0.1 10^3/uL (0.0-0.2); BASO % 1.3 % (0.0-1.0); EOS # 0.3 10^3/uL (0.0-0.5); EOS % 4.7 % (0.0-3.0); HEMATOCRIT 37.6 % (36.0-47.0); HEMOGLOBIN 12.3 g/dl (12.0-15.5); LYMPH # 1.5 10^3/uL (1.5-5.0); LYMPH % 26.1 % (24.0-44.0); MEAN CORPUSCULAR HEMOGLOBIN 29.2 pg (27.0-33.0); MEAN CORPUSCULAR HGB CONC 32.7 g/dl (32.0-36.5); MEAN CORPUSCULAR VOLUME 89.3 fl (80.0-96.0); MONO # 0.6 10^3/uL (0.0-0.8); MONO % 10.3 % (2.0-8.0); NEUTROPHILS # 3.2 10^3/uL (1.5-8.5); NEUTROPHILS % 57.4 % (36.0-66.0); PLATELET COUNT, AUTOMATED 203 10^3/uL (150-450); RED BLOOD COUNT 4.21 10^6/uL (4.00-5.40); WHITE BLOOD COUNT 5.6 10^3/uL (4.0-10.0)
[2021-04-23 11:36] LABS: ALBUMIN 3.9 GM/DL (3.2-5.2); BILIRUBIN,TOTAL 0.5 MG/DL (0.2-1.0); CALCIUM LEVEL 9.6 MG/DL (8.8-10.2); CHOLESTEROL RISK RATIO 2.696 (<5); CREATININE FOR GFR 1.14 MG/DL (0.55-1.30); GLOMERULAR FILTRATION RATE 50.2 (>39); MAGNESIUM LEVEL 1.8 MG/DL (1.8-2.4); POTASSIUM SERUM 4.5 MEQ/L (3.5-5.1)
[2021-04-23 11:50] LABS: MALB URINE SIEMENS 11.7 MG/L; MAU/CREAT RATIO 10.2 MCG/MG (0.0-30.0)
[2021-04-23 12:15] LABS: HEMOGLOBIN A1c 5.8 %
== END ==
LOC: M PLALAB 09:04
PROVIDERS: ATTEND Internal Medicine
DX: I10 Essential (primary) hypertension (principal); E78.00 Pure hypercholesterolemia, unspecified; E11.9 Type 2 diabetes mellitus without complications; Z86.010 Personal history of colon polyps

== ENCOUNTER → 2021-04-26 | Outpatient (REF) | payer MEDICARE | LOC: M SFHCPLAZ 18:19 | PROVIDERS: ATTEND Internal Medicine | DX: N39.0 Urinary tract infection, site not specified (principal) ==

== ENCOUNTER → 2021-05-14 | Outpatient (CLI) | payer MEDICARE ==
[2021-05-14 10:10] LABS: BASO # 0.1 10^3/uL (0.0-0.2); BASO % 1.5 % (0.0-1.0); EOS # 0.4 10^3/uL (0.0-0.5); EOS % 6.4 % (0.0-3.0); HEMATOCRIT 36.6 % (36.0-47.0); LYMPH % 33.5 % (24.0-44.0); MEAN CORPUSCULAR HEMOGLOBIN 29.8 pg (27.0-33.0); MEAN CORPUSCULAR HGB CONC 32.8 g/dl (32.0-36.5); MEAN CORPUSCULAR VOLUME 90.8 fl (80.0-96.0); MONO # 0.6 10^3/uL (0.0-0.8); NEUTROPHILS # 2.8 10^3/uL (1.5-8.5); NEUTROPHILS % 48.3 % (36.0-66.0); PLATELET COUNT, AUTOMATED 316 10^3/uL (150-450); RED BLOOD COUNT 4.03 10^6/uL (4.00-5.40); WHITE BLOOD COUNT 5.8 10^3/uL (4.0-10.0)
[2021-05-14 10:50] LABS: ALBUMIN 3.6 GM/DL (3.2-5.2); PERCENT SATURATION 22.6 % (13.2-45.0)
== END ==
LOC: M PLALAB 08:20
PROVIDERS: ATTEND Orthopaedic Surgery
DX: Z01.818 Encounter for other preprocedural examination (principal)

== ENCOUNTER → 2021-05-22 | Outpatient (REF) | payer MEDICARE ==
[2021-05-22 13:29] LABS: APPEARANCE, URINE CLEAR (CLEAR); BACTERIA, URINE AUTO NEGATIVE (NEGATIVE); BILIRUBIN, URINE AUTO NEGATIVE (NEGATIVE); BLOOD, URINE BLOOD NEGATIVE (NEGATIVE); COLOR, URINE YELLOW (YELLOW); GLUCOSE, URINE (UA) AUTO NEGATIVE (NEGATIVE); KETONE, URINE AUTO NEGATIVE (NEGATIVE); LEUKOCYTE ESTERASE, URINE AUTO NEGATIVE (NEGATIVE); NITRITE, URINE AUTO NEGATIVE (NEGATIVE); PROTEIN, URINE AUTO NEGATIVE (NEGATIVE); RBC, URINE AUTO 0 /HPF (0-3); SPECIFIC GRAVITY URINE AUTO 1.008 (1.002-1.035); SQUAMOUS EPITHELIAL CELL UR AU 0 /HPF (0-6); UROBILINOGEN, URINE AUTO 0.2 mg/dL (0.0-2.0); WBC, URINE AUTO 2 /HPF (0-3)
== END ==
LOC: M SFHCPLAZ 12:52
PROVIDERS: ATTEND Internal Medicine
DX: N39.0 Urinary tract infection, site not specified (principal)

== ENCOUNTER → 2021-10-22 | Outpatient (CLI) | payer MEDICARE ==
[2021-10-22 11:28] LABS: HEMOGLOBIN A1c 5.7 %
[2021-10-22 11:51] LABS: ALBUMIN 3.8 GM/DL (3.2-5.2); BILIRUBIN,TOTAL 0.5 MG/DL (0.2-1.0); CALCIUM LEVEL 9.9 MG/DL (8.8-10.2); CREATININE FOR GFR 1.12 MG/DL (0.55-1.30); GLOMERULAR FILTRATION RATE 51.1 (>39); MAGNESIUM LEVEL 1.9 MG/DL (1.8-2.4); POTASSIUM SERUM 4.5 MEQ/L (3.5-5.1); TOTAL PROTEIN 7.2 GM/DL (6.4-8.2)
== END ==
LOC: M PLALAB 07:51
PROVIDERS: ATTEND Internal Medicine
DX: I10 Essential (primary) hypertension (principal)

== ENCOUNTER → 2022-04-25 | Outpatient (CLI) | payer MEDICARE ==
[2022-04-25 14:20] LABS: HEMATOCRIT 36.6 % (36.0-47.0); HEMOGLOBIN 11.9 g/dl (12.0-15.5); MEAN CORPUSCULAR HGB CONC 32.5 g/dl (32.0-36.5); MEAN CORPUSCULAR VOLUME 92.2 fl (80.0-96.0); PLATELET COUNT, AUTOMATED 206 10^3/uL (150-450); RED BLOOD COUNT 3.97 10^6/uL (4.00-5.40); WHITE BLOOD COUNT 5.8 10^3/uL (4.0-10.0)
[2022-04-25 14:32] LABS: C REACTIVE PROTEIN QUANTITATIV < 0.40 MG/DL (<1.0)
[2022-04-25 14:35] LABS: CREATININE, URINE 51.3 MG/DL; MALB URINE SIEMENS < 3.0 MG/L; MAU/CREAT RATIO 5.8 MCG/MG (0.0-30.0)
[2022-04-25 14:41] LABS: ALBUMIN 3.7 G/DL (3.2-5.2); ALKALINE PHOSPHATASE 69 U/L (46-116); ALT/SGPT 22 U/L (7.0-40); AST/SGOT 22 U/L (<34); BILIRUBIN,TOTAL 0.7 MG/DL (0.3-1.2); BLOOD UREA NITROGEN 26 MG/DL (9-23); CALCIUM LEVEL 9.2 MG/DL (8.3-10.6); CARBON DIOXIDE LEVEL 27 MMOL/L (20-31); CHLORIDE LEVEL 104 MMOL/L (98-107); CHOLESTEROL LEVEL 217 MG/DL (<200); CHOLESTEROL RISK RATIO 2.93 (<5); CREATININE FOR GFR 1.15 MG/DL (0.55-1.30); FREE T4 1.21 NG/DL (0.89-1.76); GLOMERULAR FILTRATION RATE 49.5 (>39); GLUCOSE, FASTING 114 MG/DL (74-106); HDL CHOLESTEROL 73.9 MG/DL (>40); LDL CHOLESTEROL 119.3 MG/DL (<100); NON-HDL-C 143.1 MG/DL; POTASSIUM SERUM 4.3 MMOL/L (3.5-5.1); SODIUM LEVEL 139 MMOL/L (136-145); THYROID STIMULATING HORMONE 0.942 uIU/ML (0.55-4.78); TOTAL 25(OH) VITAMIN D 51.3 NG/ML (20.0-100.0); TOTAL PROTEIN 6.4 G/DL (5.7-8.2); TRIGLYCERIDES LEVEL 119 MG/DL (<150); VITAMIN B12 LEVEL 492 PG/ML (211-911)
[2022-04-25 16:05] LABS: HEMOGLOBIN A1c 5.3 % (4.0-6.0)
== END ==
LOC: M LAB 13:16
PROVIDERS: ATTEND Internal Medicine Hematology
DX: E78.00 Pure hypercholesterolemia, unspecified (principal); K57.92 Diverticulitis of intestine, part unspecified, without perforation or abscess without bleeding; R14.1 Gas pain; K59.00 Constipation, unspecified; K21.9 Gastro-esophageal reflux disease without esophagitis; E56.9 Vitamin deficiency, unspecified; Z79.899 Other long term (current) drug therapy

== ENCOUNTER → 2022-04-25 | Outpatient (CLI) | payer MEDICARE ==
[2022-04-25 14:33] LABS: CALCIUM LEVEL 9.4 MG/DL (8.3-10.6); CREATININE FOR GFR 1.15 MG/DL (0.55-1.30); GLOMERULAR FILTRATION RATE 49.5 (>39); MAGNESIUM LEVEL 1.8 MG/DL (1.8-2.4); POTASSIUM SERUM 4.2 MMOL/L (3.5-5.1)
[2022-04-25 14:36] LABS: TOTAL 25(OH) VITAMIN D 53.5 NG/ML (20.0-100.0)
== END ==
LOC: M LAB 13:13
PROVIDERS: ATTEND Nurse Practitioner
DX: K57.92 Diverticulitis of intestine, part unspecified, without perforation or abscess without bleeding (principal); R14.1 Gas pain; K59.00 Constipation, unspecified; K21.9 Gastro-esophageal reflux disease without esophagitis; E56.9 Vitamin deficiency, unspecified

== ENCOUNTER → 2022-04-28 | Outpatient (CLI) | payer MEDICARE ==
[~2022-04-28] MED LIST changes: +GASTROGRAFIN SOLUTION 30ML As Ordered ONE; +ISOVUE-370 76% 100ML VIAL As Ordered ONE
== END ==
LOC: M RAD 06:57
PROVIDERS: ATTEND Nurse Practitioner
DX: K57.92 Diverticulitis of intestine, part unspecified, without perforation or abscess without bleeding (principal); R14.1 Gas pain
CPT/HCPCS: 74177; Q9963; Q9967

== ENCOUNTER → 2022-10-29 | Outpatient (CLI) | payer MEDICARE ==
[~2022-10-29] MED LIST changes: +FLUT50SP17 NARES; -FLUTISP NARES; -GASTROGRAFIN SOLUTION 30ML As Ordered ONE; -HYDR200T3 PO; +HYDR200T46 PO; -ISOVUE-370 76% 100ML VIAL As Ordered ONE
[2022-10-29 10:23] LABS: HEMATOCRIT 36.3 % (36.0-47.0); HEMOGLOBIN 11.7 g/dl (12.0-15.5); MEAN CORPUSCULAR HEMOGLOBIN 29.8 pg (27.0-33.0); MEAN CORPUSCULAR HGB CONC 32.2 g/dl (32.0-36.5); MEAN CORPUSCULAR VOLUME 92.4 fl (80.0-96.0); PLATELET COUNT, AUTOMATED 199 10^3/uL (150-450); RED BLOOD COUNT 3.93 10^6/uL (4.00-5.40); WHITE BLOOD COUNT 3.9 10^3/uL (4.0-10.0)
[2022-10-29 10:32] LABS: ALBUMIN 3.6 G/DL (3.2-5.2); ALKALINE PHOSPHATASE 69 U/L (46-116); ALT/SGPT 25 U/L (7.0-40); AST/SGOT 13 U/L (<34); BILIRUBIN,TOTAL 0.6 MG/DL (0.3-1.2); BLOOD UREA NITROGEN 21 MG/DL (9-23); CALCIUM LEVEL 9.4 MG/DL (8.3-10.6); CARBON DIOXIDE LEVEL 30 MMOL/L (20-31); CHLORIDE LEVEL 107 MMOL/L (98-107); CHOLESTEROL LEVEL 221 MG/DL (<200); CREATININE FOR GFR 1.06 MG/DL (0.55-1.30); GLOMERULAR FILTRATION RATE 54.2 (>39); GLUCOSE, FASTING 91 MG/DL (74-106); HDL CHOLESTEROL 76.2 MG/DL (>40); LDL CHOLESTEROL 124.2 MG/DL (<100); NON-HDL-C 144.8 MG/DL; POTASSIUM SERUM 4.3 MMOL/L (3.5-5.1); SODIUM LEVEL 144 MMOL/L (136-145); TOTAL PROTEIN 6.5 G/DL (5.7-8.2); TRIGLYCERIDES LEVEL 103 MG/DL (<150)
[2022-10-29 10:33] LABS: THYROID STIMULATING HORMONE 1.358 uIU/ML (0.55-4.78); TOTAL 25(OH) VITAMIN D 48.5 NG/ML (20.0-100.0); VITAMIN B12 LEVEL 518 PG/ML (211-911)
[2022-10-29 10:34] LABS: FREE T4 1.16 NG/DL (0.89-1.76)
[2022-10-29 10:50] LABS: CREATININE, URINE 144.6 MG/DL; MAU/CREAT RATIO 3.4 MCG/MG (0.0-30.0)
[2022-10-29 11:00] LABS: HEMOGLOBIN A1c 5.9 % (4.0-6.0)
[2022-10-30 08:45] LABS: C REACTIVE PROTEIN QUANTITATIV < 0.40 MG/DL (<1.0)
== END ==
LOC: M PLALAB 08:37
PROVIDERS: ATTEND Internal Medicine Hematology
DX: E78.00 Pure hypercholesterolemia, unspecified (principal); Z79.899 Other long term (current) drug therapy

== ENCOUNTER → 2022-11-06 | Outpatient (CLI) | payer MEDICARE, MEDICAID ==
[2022-11-06 10:39] LABS: BASO # 0.1 10^3/uL (0.0-0.2); BASO % 0.9 % (0.0-1.0); EOS # 0.2 10^3/uL (0.0-0.5); HEMATOCRIT 38.4 % (36.0-47.0); HEMOGLOBIN 12.3 g/dl (12.0-15.5); LYMPH # 1.1 10^3/uL (1.5-5.0); LYMPH % 20.3 % (24.0-44.0); MEAN CORPUSCULAR HEMOGLOBIN 29.9 pg (27.0-33.0); MEAN CORPUSCULAR VOLUME 93.2 fl (80.0-96.0); MONO # 0.5 10^3/uL (0.0-0.8); NEUTROPHILS # 3.6 10^3/uL (1.5-8.5); NEUTROPHILS % 65.6 % (36.0-66.0); PLATELET COUNT, AUTOMATED 194 10^3/uL (150-450); RED BLOOD COUNT 4.12 10^6/uL (4.00-5.40); WHITE BLOOD COUNT 5.4 10^3/uL (4.0-10.0)
[2022-11-06 11:11] LABS: PERCENT SATURATION 17.2 % (13.2-45.0)
== END ==
LOC: M PLALAB 08:26
PROVIDERS: ATTEND Internal Medicine Hematology
DX: D64.9 Anemia, unspecified (principal)

== ENCOUNTER → 2023-03-03 | Outpatient (CLI) | payer MEDICARE, MEDICAID ==
[~2023-03-03] MED LIST changes: -FLUT50SP17 NARES; +FLUTISP NARES
== END ==
LOC: M PLAIMG 10:36
PROVIDERS: ATTEND Family Medicine
DX: Z96.652 Presence of left artificial knee joint (principal); M25.562 Pain in left knee; Z91.81 History of falling

== ENCOUNTER 2023-06-13 12:11 | Inpatient (IN) | payer MEDICARE, MEDICAID ==
[~2023-06-13] VITALS: Ht 162.6 cm; Wt 80.0 kg
[~2023-06-13 12:11] MED LIST changes: -ICYCRE TOP; +METH35.4 TOP
[2023-06-13] MEDS: KETOROLAC 30 MG/ML 1ML VIAL IM ONE (13:17)
[2023-06-13 16:42] LABS: BASO # 0.1 10^3/uL (0.0-0.2); BASO % 0.4 % (0.0-1.0); EOS # 0.1 10^3/uL (0.0-0.5); EOS % 0.7 % (0.0-3.0); HEMATOCRIT 33.7 % (36.0-47.0); HEMOGLOBIN 11.4 g/dl (12.0-15.5); LYMPH # 2.2 10^3/uL (1.5-5.0); LYMPH % 18.9 % (24.0-44.0); MEAN CORPUSCULAR HEMOGLOBIN 30.3 pg (27.0-33.0); MEAN CORPUSCULAR HGB CONC 33.8 g/dl (32.0-36.5); MEAN CORPUSCULAR VOLUME 89.6 fl (80.0-96.0); MONO % 8.4 % (2.0-8.0); NEUTROPHILS # 8.3 10^3/uL (1.5-8.5); NEUTROPHILS % 71.3 % (36.0-66.0); PLATELET COUNT, AUTOMATED 223 10^3/uL (150-450); RED BLOOD COUNT 3.76 10^6/uL (4.00-5.40); WHITE BLOOD COUNT 11.6 10^3/uL (4.0-10.0)
[2023-06-13 16:54] LABS: INR 0.96; PARTIAL THROMBOPLASTIN TIME 27.2 SECONDS (24.8-34.2); PROTHROMBIN TIME 12.5 SECONDS (12.5-14.5)
[2023-06-13 17:45] LABS: BILIRUBIN,DIRECT 0.1 MG/DL (<0.4); BILIRUBIN,TOTAL 0.5 MG/DL (0.3-1.2); CALCIUM LEVEL 9.5 MG/DL (8.3-10.6); CREATININE FOR GFR 1.14 MG/DL (0.55-1.30); GLOMERULAR FILTRATION RATE 49.9 (>39); THYROID STIMULATING HORMONE 0.711 uIU/ML (0.55-4.78); TOTAL PROTEIN 6.7 G/DL (5.7-8.2)
[2023-06-13] MEDS: ONDANSETRON 4MG 2ML VIAL IV ONE (18:00)
[2023-06-13] MEDS: MORPHINE 2 MG/ML 1ML VIAL IV PRN (18:00)
[2023-06-13] MEDS ORDERED: VITA200044 PO (19:18)
[2023-06-13] MEDS ORDERED: ESOM0.1C PO (19:18)
[2023-06-13] MEDS ORDERED: CALCTAB89 PO (19:18)
[2023-06-13] MEDS ORDERED: B-12100010 PO (19:22)
[2023-06-13] MEDS ORDERED: PRED5TA PO (19:22)
[2023-06-13] MEDS ORDERED: ANAS1TAB2 PO (19:22)
[2023-06-13] MEDS ORDERED: B COCAP4 PO (19:22)
[2023-06-13] MEDS ORDERED: ALPH600C PO (19:22)
[2023-06-13] MEDS ORDERED: AMLO1TAB25 PO (19:22)
[2023-06-13] MEDS ORDERED: HUMI40IN2 INJ (19:22)
[2023-06-13] MEDS ORDERED: HOME MED LIST COMPLETE! XX SCH (19:25)
[2023-06-13] MEDS ORDERED: GLUCOSE 4 GM CHEW PO PRN (19:55)
[2023-06-13] MEDS ORDERED: MOM 30ML SUSPENSION UDC PO PRN (19:55)
[2023-06-13] MEDS ORDERED: DEXTROSE 50% 50ML SYRINGE IV PRN (19:55)
[2023-06-13] MEDS ORDERED: MAALOX 30 ML SUSP *UDC PO PRN (19:55)
[2023-06-13] MEDS ORDERED: GLUCAGON INJ 1MG VIAL SC PRN (19:55)
[2023-06-13] MEDS: MIRALAX *UNIT DOSE* 17GM PACKET PO SCH (20:31)
[2023-06-13] MEDS: DOCUSATE SODIUM 100MG CAPSULE PO SCH (20:31)
[2023-06-13] MEDS: LR 1,000 ML IV SCH (20:32)
[2023-06-13] MEDS: SODIUM CHLORIDE NASAL 0.65% SPRAY BTL (OCEAN) SCH (21:00)
[2023-06-13] MEDS ORDERED: INSULIN LISPRO (NovoLOG) PER UNIT SC SCH (21:00)
[2023-06-13 21:27] VITALS: BP 132/66; TEMP 98.6; O2SAT 96
[2023-06-14] VITALS (7 sets, daily range): BP systolic 134–148; BP diastolic 59–66; TEMP 97.7–98.6; O2SAT 94–97
[2023-06-14] MEDS ORDERED: KETOROLAC 30 MG/ML 1ML VIAL IV PRN ×2 (03:05)
[2023-06-14] MEDS: ACETAMINOPHEN *IV* 1,000 MG in IV 1 EA IV ONE (03:16)
[2023-06-14] MEDS: METHOCARBAMOL 1,000 MG/10 ML VIAL IV ONE (03:16)
[2023-06-14 06:56] LABS: HEMATOCRIT 29.8 % (36.0-47.0); MEAN CORPUSCULAR HEMOGLOBIN 30.6 pg (27.0-33.0); MEAN CORPUSCULAR HGB CONC 33.6 g/dl (32.0-36.5); MEAN CORPUSCULAR VOLUME 91.1 fl (80.0-96.0); PLATELET COUNT, AUTOMATED 148 10^3/uL (150-450); RED BLOOD COUNT 3.27 10^6/uL (4.00-5.40); WHITE BLOOD COUNT 6.7 10^3/uL (4.0-10.0)
[2023-06-14 07:26] LABS: ALBUMIN 3.1 G/DL (3.2-5.2); BILIRUBIN,TOTAL 0.8 MG/DL (0.3-1.2); CALCIUM LEVEL 9.1 MG/DL (8.3-10.6); CREATININE FOR GFR 1.09 MG/DL (0.55-1.30); GLOMERULAR FILTRATION RATE 52.5 (>39); MAGNESIUM LEVEL 1.7 MG/DL (1.8-2.4); TOTAL PROTEIN 5.5 G/DL (5.7-8.2)
[2023-06-14] MEDS ORDERED: INSULIN LISPRO (NovoLOG) PER UNIT SC SCH (07:30)
[2023-06-14] MEDS: ceFAZolin 2 GM/D5W 50 ML IV BAG As Ordered ONE (12:38)
[2023-06-14] MEDS: TRANEXAMIC ACID 100 MG/ML 10ML VIAL As Ordered ONE (12:38)
[2023-06-14] MEDS ORDERED: MIDAZOLAM INJ 2MG/2ML VIAL As Ordered ONE (13:23)
[2023-06-14] MEDS ORDERED: fentaNYL 100 MCG/2 ML INJECTION As Ordered ONE (13:23)
[2023-06-14] MEDS ORDERED: ACETAMINOPHEN 1000MG 100ML IV BAG As Ordered ONE (13:23)
[2023-06-14] MEDS ORDERED: ROCURONIUM BROMIDE 50MG/5ML VIAL As Ordered ONE (13:23)
[2023-06-14] MEDS ORDERED: METOCLOPRAMIDE INJ 10MG/2ML VIAL As Ordered ONE (13:23)
[2023-06-14] MEDS ORDERED: propofoL 200 MG/20 ML VIAL As Ordered ONE (13:23)
[2023-06-14] MEDS ORDERED: LIDOCAINE 2% 100MG/5ML SDV (FOR ANES.) As Ordered ONE (13:23)
[2023-06-14] MEDS ORDERED: ONDANSETRON 4MG 2ML VIAL As Ordered ONE (13:23)
[2023-06-14] MEDS ORDERED: ePHEDrine SULFATE 25 MG/5 ML(5MG/ML) SYRINGE As Ordered ONE (13:40)
[2023-06-14] MEDS ORDERED: ONDANSETRON 4MG 2ML VIAL IV PRN (14:00)
[2023-06-14] MEDS ORDERED: METOCLOPRAMIDE INJ 10MG/2ML VIAL IV PRN (14:00)
[2023-06-14] MEDS ORDERED: MEPERIDINE 25 MG/ML 1ML VIAL IV PRN (14:00)
[2023-06-14] MEDS ORDERED: PROMETHAZINE 25MG/ML 1ML VIAL IV PRN (14:00)
[2023-06-14] MEDS ORDERED: fentaNYL 100 MCG/2 ML INJECTION IV PRN (14:00)
[2023-06-14] MEDS ORDERED: SUGAMMADEX SODIUM 500 MG/5 ML VIAL (BRIDION) As Ordered ONE (14:06)
[2023-06-14] MEDS: oxyCODONE 5MG TAB PO PRN (14:56)
[2023-06-14] MEDS: HYDROMORPHONE HCL 0.5 MG/ 0.5 ML SYRINGE IV PRN (14:57)
[2023-06-14] MEDS: PANTOPRAZOLE 40MG VIAL IV SCH (15:54)
[2023-06-14] MEDS: MAG SULF 1GM/100ML (MAG RUN) 1 GM in IV 1 EA IV ONE (16:06)
[2023-06-15 01:26] VITALS: BP 137/63; TEMP 97; O2SAT 96
[2023-06-15 06:12] VITALS: BP 131/58; TEMP 97.7; O2SAT 95
[2023-06-15 06:39] LABS: BASO % 0.1 % (0.0-1.0); EOS % 0.1 % (0.0-3.0); HEMATOCRIT 30.9 % (36.0-47.0); HEMOGLOBIN 10.5 g/dl (12.0-15.5); MEAN CORPUSCULAR HEMOGLOBIN 30.4 pg (27.0-33.0); MEAN CORPUSCULAR VOLUME 89.6 fl (80.0-96.0); MONO # 0.7 10^3/uL (0.0-0.8); MONO % 8.5 % (2.0-8.0); NEUTROPHILS # 6.9 10^3/uL (1.5-8.5); PLATELET COUNT, AUTOMATED 181 10^3/uL (150-450); RED BLOOD COUNT 3.45 10^6/uL (4.00-5.40); WHITE BLOOD COUNT 8.7 10^3/uL (4.0-10.0)
[2023-06-15 07:05] LABS: BILIRUBIN,TOTAL 0.6 MG/DL (0.3-1.2); CALCIUM LEVEL 8.6 MG/DL (8.3-10.6); CREATININE FOR GFR 0.99 MG/DL (0.55-1.30); GLOMERULAR FILTRATION RATE 58.7 (>39); MAGNESIUM LEVEL 1.9 MG/DL (1.8-2.4); POTASSIUM SERUM 4.3 MMOL/L (3.5-5.1); TOTAL PROTEIN 5.6 G/DL (5.7-8.2)
[2023-06-15] MEDS: ACETAMINOPHEN TAB 650MG DOSE (2X325MG) PO PRN (09:49)
[2023-06-15] MEDS ORDERED: ceFAZolin SOD 2 GM in IV 1 EA IV SCH (11:00)
[2023-06-15] MEDS: CYANOCOBALAMIN 500 MCG TAB PO SCH (11:10)
[2023-06-15] MEDS: CALCIUM CARBONATE 500 MG CHEW U/D PO SCH (11:10)
[2023-06-15] MEDS: HYDROXYCHLOROQUINE 200 MG TAB PO SCH (11:10)
[2023-06-15] MEDS: ENOXAPARIN 40MG/0.4ML SYRINGE (J1650 PER 10MG) SC SCH (11:11)
[2023-06-15] MEDS: VITAMIN D 1,000 INTERNATIONAL UNITS TABLET PO SCH (11:11)
[2023-06-15] MEDS: UNRESOLVED PATIENT OWN MED ORDER XX SCH (11:12)
[2023-06-15 11:20] LABS: PHOSPHORUS LEVEL 4.4 MG/DL (2.4-5.1)
[2023-06-15 14:38] VITALS: BP 138/66; TEMP 97.5; O2SAT 96
[2023-06-15] MEDS: ANASTROZOLE 1MG TABLET (PATIENT'S OWN MED) PO SCH (19:19)
[2023-06-15 20:55] VITALS: BP 142/68; TEMP 98.6; O2SAT 96
[2023-06-16 06:39] VITALS: BP 144/53; TEMP 98.1; O2SAT 96
[2023-06-16 07:18] LABS: BASO % 0.6 % (0.0-1.0); EOS # 0.2 10^3/uL (0.0-0.5); EOS % 3.2 % (0.0-3.0); HEMATOCRIT 30.6 % (36.0-47.0); HEMOGLOBIN 10.2 g/dl (12.0-15.5); LYMPH # 2.2 10^3/uL (1.5-5.0); LYMPH % 30.6 % (24.0-44.0); MEAN CORPUSCULAR HEMOGLOBIN 29.9 pg (27.0-33.0); MEAN CORPUSCULAR HGB CONC 33.3 g/dl (32.0-36.5); MEAN CORPUSCULAR VOLUME 89.7 fl (80.0-96.0); MONO # 0.7 10^3/uL (0.0-0.8); NEUTROPHILS % 55.5 % (36.0-66.0); PLATELET COUNT, AUTOMATED 186 10^3/uL (150-450); RED BLOOD COUNT 3.41 10^6/uL (4.00-5.40); WHITE BLOOD COUNT 7.2 10^3/uL (4.0-10.0)
[2023-06-16 07:40] LABS: CREATININE FOR GFR 1.03 MG/DL (0.55-1.30); GLOMERULAR FILTRATION RATE 56.1 (>39); POTASSIUM SERUM 4.1 MMOL/L (3.5-5.1)
[2023-06-16 08:45] VITALS: BP 160/72; TEMP 98.2; O2SAT 98
[2023-06-16 08:53] VITALS: BP 160/72
[2023-06-16] MEDS: OMEPRAZOLE 20MG CAP PO SCH (08:54)
[2023-06-16 12:57] VITALS: BP 143/81; TEMP 97.2; O2SAT 99
[2023-06-16] MEDS ORDERED: COLA100C5 PO (15:13)
[2023-06-16] MEDS ORDERED: MIRA33506 PO (15:13)
[2023-06-16] MEDS ORDERED: OMEP-173 PO (15:13)
[2023-06-16] MEDS ORDERED: LOVE1INJ SC (15:13)
[2023-06-16] MEDS ORDERED: ACET1TAB55 PO (15:13)
[2023-06-16 16:01] LABS: TOTAL VOLUME, URINE 2000 ML
[2023-06-16 16:39] LABS: CALCIUM, URINE < 5.0 MG/DL
== END 2023-06-16 15:30 | DRG 482 ==
LOC: EDBD 12:11 → M ED 12:11 → M ED INP 19:55 → M MS5PR 21:00
PROVIDERS: ADMIT Internal Medicine; ATTEND Internal Medicine
PROC: 0QS734Z Reposition Left Upper Femur with Internal Fixation Device, Percutaneous Approach (ICD-10-PCS; principal; 2023-06-14 09:30)
DX: S72.002A Fracture of unspecified part of neck of left femur, initial encounter for closed fracture (principal); I10 Essential (primary) hypertension; M06.9 Rheumatoid arthritis, unspecified; E78.00 Pure hypercholesterolemia, unspecified; K21.9 Gastro-esophageal reflux disease without esophagitis; K75.81 Nonalcoholic steatohepatitis (NASH); K59.01 Slow transit constipation; Z96.652 Presence of left artificial knee joint; Z88.0 Allergy status to penicillin; Z88.8 Allergy status to other drugs, medicaments and biological substances; Z88.2 Allergy status to sulfonamides; Z88.5 Allergy status to narcotic agent; Z79.899 Other long term (current) drug therapy; Z85.3 Personal history of malignant neoplasm of breast; R53.83 Other fatigue; Z85.828 Personal history of other malignant neoplasm of skin; W18.09XA Striking against other object with subsequent fall, initial encounter; Y92.009 Unspecified place in unspecified non-institutional (private) residence as the place of occurrence of the external cause

== ENCOUNTER 2023-06-16 13:20 | Inpatient (IN) | payer MEDICARE, MEDICAID ==
[~2023-06-16] VITALS: Ht 162.6 cm; Wt 80.6 kg
[~2023-06-16 13:20] MED LIST changes: +ALPH600C PO; +AMLO1TAB25 PO; +ANAS1TAB2 PO; +B COCAP4 PO; +B-12100010 PO; +CALCTAB89 PO; +ESOM0.1C PO; +HUMI40IN2 INJ; +PRED5TA PO; +VITA200044 PO
[2023-06-16] MEDS ORDERED: COLA100C5 PO (15:13)
[2023-06-16] MEDS ORDERED: LOVE1INJ SC (15:13)
[2023-06-16] MEDS ORDERED: OMEP-173 PO (15:13)
[2023-06-16] MEDS ORDERED: MIRA33506 PO (15:13)
[2023-06-16] MEDS ORDERED: ACET1TAB55 PO (15:13)
[2023-06-16 15:45] VITALS: BP 144/63; TEMP 97.7; O2SAT 99
[2023-06-16] MEDS ORDERED: MAALOX 30 ML SUSP *UDC PO PRN (15:50)
[2023-06-16] MEDS ORDERED: oxyCODONE 5MG TAB PO PRN (15:50)
[2023-06-16] MEDS: ACETAMINOPHEN 500 MG TAB PO SCH (16:48)
[2023-06-16] MEDS: SODIUM CHLORIDE NASAL 0.65% SPRAY BTL (OCEAN) SCH (16:48)
[2023-06-16 20:00] VITALS: BP 140/66; TEMP 97.6; O2SAT 99
[2023-06-16] MEDS: HYDROXYCHLOROQUINE 200 MG TAB PO SCH (20:44)
[2023-06-16] MEDS: DOCUSATE SODIUM 100MG CAPSULE PO SCH (20:45)
[2023-06-16] MEDS: ANASTROZOLE 1MG TABLET (PATIENT'S OWN MED) PO SCH (20:57)
[2023-06-17] MEDS: oxyCODONE 5MG TAB PO PRN ×3 (04:12→20:12)
[2023-06-17 06:11] VITALS: BP 153/66; TEMP 98.1; O2SAT 95
[2023-06-17] MEDS: MIRALAX *UNIT DOSE* 17GM PACKET PO SCH (07:37)
[2023-06-17] MEDS: VITAMIN D 1,000 INTERNATIONAL UNITS TABLET PO SCH (09:18)
[2023-06-17] MEDS: OMEPRAZOLE 20MG CAP PO SCH (09:18)
[2023-06-17] MEDS: ENOXAPARIN 40MG/0.4ML SYRINGE (J1650 PER 10MG) SC SCH (09:19)
[2023-06-17] MEDS: CYANOCOBALAMIN 500 MCG TAB PO SCH (09:19)
[2023-06-17] MEDS ORDERED: MIRALAX *UNIT DOSE* 17GM PACKET PO PRN (12:10)
[2023-06-17] MEDS: DICLOFENAC EPOLAMINE 1.3% PATCH TOP SCH (13:11)
[2023-06-17 14:00] VITALS: BP 122/56; TEMP 98; O2SAT 98
[2023-06-17 21:04] VITALS: BP 138/66; TEMP 97.5; O2SAT 97
[2023-06-18 06:10] VITALS: BP 141/60; TEMP 97.9; O2SAT 93
[2023-06-18 14:00] VITALS: BP 130/62; TEMP 98.1; O2SAT 98
[2023-06-18 20:25] VITALS: BP 124/57; TEMP 98.2; O2SAT 97
[2023-06-19 06:00] VITALS: BP 145/64; TEMP 97.6; O2SAT 96
[2023-06-19 07:15] LABS: HEMATOCRIT 32.2 % (36.0-47.0); HEMOGLOBIN 10.4 g/dl (12.0-15.5); MEAN CORPUSCULAR HEMOGLOBIN 29.9 pg (27.0-33.0); MEAN CORPUSCULAR HGB CONC 32.3 g/dl (32.0-36.5); MEAN CORPUSCULAR VOLUME 92.5 fl (80.0-96.0); PLATELET COUNT, AUTOMATED 217 10^3/uL (150-450); RED BLOOD COUNT 3.48 10^6/uL (4.00-5.40); WHITE BLOOD COUNT 5.8 10^3/uL (4.0-10.0)
[2023-06-19 13:56] VITALS: BP 143/62; TEMP 97.6; O2SAT 99
[2023-06-19 19:48] VITALS: BP_SYST 100; BP_SYST 110; BP_DIAS 52; BP_DIAS 64; TEMP 97.9; O2SAT 96
[2023-06-20 06:00] VITALS: BP 137/70; TEMP 97.3; O2SAT 98
[2023-06-20] MEDS: CALCIUM CARBONATE 500 MG CHEW U/D PO PRN (07:30)
[2023-06-20 14:00] VITALS: BP 126/60; TEMP 97.6; O2SAT 99
[2023-06-20 20:45] VITALS: BP 129/61; TEMP 97.3; O2SAT 98
[2023-06-21 05:26] VITALS: BP 136/63; TEMP 97.1; O2SAT 100
[2023-06-21 14:00] VITALS: BP 121/56; TEMP 97; O2SAT 98
[2023-06-21 20:05] VITALS: BP 125/59; TEMP 97.5; O2SAT 97
[2023-06-22 06:07] VITALS: BP 129/61; TEMP 97.6; O2SAT 97
[2023-06-22 06:23] LABS: HEMATOCRIT 29.6 % (36.0-47.0); HEMOGLOBIN 9.8 g/dl (12.0-15.5); MEAN CORPUSCULAR HGB CONC 33.1 g/dl (32.0-36.5); MEAN CORPUSCULAR VOLUME 90.5 fl (80.0-96.0); PLATELET COUNT, AUTOMATED 234 10^3/uL (150-450); RED BLOOD COUNT 3.27 10^6/uL (4.00-5.40); WHITE BLOOD COUNT 4.4 10^3/uL (4.0-10.0)
[2023-06-22 14:00] VITALS: BP 108/52; TEMP 97.1; O2SAT 98
[2023-06-22] MEDS ORDERED: ASPI81TA26 PO (18:12)
[2023-06-22] MEDS ORDERED: OXYC-517 PO (18:12)
[2023-06-22 20:00] VITALS: BP 119/56; TEMP 97.5; O2SAT 99
[2023-06-23 06:00] VITALS: BP 137/61; TEMP 97.5; O2SAT 100
[2023-06-23 07:51] VITALS: BP 134/68
== END 2023-06-23 08:10 | disposition home or self-care (01) | DRG 561 ==
LOC: M PM&R 15:34
PROVIDERS: ADMIT Student in an Organized Health Care Education/Training Program; ATTEND Student in an Organized Health Care Education/Training Program
DX: S72.002D Fracture of unspecified part of neck of left femur, subsequent encounter for closed fracture with routine healing (principal); Z85.3 Personal history of malignant neoplasm of breast; I10 Essential (primary) hypertension; K21.9 Gastro-esophageal reflux disease without esophagitis; E78.00 Pure hypercholesterolemia, unspecified; M81.0 Age-related osteoporosis without current pathological fracture; M06.9 Rheumatoid arthritis, unspecified; R53.83 Other fatigue; G62.9 Polyneuropathy, unspecified; K75.81 Nonalcoholic steatohepatitis (NASH); K59.01 Slow transit constipation; Z96.652 Presence of left artificial knee joint; Z85.828 Personal history of other malignant neoplasm of skin; G89.18 Other acute postprocedural pain; Z88.0 Allergy status to penicillin; Z88.2 Allergy status to sulfonamides; Z88.8 Allergy status to other drugs, medicaments and biological substances; Z88.5 Allergy status to narcotic agent; Z79.899 Other long term (current) drug therapy; Z79.82 Long term (current) use of aspirin

== ENCOUNTER → 2023-07-01 | Outpatient (REF) | payer MEDICARE, MEDICAID ==
[~2023-07-01] MED LIST changes: +ACET1TAB55 PO; +ASPI81TA26 PO; +COLA100C5 PO; +LOVE1INJ SC; +MIRA33506 PO; +OMEP-173 PO; +OXYC-517 PO
[2023-07-01 16:32] LABS: ALBUMIN 3.8 G/DL (3.2-5.2); BILIRUBIN,DIRECT 0.1 MG/DL (<0.4); BILIRUBIN,TOTAL 0.4 MG/DL (0.3-1.2); MAGNESIUM LEVEL 1.7 MG/DL (1.8-2.4); TOTAL PROTEIN 6.7 G/DL (5.7-8.2)
[2023-07-01 16:36] LABS: TOTAL 25(OH) VITAMIN D 54.7 NG/ML (20.0-100.0)
== END ==
LOC: M LAB REF 15:04
PROVIDERS: ATTEND Internal Medicine Gastroenterology
DX: K21.9 Gastro-esophageal reflux disease without esophagitis (principal); Z86.010 Personal history of colon polyps; K76.0 Fatty (change of) liver, not elsewhere classified; K59.00 Constipation, unspecified

== ENCOUNTER → 2023-07-30 | Outpatient (CLI) | payer MEDICARE, MEDICAID ==
[~2023-07-30] MED LIST changes: -ESOM0.1C PO; +ESOM20CA2 PO
== END ==
LOC: M SOG 08:01
PROVIDERS: ATTEND Physician Assistant
DX: S72.002D Fracture of unspecified part of neck of left femur, subsequent encounter for closed fracture with routine healing (principal)

== ENCOUNTER 2023-08-14 14:59 | Outpatient (RCR) | payer MEDICARE, MEDICAID | END 2023-08-16 | LOC: M PT 14:59 | PROVIDERS: ATTEND Orthopaedic Surgery | DX: S72.002D Fracture of unspecified part of neck of left femur, subsequent encounter for closed fracture with routine healing (principal) ==

== ENCOUNTER → 2023-08-19 | Outpatient (REF) | payer MEDICARE, MEDICAID ==
[2023-08-19 12:06] LABS: HEMATOCRIT 34.6 % (36.0-47.0); HEMOGLOBIN 11.4 g/dl (12.0-15.5); MEAN CORPUSCULAR HEMOGLOBIN 30.1 pg (27.0-33.0); MEAN CORPUSCULAR HGB CONC 32.9 g/dl (32.0-36.5); MEAN CORPUSCULAR VOLUME 91.3 fl (80.0-96.0); PLATELET COUNT, AUTOMATED 238 10^3/uL (150-450); RED BLOOD COUNT 3.79 10^6/uL (4.00-5.40); WHITE BLOOD COUNT 4.9 10^3/uL (4.0-10.0)
[2023-08-19 12:19] LABS: HEMOGLOBIN A1c 4.9 % (4.0-6.0)
[2023-08-19 12:25] LABS: CREATININE, URINE 74.1 MG/DL
[2023-08-19 12:26] LABS: MALB URINE SIEMENS < 3.0 MG/L
[2023-08-19 12:30] LABS: C REACTIVE PROTEIN QUANTITATIV < 0.40 MG/DL (<1.0)
[2023-08-19 12:31] LABS: ALBUMIN 3.8 G/DL (3.2-5.2); ALKALINE PHOSPHATASE 84 U/L (46-116); ALT/SGPT 22 U/L (7.0-40); AST/SGOT 12 U/L (<34); BILIRUBIN,TOTAL 0.4 MG/DL (0.3-1.2); BLOOD UREA NITROGEN 21 MG/DL (9-23); CALCIUM LEVEL 9.9 MG/DL (8.3-10.6); CARBON DIOXIDE LEVEL 26 MMOL/L (20-31); CHLORIDE LEVEL 108 MMOL/L (98-107); CHOLESTEROL LEVEL 209 MG/DL (<200); CHOLESTEROL RISK RATIO 2.72 (<5); GLOMERULAR FILTRATION RATE > 60.0 (>39); GLUCOSE, FASTING 84 MG/DL (74-106); HDL CHOLESTEROL 76.6 MG/DL (>40); LDL CHOLESTEROL 114.4 MG/DL (<100); NON-HDL-C 132.4 MG/DL; POTASSIUM SERUM 4.5 MMOL/L (3.5-5.1); SODIUM LEVEL 143 MMOL/L (136-145); THYROID STIMULATING HORMONE 1.402 uIU/ML (0.55-4.78); TOTAL 25(OH) VITAMIN D 67.7 NG/ML (20.0-100.0); TOTAL PROTEIN 6.8 G/DL (5.7-8.2); TRIGLYCERIDES LEVEL 90 MG/DL (<150); VITAMIN B12 LEVEL 824 PG/ML (211-911)
[2023-08-20 05:53] LABS: T P ELECTROPHORESIS SO 6.9 g/dL (6.1-8.1)
[2023-08-21 12:17] LABS: FREE KAPPA LIGHT CHAINS SERUM 55.6 mg/L (3.3-19.4); FREE LAMBDA LIGHT CHAINS SERUM 25.9 mg/L (5.7-26.3); KAPPA/LAMBDA RATIO SERUM 2.15 (0.26-1.65)
[2023-08-23 15:02] LABS: VITAMIN B6,PYRIDOXAL PHOSPHATE 70.8 ng/mL (2.1-21.7)
[2023-08-24 08:23] LABS: ALBUMIN SPEP 4.1 g/dL (3.8-4.8); ALPHA-1-GLOBULINS SO 0.3 g/dL (0.2-0.3); ALPHA-2-GLOBULINS SO 0.7 g/dL (0.5-0.9); BETA 2 GLOBULIN 0.5 g/dL (0.2-0.5); BETA-GLOBULIN SO 0.5 g/dL (0.4-0.6); GAMMA GLOBULINS SO 0.9 g/dL (0.8-1.7)
== END ==
LOC: M SFHCPLAZ 10:23
PROVIDERS: ATTEND Internal Medicine Hematology
DX: E11.9 Type 2 diabetes mellitus without complications (principal); G80.9 Cerebral palsy, unspecified; Z79.899 Other long term (current) drug therapy

== ENCOUNTER → 2023-09-10 | Outpatient (CLI) | payer MEDICARE, MEDICAID | LOC: M SOG 07:57 | PROVIDERS: ATTEND Physician Assistant | DX: S72.002D Fracture of unspecified part of neck of left femur, subsequent encounter for closed fracture with routine healing (principal) ==

== ENCOUNTER 2023-09-15 13:00 | Outpatient (RCR) | payer MEDICARE, MEDICAID | END 2023-09-16 | LOC: M PT 13:00 | PROVIDERS: ATTEND Orthopaedic Surgery | DX: S72.002D Fracture of unspecified part of neck of left femur, subsequent encounter for closed fracture with routine healing (principal) ==

== ENCOUNTER 2023-10-13 12:55 | Outpatient (RCR) | payer MEDICARE, MEDICAID | END 2023-10-17 | LOC: M PT 12:55 | PROVIDERS: ATTEND Orthopaedic Surgery | DX: S72.002D Fracture of unspecified part of neck of left femur, subsequent encounter for closed fracture with routine healing (principal) ==

== ENCOUNTER → 2023-10-29 | Outpatient (CLI) | payer MEDICARE, MEDICAID | LOC: M SOG 07:20 | PROVIDERS: ATTEND Physician Assistant | DX: S72.002D Fracture of unspecified part of neck of left femur, subsequent encounter for closed fracture with routine healing (principal) ==

== ENCOUNTER 2023-10-30 12:57 | Outpatient (RCR) | payer MEDICARE, MEDICAID | END 2023-11-16 | LOC: M PT 12:57 | PROVIDERS: ATTEND Orthopaedic Surgery | DX: S72.002D Fracture of unspecified part of neck of left femur, subsequent encounter for closed fracture with routine healing (principal) ==

== ENCOUNTER → 2023-11-09 | Outpatient (CLI) | payer MEDICARE, MEDICAID | LOC: M RAD 07:22 | PROVIDERS: ATTEND Orthopaedic Surgery | DX: S72.002D Fracture of unspecified part of neck of left femur, subsequent encounter for closed fracture with routine healing (principal) ==

== ENCOUNTER 2023-12-23 13:15 | Day surgery (SDC) | payer MEDICARE, MEDICAID ==
[~2023-12-23] VITALS: Ht 162.6 cm; Wt 77.6 kg
[~2023-12-23 13:15] MED LIST changes: +CURC500C2 PO; +HUMI40IN2; +MULTTAB61 PO
[2023-12-23] MEDS ORDERED: GLYCOPYRROLATE INJ 0.2 MG/ML 2 ML VIAL As Ordered ONE (14:23)
[2023-12-23] MEDS ORDERED: propofoL 200 MG/20 ML VIAL As Ordered ONE (14:23)
[2023-12-23] MEDS ORDERED: LIDOCAINE 2% 100MG/5ML SDV (FOR ANES.) As Ordered ONE (14:23)
[2023-12-23] MEDS ORDERED: ONDANSETRON 4MG 2ML VIAL As Ordered ONE (14:24)
[2023-12-23] MEDS ORDERED: fentaNYL 100 MCG/2 ML INJECTION As Ordered ONE (14:25)
[2023-12-23] MEDS ORDERED: MIDAZOLAM INJ 2MG/2ML VIAL As Ordered ONE (14:26)
[2023-12-23] MEDS ORDERED: ROCURONIUM BROMIDE 50MG/5ML VIAL As Ordered ONE (15:23)
[2023-12-23] MEDS: ceFAZolin 2 GM/D5W 50 ML IV BAG As Ordered ONE (15:43)
[2023-12-23] MEDS: TRANEXAMIC ACID 100 MG/ML 10ML VIAL As Ordered ONE (15:49)
[2023-12-23] MEDS ORDERED: ACETAMINOPHEN 1000MG 100ML IV BAG As Ordered ONE (15:53)
[2023-12-23] MEDS ORDERED: ePHEDrine SULFATE 25 MG/5 ML(5MG/ML) SYRINGE As Ordered ONE (16:16)
[2023-12-23] MEDS ORDERED: SUGAMMADEX SODIUM 500 MG/5 ML VIAL (BRIDION) As Ordered ONE (16:47)
[2023-12-23] MEDS ORDERED: oxyCODONE 5MG TAB PO PRN (17:00)
[2023-12-23] MEDS ORDERED: HYDROMORPHONE HCL 0.5 MG/ 0.5 ML SYRINGE IV PRN (17:00)
[2023-12-23] MEDS ORDERED: ONDANSETRON 4MG 2ML VIAL IV PRN (17:00)
[2023-12-23] MEDS ORDERED: fentaNYL 100 MCG/2 ML INJECTION IV PRN (17:00)
[2023-12-23] MEDS ORDERED: NS 1,000 ML IV SCH (17:00)
[2023-12-23 17:55] VITALS: BP 134/61; TEMP 96.8; O2SAT 99
== END 2023-12-23 18:33 | disposition home or self-care (01) ==
LOC: M SDC 13:15
PROVIDERS: ATTEND Orthopaedic Surgery
DX: T84.84XA Pain due to internal orthopedic prosthetic devices, implants and grafts, initial encounter (principal); Y79.2 Prosthetic and other implants, materials and accessory orthopedic devices associated with adverse incidents; J44.9 Chronic obstructive pulmonary disease, unspecified; I10 Essential (primary) hypertension; K21.9 Gastro-esophageal reflux disease without esophagitis; M06.9 Rheumatoid arthritis, unspecified; K76.0 Fatty (change of) liver, not elsewhere classified; Z85.3 Personal history of malignant neoplasm of breast; Z92.3 Personal history of irradiation; Z92.21 Personal history of antineoplastic chemotherapy; Z85.828 Personal history of other malignant neoplasm of skin; Z90.49 Acquired absence of other specified parts of digestive tract; Z79.899 Other long term (current) drug therapy; Z79.52 Long term (current) use of systemic steroids; Z88.5 Allergy status to narcotic agent; Z88.2 Allergy status to sulfonamides; Z88.8 Allergy status to other drugs, medicaments and biological substances; Z88.1 Allergy status to other antibiotic agents; E11.9 Type 2 diabetes mellitus without complications; Z79.620 Long term (current) use of immunosuppressive biologic; Z87.19 Personal history of other diseases of the digestive system
CPT/HCPCS: 20680; 76000; C9290; J0131; J0665; J0690; J1100; J1596; J2250; J2405; J3010

== ENCOUNTER → 2023-12-29 | Outpatient (CLI) | payer MEDICARE, MEDICAID | LOC: M SOG 12:35 | PROVIDERS: ATTEND Physician Assistant | DX: S72.002D Fracture of unspecified part of neck of left femur, subsequent encounter for closed fracture with routine healing (principal) ==

== ENCOUNTER 2024-01-07 12:54 | Outpatient (RCR) | payer MEDICARE, MEDICAID | END 2024-01-16 | LOC: M PT 12:54 | PROVIDERS: ATTEND Physician Assistant | DX: S72.002D Fracture of unspecified part of neck of left femur, subsequent encounter for closed fracture with routine healing (principal) ==

== ENCOUNTER → 2024-02-04 | Outpatient (CLI) | payer MEDICARE, MEDICAID | LOC: M SOG 07:51 | PROVIDERS: ATTEND Physician Assistant | DX: S72.002D Fracture of unspecified part of neck of left femur, subsequent encounter for closed fracture with routine healing (principal); M16.12 Unilateral primary osteoarthritis, left hip; Y93.9 Activity, unspecified; Y92.9 Unspecified place or not applicable ==

== ENCOUNTER 2024-02-08 11:30 | Outpatient (RCR) | payer MEDICARE, MEDICAID | END 2024-02-16 | LOC: M PT 11:30 | PROVIDERS: ATTEND Physician Assistant | DX: S72.002D Fracture of unspecified part of neck of left femur, subsequent encounter for closed fracture with routine healing (principal) ==

== ENCOUNTER 2024-03-17 09:15 | Outpatient (RCR) | payer MEDICARE, MEDICAID | END 2024-03-18 | LOC: M PT 09:15 | PROVIDERS: ATTEND Physician Assistant | DX: S72.002D Fracture of unspecified part of neck of left femur, subsequent encounter for closed fracture with routine healing (principal) ==

== ENCOUNTER 2024-04-04 13:39 | Outpatient (RCR) | payer MEDICARE, MEDICAID | END 2024-04-15 | LOC: M PT 13:39 | PROVIDERS: ATTEND Physician Assistant | DX: S72.002D Fracture of unspecified part of neck of left femur, subsequent encounter for closed fracture with routine healing (principal) ==

== ENCOUNTER → 2024-04-12 | Outpatient (CLI) | payer MEDICARE, MEDICAID | LOC: M SOG 07:48 | PROVIDERS: ATTEND Physician Assistant | DX: M25.561 Pain in right knee (principal) ==

== ENCOUNTER → 2024-04-19 | Outpatient (CLI) | payer MEDICARE, MEDICAID ==
[2024-04-19 15:30] LABS: HEMOGLOBIN 11.9 g/dl (12.0-15.5); MEAN CORPUSCULAR HEMOGLOBIN 30.2 pg (27.0-33.0); MEAN CORPUSCULAR HGB CONC 32.2 g/dl (32.0-36.5); MEAN CORPUSCULAR VOLUME 93.9 fl (80.0-96.0); PLATELET COUNT, AUTOMATED 228 10^3/uL (150-450); RED BLOOD COUNT 3.94 10^6/uL (4.00-5.40); WHITE BLOOD COUNT 4.9 10^3/uL (4.0-10.0)
[2024-04-19 15:44] LABS: ALBUMIN 3.8 G/DL (3.2-5.2); BILIRUBIN,TOTAL 0.6 MG/DL (0.3-1.2); CHOLESTEROL RISK RATIO 2.61 (<5); CREATININE FOR GFR 1.16 MG/DL (0.55-1.30); FERRITIN 61.9 NG/ML (7.3-270.7); GLOMERULAR FILTRATION RATE 48.8 (>39); HDL CHOLESTEROL 81.4 MG/DL (>40); LDL CHOLESTEROL 114.6 MG/DL (<100); NON-HDL-C 131.6 MG/DL; PERCENT SATURATION 34.2 % (13.2-45.0); POTASSIUM SERUM 4.6 MMOL/L (3.5-5.1); TOTAL 25(OH) VITAMIN D 74.9 NG/ML (20.0-100.0); TOTAL PROTEIN 7.1 G/DL (5.7-8.2)
[2024-04-21 11:27] LABS: PROTEIN, TOTAL SO 7.1 g/dL (6.1-8.1)
[2024-04-22 15:03] LABS: FREE KAPPA LIGHT CHAINS SERUM 42.3 mg/L (3.3-19.4); FREE LAMBDA LIGHT CHAINS SERUM 19.6 mg/L (5.7-26.3); KAPPA/LAMBDA RATIO SERUM 2.16 (0.26-1.65)
[2024-04-25 07:31] LABS: ALBUMIN SO 4.4 g/dL (3.8-4.8); ALPHA 1 GLOBULINS SO 0.2 g/dL (0.2-0.3); ALPHA 2 GLOBULINS SO 0.7 g/dL (0.5-0.9); BETA 2 GLOBULIN SO 0.4 g/dL (0.2-0.5); BETA GLOBULIN SO 0.5 g/dL (0.4-0.6); GAMMA GLOBULINS SO 0.9 g/dL (0.8-1.7)
[2024-04-25 18:16] LABS: VITAMIN B6,PYRIDOXAL PHOSPHATE 51.7 ng/mL (2.1-21.7)
== END ==
LOC: M PLALAB 10:39
PROVIDERS: ATTEND Family Medicine
DX: D47.2 Monoclonal gammopathy (principal); D50.9 Iron deficiency anemia, unspecified; E78.00 Pure hypercholesterolemia, unspecified

== ENCOUNTER → 2024-05-05 | Outpatient (CLI) | payer MEDICARE, MEDICAID | LOC: M SOG 07:47 | PROVIDERS: ATTEND Physician Assistant | DX: M16.0 Bilateral primary osteoarthritis of hip (principal) ==

== ENCOUNTER 2024-05-06 08:30 | Outpatient (RCR) | payer MEDICARE, MEDICAID | END 2024-05-16 | LOC: M PT 08:30 | PROVIDERS: ATTEND Physician Assistant | DX: S72.002D Fracture of unspecified part of neck of left femur, subsequent encounter for closed fracture with routine healing (principal) ==

== ENCOUNTER → 2024-11-03 | Outpatient (CLI) | payer MEDICARE, MEDICAID ==
[~2024-11-03] MED LIST changes: -ALPH600C PO; +ALPH600C2 PO
== END ==
LOC: M PLAIMG 10:54
PROVIDERS: ATTEND Family Medicine
DX: J18.9 Pneumonia, unspecified organism (principal)

== ENCOUNTER → 2024-12-14 | Outpatient (CLI) | payer MEDICARE, MEDICAID ==
[~2024-12-14] MED LIST changes: +PROHANCE 279.3MG/ML 15ML VIAL As Ordered ONE
== END ==
LOC: M RAD 12:54
PROVIDERS: ATTEND Family Medicine
DX: N28.89 Other specified disorders of kidney and ureter (principal); K80.20 Calculus of gallbladder without cholecystitis without obstruction; N28.1 Cyst of kidney, acquired
CPT/HCPCS: 74183; A9576

== ENCOUNTER 2025-02-01 09:49 | Day surgery (SDC) | payer MEDICARE, MEDICAID ==
[~2025-02-01] VITALS: Ht 165.1 cm; Wt 72.0 kg
[~2025-02-01 09:49] MED LIST changes: +IBUP200C29 PO; -PROHANCE 279.3MG/ML 15ML VIAL As Ordered ONE; +[UNRECOGNIZED DRUG - REMARK]
[2025-02-01 10:57] VITALS: TEMP 97
[2025-02-01 11:12] VITALS: BP 161/72; O2SAT 99
== END 2025-02-01 11:18 | disposition home or self-care (01) ==
LOC: M OPP 09:49
PROVIDERS: ATTEND Surgery
DX: K57.30 Diverticulosis of large intestine without perforation or abscess without bleeding (principal); K64.8 Other hemorrhoids; Z98.0 Intestinal bypass and anastomosis status; Z86.0100 Personal history of colon polyps, unspecified; Z88.0 Allergy status to penicillin; Z88.1 Allergy status to other antibiotic agents; Z88.2 Allergy status to sulfonamides; Z88.5 Allergy status to narcotic agent; Z88.8 Allergy status to other drugs, medicaments and biological substances; Z79.899 Other long term (current) drug therapy

== ENCOUNTER → 2025-02-13 | Outpatient (CLI) | payer MEDICARE, MEDICAID | LOC: M SOG 15:06 | PROVIDERS: ATTEND Physician Assistant | DX: M25.561 Pain in right knee (principal); M79.661 Pain in right lower leg; M17.11 Unilateral primary osteoarthritis, right knee ==